=== PATIENT | female | born 1950 | race Caucasian/White ===

== ENCOUNTER 2018-09-06 12:54 | Emergency (ER) | payer MEDICARE, BC ==
[2018-09-06 13:02] VITALS: RESP 18
[2018-09-06] MEDS ORDERED: SODIUM CHLORIDE 0.9% 1,000 ML IV STA (13:33)
[2018-09-06] MEDS ORDERED: METOCLOPRAMIDE 5 MG/ML 2 ML VIAL IVP STA (13:33)
[2018-09-06] MEDS ORDERED: diphenhydrAMINE 50 MG/ML 1 ML VIAL IVP STA (13:33)
--- NOTE | 2018-09-06 14:05 | ED ---
General Adult HPI - General Chief complaint: Headache Stated complaint: VIERA, vision changes Time Seen by Provider: 09/06/18 13:24 Source: patient, RN notes reviewed Mode of arrival: ambulatory Limitations: no limitations - History of Present Illness Initial comments: Patient's a 68-year-old female presenting to the emergency room today with a chief complaint of diplopia and headache. Patient does admit that headache started 2 days ago. She states it's located on the right side. She admits that it's located around the right eye and down into the jaw at times. He felt that it was due to some neck pain that she was having. She states that it is worse on the right side worse with certain movements of rotation. Patient unable to describe the type pain in the headache is. Currently rates an 8/10. States that she did take aspirin this morning for the headache but has not taken any else. Admits that yesterday began noticing double vision when she is using both eyes. When she covers left or right vision is normal at 1 eye at a time. Patient states she's never had symptoms similar to this in the past. She denies any other complaints. Patient denies any recent fever, chills, shortness of breath, chest pain, back pain, abdominal pain, nausea or vomiting, numbness or tingling, dysuria or hematuria, constipation or diarrhea, or any other complaints. - Related Data Home Medications Medication Instructions Recorded Confirmed Aspirin 650 mg PO DAILY PRN 09/06/18 09/06/18 buPROPion HCL [Wellbutrin SR] 150 mg PO BID 09/06/18 09/06/18 Allergies Allergy/AdvReac Type Severity Reaction Status Date / Time Penicillins Allergy Rash/Hives Verified 09/06/18 13:27 Sulfa (Sulfonamide Allergy tongue Verified 09/06/18 13:27 Antibiotics) swelling Review of Systems ROS Statement: Those systems with pertinent positive or pertinent negative responses have been documented in the HPI. ROS Other: All systems not noted in ROS Statement are negative. Past Medical History Past Medical History: No Reported History Additional Past Medical History / Comment(s): hx. colon polyps History of Any Multi-Drug Resistant Organisms: None Reported Past Surgical History: Tonsillectomy Additional Past Surgical History / Comment(s): catarat surg. Past Anesthesia/Blood Transfusion Reactions: No Reported Reaction Past Psychological History: No Psychological Hx Reported Smoking Status: Former smoker Past Alcohol Use History: Occasional Past Drug Use History: None Reported - Past Family History Mother Family Medical History: No Reported History General Exam - General Exam Comments Initial Comments: General: The patient is awake and alert, in no distress, and does not appear acutely ill. Eye: Pupils are equal, round and reactive to light, extra-ocular movements are intact. No nystagmus. There is normal conjunctiva bilaterally. No signs of icterus. Pressure in the right eye was 9 and pressure in the left 10. Ears, nose, mouth and throat: There are moist mucous membranes and no oral lesions. Mild tenderness to the temp oral area on the right on palpation. Neck: The neck is supple Cardiovascular: There is a regular rate and rhythm. No murmur, rub or gallop is appreciated. Respiratory: Lungs are clear to auscultation, respirations are non-labored, breath sounds are equal. No wheezes, stridor, rales, or rhonchi. Musculoskeletal: Normal ROM, no tenderness. Neurological: A&O x 3. CN II-XII intact, There are no obvious motor or sensory deficits. Coordination appears grossly intact. Speech is normal. Strength 5/5 bilaterally both upper and lower extremities. Normal rapid alternating movements. Mild over shooting with finger to nose. Skin: Skin is warm and dry and no rashes or lesions are noted. Psychiatric: Cooperative, appropriate mood & affect, normal judgment. Limitations: no limitations Course Vital Signs 09/06/18 12:59 Temperature 97.5 F L Pulse Rate 86 Respiratory 18 Rate Blood Pressure 158/89 O2 Sat by Pulse 98 Oximetry EKG Findings - EKG Comments: EKG Findings:: EKG performed at 1401: Shows normal sinus rhythm at [address] interval 162. QRS 88. QT/QTC 378/425. No acute ST changes. Medical Decision Making - Medical Decision Making 68-year-old female who presents emergency room today with chief complaint of diplopia and headache. Patient reexamined at this time shows no signs of distress. Patient's labs been reviewed showed a normal sed rate. CRP was 21. Patient's CT of the head reviewed shows no acute intracranial mass, hemorrhage or midline shift. Diffuse age-related cerebral atrophy and chronic small vessel ischemia. Case discussed in detail with attending physician Dr. Enrique did discuss with Dr. Mcneil inside sales territory manager on-call. He does recommend the patient is coming to his office and he will see them at 5 PM. Patient updated of the results and plan states understanding. States that she will go directly to his office. - Lab Data Result diagrams: 09/06/18 13:51 09/06/18 13:51 Lab Results 09/06/18 09/06/18 09/06/18 Range/Units 13:51 13:51 13:51 WBC 5.4 (3.8-10.6) k/uL RBC 4.53 (3.80-5.40) m/uL Hgb 14.4 (11.4-16.0) gm/dL Hct 44.5 (34.0-46.0) % MCV 98.3 (80.0-100.0) fL MCH 31.9 (25.0-35.0) pg MCHC 32.5 (31.0-37.0) g/dL RDW 12.4 (11.5-15.5) % Plt Count 355 (150-450) k/uL Neutrophils % 70 % Lymphocytes % 20 % Monocytes % 5 % Eosinophils % 2 % Basophils % 1 % Neutrophils # 3.8 (1.3-7.7) k/uL Lymphocytes # 1.1 (1.0-4.8) k/uL Monocytes # 0.3 (0-1.0) k/uL Eosinophils # 0.1 (0-0.7) k/uL Basophils # 0.1 (0-0.2) k/uL ESR 15 (0-20) mm/hr PT (9.0-12.0) sec INR (<1.2) APTT (22.0-30.0) sec Sodium 137 (137-145) mmol/L Potassium 4.4 (3.5-5.1) mmol/L Chloride 106 (98-107) mmol/L Carbon Dioxide 25 (22-30) mmol/L Anion Gap 6 mmol/L BUN 11 (7-17) mg/dL Creatinine 0.57 (0.52-1.04) mg/dL Est GFR (CKD-EPI)AfAm >90 (>60 ml/min/1.73 sqM) Est GFR (CKD-EPI)NonAf >90 (>60 ml/min/1.73 sqM) Glucose 101 H (74-99) mg/dL Calcium 8.6 (8.4-10.2) mg/dL Total Bilirubin 0.5 (0.2-1.3) mg/dL AST 18 (14-36) U/L ALT 25 (9-52) U/L Alkaline Phosphatase 84 (38-126) U/L Total Creatine Kinase 65 (30-135) U/L CK-MB (CK-2) 0.5 (0.0-2.4) ng/mL CK-MB (CK-2) Rel Index 0.8 Troponin I <0.012 (0.000-0.034) ng/mL C-Reactive Protein 21.1 H (<10.0) mg/L Total Protein 6.4 (6.3-8.2) g/dL Albumin 3.8 (3.5-5.0) g/dL 09/06/18 Range/Units 13:51 WBC (3.8-10.6) k/uL RBC (3.80-5.40) m/uL Hgb (11.4-16.0) gm/dL Hct (34.0-46.0) % MCV (80.0-100.0) fL MCH (25.0-35.0) pg MCHC (31.0-37.0) g/dL RDW (11.5-15.5) % Plt Count (150-450) k/uL Neutrophils % % Lymphocytes % % Monocytes % % Eosinophils % % Basophils % % Neutrophils # (1.3-7.7) k/uL Lymphocytes # (1.0-4.8) k/uL Monocytes # (0-1.0) k/uL Eosinophils # (0-0.7) k/uL Basophils # (0-0.2) k/uL ESR (0-20) mm/hr PT 9.9 (9.0-12.0) sec INR 0.9 (<1.2) APTT 25.2 (22.0-30.0) sec Sodium (137-145) mmol/L Potassium (3.5-5.1) mmol/L Chloride (98-107) mmol/L Carbon Dioxide (22-30) mmol/L Anion Gap mmol/L BUN (7-17) mg/dL Creatinine (0.52-1.04) mg/dL Est GFR (CKD-EPI)AfAm (>60 ml/min/1.73 sqM) Est GFR (CKD-EPI)NonAf (>60 ml/min/1.73 sqM) Glucose (74-99) mg/dL Calcium (8.4-10.2) mg/dL Total Bilirubin (0.2-1.3) mg/dL AST (14-36) U/L ALT (9-52) U/L Alkaline Phosphatase (38-126) U/L Total Creatine Kinase (30-135) U/L CK-MB (CK-2) (0.0-2.4) ng/mL CK-MB (CK-2) Rel Index Troponin I (0.000-0.034) ng/mL C-Reactive Protein (<10.0) mg/L Total Protein (6.3-8.2) g/dL Albumin (3.5-5.0) g/dL Disposition Clinical Impression: Diplopia, Headache Disposition: HOME SELF-CARE Condition: Good Instructions: Acute Headache (ED) Additional Instructions: Please proceed to your inside sales territory manager Dr. Mcneil office to meet him at 5p.m. Is patient prescribed a controlled substance at d/c from ED?: No Referrals: Kevin Hernandez MD [Primary Care Provider] - 1-2 days Nisha Mcneil MD [STAFF PHYSICIAN] - 1-2 days Time of Disposition: 15:59
[2018-09-06 14:10] LABS: Basophils # (A) 0.1 k/uL (0-0.2); Basophils % (A) 1 %; Eosinophils # (A) 0.1 k/uL (0-0.7); Eosinophils % (A) 2 %; HCT 44.5 % (34.0-46.0); HGB 14.4 gm/dL (11.4-16.0); Lymphocytes # (A) 1.1 k/uL (1.0-4.8); Lymphocytes % (A) 20 %; MCH 31.9 pg (25.0-35.0); MCHC 32.5 g/dL (31.0-37.0); MCV 98.3 fL (80.0-100.0); Mean Platelet Volume 6.4; Monocytes # (A) 0.3 k/uL (0-1.0); Monocytes % (A) 5 %; Neutrophils # (A) 3.8 k/uL (1.3-7.7); Neutrophils % (A) 70 %; Platelet Count 355 k/uL (150-450); RBC 4.53 m/uL (3.80-5.40); RDW 12.4 % (11.5-15.5); WBC 5.4 k/uL (3.8-10.6)
[2018-09-06 14:13] LABS: Chloride 106 mmol/L (98-107)
[2018-09-06 14:17] LABS: ALT 25 U/L (9-52); AST 18 U/L (14-36); Albumin 3.8 g/dL (3.5-5.0); Alkaline Phosphatase 84 U/L (38-126); Anion Gap 6 mmol/L; Blood Urea Nitrogen 11 mg/dL (7-17); C Reactive Protein 21.1 mg/L (<10.0); Calcium 8.6 mg/dL (8.4-10.2); Carbon Dioxide 25 mmol/L (22-30); Glucose 101 mg/dL (74-99); Potassium 4.4 mmol/L (3.5-5.1); Sodium 137 mmol/L (137-145); Total Bilirubin 0.5 mg/dL (0.2-1.3); Total Protein 6.4 g/dL (6.3-8.2)
[2018-09-06 14:21] LABS: Creatine Kinase 65 U/L (30-135)
[2018-09-06 14:22] LABS: INR 0.9 (<1.2); Partial Thromboplastin Time 25.2 sec (22.0-30.0); Prothrombin Time 9.9 sec (9.0-12.0)
[2018-09-06 14:34] LABS: Creatine Kinase MB 0.5 ng/mL (0.0-2.4); Troponin I <0.012 ng/mL (0.000-0.034)
--- NOTE | 2018-09-06 14:59 | CT ---
EXAMINATION TYPE: CT brain wo con DATE OF EXAM: 09/06/2018 HISTORY: dizziness and double vision CT DLP: 1098.4 mGycm. Automated Exposure Control for Dose Reduction was Utilized. TECHNIQUE: CT scan of the head is performed without contrast. COMPARISON: None. FINDINGS: There is no acute intracranial hemorrhage or midline shift identified. There is diffuse v entricular and sulcal prominence consistent with diffuse age-related cerebral atrophy. There is low- attenuation in the periventricular white matter consistent with chronic small vessel ischemic change. The globes are intact and the visualized sinuses are clear. IMPRESSION: No acute intracranial hemorrhage or midline shift. There is diffuse age-related cerebra l atrophy and chronic small vessel ischemic change noted.
[2018-09-06 15:14] LABS: Erythrocyte Sedimentation Rate 15 mm/hr (0-20)
[2018-09-06] MEDS ORDERED: KETOROLAC 30 MG/ML 1 ML VIAL IVP STA (15:37)
[2018-09-06 16:14] VITALS: BP 152/90; PULSE 72; TEMP 98.2
== END 2018-09-06 16:09 | disposition home or self-care (01) ==
LOC: EC 12:54
DX: H53.2 Diplopia (principal); R51 Headache; G31.1 Senile degeneration of brain, not elsewhere classified; M54.2 Cervicalgia; Z79.899 Other long term (current) drug therapy; Z88.0 Allergy status to penicillin; Z88.2 Allergy status to sulfonamides; Z87.891 Personal history of nicotine dependence
CPT/HCPCS: 36415; 93005; 80053; 85652; 82550; 82553; 84484; 85025; 85610; 85730; 86140; 70450; 99284; 96374; 96375 ×2; J1200; J2765; J1885

== ENCOUNTER 2018-09-06 17:36 | Inpatient (IN) | payer MEDICARE, BC ==
[2018-09-06] MEDS ORDERED: methylPREDNISolone SOD SUCCI 125 MG/2 ML VIAL IV STA (18:11)
[2018-09-06] MEDS ORDERED: NALOXONE 0.4 MG/ML 1 ML VIAL IV PRN (18:19)
--- NOTE | 2018-09-06 18:19 | ED ---
General Adult HPI - General Chief complaint: Recheck/Abnormal Lab/Rx Stated complaint: DOUBLE VISION Time Seen by Provider: 09/06/18 17:42 Source: patient, family, RN notes reviewed, old records reviewed Mode of arrival: ambulatory Limitations: no limitations - History of Present Illness Initial comments: Chief complaint and history of present illness this is a 68-year-old female seen earlier in emergency room and sent over to the rn operating room office for evaluation. He has sent her back with the probable diagnosis of temporal arteritis. He suggested the patient be admitted the hospital started on site Medrol 1 g with consultation from vascular surgery for biopsy as well as an MRI in the morning. I discussed the case with Dr. Samson. Patient be admitted to her service with the above suggestions to be followed. Patient has no other complaints other than the original complaint of discomfort to the right restorationist area with diplopia developed over the past 24 hours. The first chart was reviewed at length. Her CRP was elevated at 21. - Related Data Home Medications Medication Instructions Recorded Confirmed Aspirin 650 mg PO DAILY PRN 09/06/18 09/06/18 buPROPion HCL [Wellbutrin SR] 150 mg PO BID 09/06/18 09/06/18 Allergies Allergy/AdvReac Type Severity Reaction Status Date / Time Penicillins Allergy Rash/Hives Verified 09/06/18 17:41 Sulfa (Sulfonamide Allergy tongue Verified 09/06/18 17:41 Antibiotics) swelling Review of Systems ROS Statement: Those systems with pertinent positive or pertinent negative responses have been documented in the HPI. Review of systems unchanged from earlier visit with discomfort to the right restorationist area with diplopia affecting the right eye mild discomfort to the right side of the face. No other complaints. Past medical problems: Polyps, surgeries tonsillectomy and cataract surgery. Family history noncontributory former smoker quit years ago. Denies any connective tissue disorders or diagnoses of other medical problems in the past. ALLERGIES to penicillin and sulfa. ROS Other: All systems not noted in ROS Statement are negative. Past Medical History Past Medical History: No Reported History Additional Past Medical History / Comment(s): hx. colon polyps History of Any Multi-Drug Resistant Organisms: None Reported Past Surgical History: Tonsillectomy Additional Past Surgical History / Comment(s): catarat surg. Past Anesthesia/Blood Transfusion Reactions: No Reported Reaction Past Psychological History: No Psychological Hx Reported Smoking Status: Former smoker Past Alcohol Use History: Occasional Past Drug Use History: None Reported - Past Family History Mother Family Medical History: No Reported History General Exam - General Exam Comments Initial Comments: Physical examination again finds the patient with right sixth nerve palsy. Patient states that the pain started 2 days ago to the right side of her restorationist and face as well as right side of her face. She noticed the double vision yesterday and continues today. Patient's vital signs are stable temp 97.8, pulse 85, respiratory rate 18, blood pressure 173/104, pulse ox 96% on room air. Patient presents with diplopia secondary to right eye sixth nerve palsy. No pulsatile arteries appreciated this time. Patient reports the discomfort becomes worse she See area. No other neuro deficits. Lungs are clear heart normal. Limitations: no limitations Course Vital Signs 09/06/18 17:39 Temperature 97.8 F Pulse Rate 85 Respiratory 18 Rate Blood Pressure 173/104 O2 Sat by Pulse 96 Oximetry Medical Decision Making - Medical Decision Making Medical decision making; this 68-year-old female who was sent to the emergency room from the rn operating room office with a diagnosis of nerve palsy temporal arteritis. I discussed the case with Dr. Samson, patient be admitted to her service with consultation from vascular and ophthalmology. Disposition Clinical Impression: Temporal arteritis Disposition: ADMITTED IP TO THIS HOSP Condition: Serious Is patient prescribed a controlled substance at d/c from ED?: No Referrals: Kevin Hernandez MD [Primary Care Provider] - 1-2 days Time of Disposition: 18:19
[2018-09-06] MEDS ORDERED: ASPIRIN 325 MG TAB PO PRN (18:24)
[2018-09-06] MEDS: SODIUM CHLORIDE 0.9% 1,000 ML IV SCH (18:28)
[2018-09-06] MEDS ORDERED: LISINOPRIL 2.5 MG TAB PO STA (18:48)
[2018-09-06] MEDS: traMADol 50 MG TAB PO PRN (19:39)
[2018-09-06 19:50] VITALS: BMI 22.7
[2018-09-06] MEDS: buPROPion SR 150 MG TABLET.ER PO SCH (21:34)
[2018-09-07] MEDS: traMADol 50 MG TAB PO PRN ×3 (03:11→21:24)
[2018-09-07] MEDS: SODIUM CHLORIDE 0.9% 1,000 ML IV SCH (06:17)
[2018-09-07] MEDS: LISINOPRIL 5 MG TAB PO SCH (07:41)
[2018-09-07] MEDS: buPROPion SR 150 MG TABLET.ER PO SCH ×2 (07:41→21:24)
--- NOTE | 2018-09-07 12:41 | CONS ---
DATE OF CONSULTATION: 09/07/2018 This is a 68-year-old pleasant female. She came to the emergency room with history of discomfort and pain of the right side of the taoist and right shoulder and in the back of the neck for the last 2 days. The patient has history of diplopia. The patient was seen by the process laboratory specialist and referred to the ER to rule out temporal arteritis as well as for MRI this morning. No history of loss of vision. No history of any motor deficit. Patient has been started on steroids. MEDICAL HISTORY: No history of diabetes, hypertension or coronary artery disease. PHYSICAL EXAMINATION: On examination, the patient was seen in her room. Neck is supple. Trachea central. CHEST: Clear to auscultation. ABDOMEN: Soft. Brachial radial pulses are present. The patient has a normal motor function. The patient has double vision, temporal headache. No tenderness noted in the temporal area. ESR is 15. I have discussed with Dr. Samson. Patient most likely has sixth nerve palsy. The patient is scheduled to have a carotid ultrasound and MRI. In the meantime we will continue with steroids and we will review the MRI and ultrasound. Then if the patient needs biopsy, we will proceed. In the meantime we will continue with steroids. Will follow with you. MMODL / IJN: [id number] / [place]
--- NOTE | 2018-09-07 13:16 | US ---
EXAMINATION TYPE: US carotid duplex BILAT DATE OF EXAM: 09/07/2018 COMPARISON: NONE CLINICAL HISTORY: Diplopia, blurred vision. EXAM MEASUREMENTS: RIGHT: Peak Systolic Velocity (PSV) cm/sec ----- Right CCA: 73.5 ----- Right ICA: 70.2 ----- Right ECA: 108.1 ICA/CCA ratio: 1.0 RIGHT: End Diastole cm/sec ----- Right CCA: 16.4 ----- Right ICA: 21.9 ----- Right ECA: 9.5 LEFT: Peak Systolic Velocity (PSV) cm/sec ----- Left CCA: 83.2 ----- Left ICA: 70.0 ----- Left ECA: 84.5 ICA/CCA ratio: 0.8 LEFT: End Diastole cm/sec ----- Left CCA: 14.4 ----- Left ICA: 9.1 ----- Left ECA: 12.0 VERTEBRALS (direction of flow): Right Vertebral: Antegrade Left Vertebral: Antegrade Rhythm: Normal No significant stenosis seen, no elevated velocities. IMPRESSION: Mild degree of grayscale atheromatous plaquing with no sonographically evident hemodynam ically significant stenosis within either visualized carotid arterial system. Criteria for Assigning % of Stenosis / Diameter reduction (Estimation based on the indirect measurements of the internal carotid artery velocities (ICA PSV). 1. Normal (no stenosis)=ICA PSV < 125 cm/s: ratio < 2.0: ICA EDV<40 cm/s. 2. Less than 50% stenosis=ICA PSV < 125 cm/s: ratio < 2.0: ICA EDV<40 cm/s. 3. 50 to 69% stenosis=ICA PSV of 125 to 230 cm/s: ration 2.0 ? 4.0: ICA EDV 40-100 cm/s. 4. Greater than 70% stenosis to near occlusion= ICA PSV > 230 cm/s: ratio > 4.0: ICA EDV > 100 cm/s. 5. Near occlusion= ICA PSV velocities may be low or undetectable: variable ratio and ICA EDV. 6. Total occlusion=unable to detect flow.
[2018-09-07] MEDS ORDERED: ARTIFICIAL TEARS-HYPROMELLOSE DROPS 15 ML BTL RIGHT EYE PRN (13:49)
--- NOTE | 2018-09-07 13:53 | P.HPIM ---
History of Present Illness H&P Date: 09/07/18 Chief Complaint: Diplopia and headache This is a 68-year-old female patient of Dr. Hernandez with past medical history recurrent depression, remote history of smoking. Patient initially presented to the emergency center in the early afternoon on September 06 with complaints of diplopia and headache that started 2 days ago on the right side. Headache was located around the right eye and down into the jaw at times. She also was having some neck pain. Pain was worse with certain movements. She started having double vision on Friday evening when she noticed while she was watching TV. This occurs when she has both eyes open but if she covers her right eye her vision is clear. No fever or chills, shortness of breath, chest pain. Patient was sent to the night warehouse manager for evaluation and then returned to the emergency room as the ophthalmologists thought the probable diagnosis was temporal arteritis and patient will need to be admitted to the hospital. Patient was started on IV Solu-Medrol 1 dose of 1000 mg IV piggyback , consult with Dr. Ta and ophthalmology and patient was admitted to the [facility] floor. Patient has been afebrile, heart rate in the 80s, blood pressure 128/76, blood pressure was initially elevated 173/104, pulse ox 94% on room air. White count 5.4, hemoglobin 14.4, platelet count 355, lites within normal limits, creatinine 0.57, blood sugar 101. Liver function tests within normal limits, C-reactive protein 21.1, sed rate 15. Review of Systems All systems: negative Constitutional: Denies anorexia, Denies chills, Denies fatigue, Denies fever, Denies poor appetite, Denies weakness, Denies weight loss Eyes: right diplopia, right pain, denies blurred vision Ears, nose, mouth and throat: Reports headache, Denies dysphagia, Denies hoarseness, Denies nasal discharge, Denies swelling in mouth, Denies swelling in throat, Denies sore throat, Denies vertigo Cardiovascular: Denies chest pain, Denies dyspnea on exertion, Denies edema, Denies leg edema, Denies lightheadedness, Denies shortness of breath, Denies syncope Respiratory: Denies cough, Denies cough with sputum, Denies dyspnea, Denies excessive sputum, Denies hemoptysis, Denies home oxygen, Denies wheezing Gastrointestinal: Denies abdominal pain, Denies diarrhea, Denies loss of appetite, Denies melena, Denies nausea, Denies vomiting Genitourinary: Denies dysuria, Denies hematuria Musculoskeletal: Denies frequent falls, Denies gait dysfunction, Denies muscle weakness, Denies myalgias Integumentary: Denies pruritus, Denies rash, Denies wounds Neurological: Reports double vision, Reports headaches, Reports visual changes, Denies aphasia, Denies ataxia, Denies change in mentation, Denies change in speech, Denies confusion, Denies gait dysfunction, Denies head injury, Denies lack of coordination, Denies loss of vision, Denies memory loss, Denies numbness , Denies paresthesias, Denies seizures, Denies syncope, Denies tingling, Denies vertigo, Denies weakness Psychiatric: Denies anxiety, Denies depression Endocrine: Denies fatigue, Denies weight change Past Medical History Past Medical History: Osteoarthritis (OA), Pneumonia Additional Past Medical History / Comment(s): hx. colon polyps History of Any Multi-Drug Resistant Organisms: None Reported Past Surgical History: Tonsillectomy Additional Past Surgical History / Comment(s): catarat surg. Past Anesthesia/Blood Transfusion Reactions: No Reported Reaction Smoking Status: Former smoker Additional Past Alcohol Use History / Comment(s): Patient was a smoker one pack per day for more than 30 years and quit approximately 3 weeks ago. No marijuana or illicit drug use. She lives at home with her . She does not have any nebulizer, CPAP or ambulatory devices at home. She recently retired from [employer] May 2018. - Past Family History Mother Family Medical History: No Reported History Additional Family Medical History / Comment(s): Mother from Alzheimer's dementia. Father Additional Family Medical History / Comment(s): Father from coronary artery disease. Sister(s) Additional Family Medical History / Comment(s): Patient has 2 sisters with no major medical problems. Patient does not have any brothers. Patient has one son with no major medical problems. Medications and Allergies Home Medications Medication Instructions Recorded Confirmed Type Aspirin 325 mg PO DAILY PRN 09/06/18 09/06/18 History buPROPion HCL [Wellbutrin SR] 150 mg PO BID 09/06/18 09/06/18 History Allergies Allergy/AdvReac Type Severity Reaction Status Date / Time Penicillins Allergy Rash/Hives Verified 09/06/18 18:14 Sulfa (Sulfonamide Allergy tongue Verified 09/06/18 18:14 Antibiotics) swelling Physical Exam Vitals: Vital Signs Temp Pulse Pulse Pulse Resp BP BP 09/07/18 04:46 97.2 F L 88 16 128/76 09/06/18 23:06 82 18 09/06/18 21:15 96.9 F L 81 16 144/81 09/06/18 19:30 97.5 F L 83 16 157/74 09/06/18 18:48 18 142/94 09/06/18 17:39 97.8 F 85 18 173/104 Pulse Ox 09/07/18 04:46 94 L 09/06/18 23:06 09/06/18 21:15 96 09/06/18 19:30 96 09/06/18 18:48 09/06/18 17:39 96 Intake and Output 09/06/18 09/07/18 09/07/18 22:59 06:59 14:59 Intake Total 550 480 Balance 550 480 Intake: Intake, IV Titration 550 Amount Sodium Chloride 0.9% 1, 450 000 ml @ 75 mls/hr IV . [id number] [facility] Rx#:[id number] methylPREDNISolone SOD 100 SUCC 1,000 mg In Sodium Chloride 0.9% 100 ml @ 100 mls/hr IVPB ONCE ONE Rx#:[id number] Oral 480 Other: Voiding Method Toilet # Voids 1 1 Weight 65.77 kg 65.77 kg Gen: This is a 68-year-old female patient. Patient is resting in bed appears to be comfortable and in no acute distress. HEENT: Head is atraumatic, normocephalic. Pupils equal, round. Sclerae is anicteric. NECK: Supple. No JVD. No lymphadenopathy. No thyromegaly. LUNGS: Clear to auscultation. No wheezes or rhonchi. No intercostal retractions. HEART: Regular rate and rhythm. No murmur. ABDOMEN: Soft. Bowel sounds are present. No masses. No tenderness. EXTREMITIES: No pedal edema. No calf tenderness. NEUROLOGICAL: Patient is awake, alert and oriented x3. Cranial nerves 2 -5 7- 12 are grossly intact. No abduction movement of the right Thrombosis Risk Factor Assmnt - DVT/VTE Prophylaxis DVT/VTE Prophylaxis: Mechanical Prophylaxis ordered - Choose All That Apply Any of the Below Risk Factors Present?: Yes Each Factor Represents 1 point: Medical pt on bed rest Other Risk Factors: Yes Each Risk Factor Represents 2 Points: Age 61-74 years Other congenital or acquired thrombophilia - If yes, enter type in comment: No Thrombosis Risk Factor Assessment Total Risk Factor Score: 3 Thrombosis Risk Factor Assessment Level: Moderate Risk Assessment and Plan Plan: 1. Right eye diplopia and pain with cranial nerve palsy, rule out temporal arteritis. Patient has received 1 dose of IV Solu-Medrol and Solu-Medrol 250 mg every 6 hours ordered, Valtrex 1 g [address] times daily[address] Consult with Dr. Keyon soares. No plan for temporal artery biopsy as patient's sed rate is normal. Continue tramadol 50 g every 6 hours as needed for pain. PT and OT evaluations, I patch ordered and saline drops 2. Recurrent depression. Continue Wellbutrin 150 mg twice daily. 3. Hypertension, new diagnosis. Continue lisinopril 5 mg daily. 4. Remote history of tobacco use. Patient quit 3 weeks ago. 5. DVT prophylaxis. SCDs and MIKA hose. 6. GI prophylaxis. Pepcid. Patient will be admitted to the hospital for a minimum of 3 night stay. Discharge plan: Return home Impression and plan of care have been directed as dictated by the signing physician. Yanira Gilliland nurse practitioner acting as scribe for signing physician.
[2018-09-07 14:03] LABS: Glucose,Whole Blood 121 mg/dL (75-99)
[2018-09-07] MEDS: INSULIN ASPART 100 UNIT/ML 1 ML 10 ML VIAL SQ SCH ×3 (14:16→21:26)
[2018-09-07] MEDS: valACYclovir HCL 1,000 MG TABLET PO SCH ×3 (14:35→21:24)
--- NOTE | 2018-09-07 16:46 | MR ---
EXAMINATION TYPE: MR brain wo/w con DATE OF EXAM: 09/07/2018 COMPARISON: 9 HISTORY: CN palsy, double vision TECHNIQUE: Multiplanar, multisequence images of the brain and brainstem is performed without and with IV contras t, utilizing 7.5 mL intravenous Gadavist . FINDINGS: There is cerebral cortical atrophy. There is no mass effect nor midline shift. There is no sign of intracranial hemorrhage. On the T2 and FLAIR images there are extensive patches of increased signal in the periventricular white matter mainly in the centrum semiovale and internal capsule bilat erally. There is coalescent density. These measure up to 2 cm. Ventricles have fairly normal size. Th ere is no evidence of cortical infarct. Brainstem appears intact. There is mild thinning of the corpus callosum. Sella turcica appears normal . There is no evidence of orbital mass. There is no evidence of a posterior fossa mass. Internal auditory canals appear normal. The contrast images show no pathologic enhancement. There is arterial flow in the anterior middle and posterior cerebral arteries. There is arterial flow in the vertebrobasilar artery system. I see no e vidence of intracranial arterial stenosis. IMPRESSION: Cerebral atrophy. White matter changes consistent with chronic small vessel ischemia or demyelinating disease. No evidence of cortical infarct.
[2018-09-07 17:04] LABS: Glucose,Whole Blood 136 mg/dL (75-99)
[2018-09-07 20:38] LABS: Glucose,Whole Blood 142 mg/dL (75-99)
[2018-09-07 20:59] LABS: Hemoglobin A1C 5.1 % (4.0-6.0)
--- NOTE | 2018-09-07 22:41 | CONS ---
CONSULTATION CHIEF COMPLAINT: Diplopia. HISTORY OF PRESENT ILLNESS: Diplopia for the last 2 days following a severe headache on the right temporal area. REVIEW OF MEDICAL SYSTEMS: Reviewed. PHYSICAL EXAMINATION: Eye examination: Vision 20/25 right eye and 20/20 left eye. Extraocular motility shows right lateral rectus paresis. Pupils are equal and reactive. Confrontation normal. Tension applanation 16 mm right eye and 17 left eye. The lens shows an implant in both eyes. Discs: No disc edema in both eyes. ASSESSMENT: Right lateral rectus palsy. PLAN: MRI was performed. I reviewed MRI. It shows cerebellar ischemia versus demyelinating disease. The patient was essentially earlier diagnosed with possible temporal arteritis. Sedimentation rate is not elevated and she is still on steroid with monitoring of blood sugar. I will reexamine the patient in the clinic on upcoming Friday at 10:00 am. The patient was informed. Thank you for the consultation. MMGEORGIANAL / KARINAN: [id number] /
[2018-09-08] MEDS: traMADol 50 MG TAB PO PRN (05:28)
[2018-09-08 07:05] LABS: Glucose,Whole Blood 153 mg/dL (75-99)
[2018-09-08] MEDS: INSULIN ASPART 100 UNIT/ML 1 ML 10 ML VIAL SQ SCH ×2 (07:36→11:45)
[2018-09-08] MEDS: LISINOPRIL 5 MG TAB PO SCH (07:37)
[2018-09-08] MEDS: buPROPion SR 150 MG TABLET.ER PO SCH (07:37)
[2018-09-08] MEDS: valACYclovir HCL 1,000 MG TABLET PO SCH (07:37)
[2018-09-08] MEDS ORDERED: FAMOTIDINE 20 MG TAB PO SCH (09:00)
[2018-09-08 11:34] LABS: Glucose,Whole Blood 130 mg/dL (75-99)
--- NOTE | 2018-09-08 12:19 | P.DS ---
Providers Date of admission: 09/06/18 18:19 Expected date of discharge: 09/08/18 Attending physician: Vianney Samson Consults: 09/06/18 18:19 Consult Physician Stat Consulting Provider: Tom Ta Consult Reason/Comments: Right temporal arteritis Do you want consulting provider notified?: Yes Consult Physician Stat Consulting Provider: Nisha Mcneil Consult Reason/Comments: Temporal arteritis, diplopia Do you want consulting provider notified?: Yes Primary care physician: Kevin David [facility] Course: This is a 68-year-old female patient of Dr. Hernandez with past medical history recurrent depression, remote history of smoking. Patient initially presented to the emergency center in the early afternoon on September 06 with complaints of diplopia and headache that started 2 days ago on the right side. Headache was located around the right eye and down into the jaw at times. She also was having some neck pain. Pain was worse with certain movements. She started having double vision on Friday evening when she noticed while she was watching TV. This occurs when she has both eyes open but if she covers her right eye her vision is clear. No fever or chills, shortness of breath, chest pain. Patient was sent to the [facility] for evaluation and then returned to the emergency room as the ophthalmologists thought the probable diagnosis was temporal arteritis and patient will need to be admitted to the hospital. Patient was started on IV Solu-Medrol 1 dose of 1000 mg IV piggyback , consult with Dr. Ta and ophthalmology and patient was admitted to the [facility] floor. Patient has been afebrile, heart rate in the 80s, blood pressure 128/76, blood pressure was initially elevated 173/104, pulse ox 94% on room air. White count 5.4, hemoglobin 14.4, platelet count 355, lites within normal limits, creatinine 0.57, blood sugar 101. Liver function tests within normal limits, C-reactive protein 21.1, sed rate 15. 1/15: MRI of the brain reveals cerebral atrophy. White matter changes consistent with chronic small vessel ischemia or demyelinating disease. No evidence of cortical infarct. Ultrasound of the carotids showed no hemodynamically significant stenosis. Patient has been afebrile, pulse ox 94% on room air, blood pressure 150/86, heart rate running in the 80s and 90s. Repeat sed rate 11. Patient has been seen by Dr. Ta. Temporal arteritis has been ruled out. Patient has also been seen by ophthalmology for right lateral rectus paresis with plan to reexamine the patient in the office on Friday at 10 AM. Patient will be discharged home today in stable condition. Discharge diagnoses: 1. 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 2. Recurrent depression. 3. Hypertension, new diagnosis. 4. Remote history of tobacco use. Discharge plan: Return home Impression and plan of care have been directed as dictated by the signing physician. Yanira Gilliland nurse practitioner acting as scribe for signing physician. Patient Condition at Discharge: Good Plan - Discharge Summary Discharge Rx Participant: Yes New Discharge Prescriptions: New Lisinopril [Zestril] 5 mg PO DAILY #30 tab valACYclovir HCL [Valtrex] 1,000 mg PO TID #18 tablet predniSONE 0 mg PO DIRECTED #45 tab Continue Aspirin 325 mg PO DAILY PRN PRN Reason: Headache buPROPion HCL [Wellbutrin SR] 150 mg PO BID Discharge Medication List Aspirin 325 mg PO DAILY PRN 09/06/18 [History] buPROPion HCL [Wellbutrin SR] 150 mg PO BID 09/06/18 [History] Lisinopril [Zestril] 5 mg PO DAILY #30 tab 09/08/18 [Rx] predniSONE 0 mg PO DIRECTED #45 tab 09/08/18 [Rx] valACYclovir HCL [Valtrex] 1,000 mg PO TID #18 tablet 09/08/18 [Rx] Follow up Appointment(s)/Referral(s): Purnima Guidry MD [STAFF PHYSICIAN] - 1 Week Nisha Mcneil MD [STAFF PHYSICIAN] - 09/11/18 10:00 am Kevin Hernandez MD [Primary Care Provider] - 1 Week Patient Instructions/Handouts: Temporal Arteritis (GEN) Activity/Diet/Wound Care/Special Instructions: Outpatient PT and OT Discharge Disposition: HOME SELF-CARE
[2018-09-08 13:03] VITALS: BP 127/77; PULSE 93; RESP 16; TEMP 97.6
== END 2018-09-08 14:16 | disposition home or self-care (01) | DRG 123 ==
LOC: EC 17:36 → 3NMEDONC 18:19 → 6PED 09-08 10:19
PROVIDERS: ADMIT Family Medicine; ATTEND Family Medicine
DX: H49.20 Sixth [abducent] nerve palsy, unspecified eye (principal); F33.9 Major depressive disorder, recurrent, unspecified; G37.9 Demyelinating disease of central nervous system, unspecified; I10 Essential (primary) hypertension; Z79.82 Long term (current) use of aspirin; Z79.899 Other long term (current) drug therapy; Z82.0 Family history of epilepsy and other diseases of the nervous system; Z82.49 Family history of ischemic heart disease and other diseases of the circulatory system; Z86.010 Personal history of colon polyps; Z87.891 Personal history of nicotine dependence; M19.90 Unspecified osteoarthritis, unspecified site; Z87.01 Personal history of pneumonia (recurrent); Z88.0 Allergy status to penicillin; Z88.2 Allergy status to sulfonamides; H53.2 Diplopia; Z98.42 Cataract extraction status, left eye; Z98.41 Cataract extraction status, right eye; Z96.1 Presence of intraocular lens
CPT/HCPCS: 70553; 83036; 85652; 93880; 96365; 99285

== ENCOUNTER → 2018-09-18 | Outpatient (CLI) | payer MEDICARE, BC ==
--- NOTE | 2018-09-18 14:27 | MR ---
EXAMINATION TYPE: MR angio head wo con DATE OF EXAM: 09/18/2018 COMPARISON: None HISTORY: sixth nerve palsy of right eye CONTRAST: None TECHNIQUE: Multiplanar multiecho imaging on a 3.0 Sherita magnet is performed through the atka of Alli lis. 3-D [id number] imaging is performed. Source images are reviewed on the computer in the axi al plane. Reconstructed images rotating on the computer are reviewed. FINDINGS: The internal carotid arteries bifurcate normally into A1 and M1 segments. The A2 segments are normal. Middle cerebral artery branches are normal. Ophthalmic arteries as visualized appear no rmal. Anterior communicating artery is patent. The right posterior communicating artery is absent. The left posterior communicating artery is absent. Vertebrobasilar arteries within the [id number] are normal. Posterior cerebral vasculature is norm al. No suspicious aneurysm or aneurysmal dilatation is evident. No obstructions are identified. No significant flow-limiting stenosis is evident. IMPRESSIONS: 1. NORMAL MRA [place].
== END | disposition home or self-care (01) ==
LOC: RADMRIMAIN 13:41
PROVIDERS: ATTEND Psychiatry & Neurology Neurology
DX: H49.21 Sixth [abducent] nerve palsy, right eye (principal); H49.01 Third [oculomotor] nerve palsy, right eye
CPT/HCPCS: 70544

== ENCOUNTER → 2018-10-10 | Outpatient (CLI) | payer MEDICARE, BC ==
--- NOTE | 2018-10-10 12:59 | XR ---
EXAMINATION TYPE: XR chest 2V DATE OF EXAM: 10/10/2018 COMPARISON: NONE HISTORY: Shortness of breath TECHNIQUE: Frontal and lateral views of the chest are obtained. FINDINGS: Scattered senescent parenchymal changes noted. Hyperinflation compatible with COPD. No evidence for infiltrate. No evidence for atelectasis. Heart size is stable. Mediastinal structures are stable and grossly unremarkable. No evidence for hilar prominence. Degenerative changes dorsal spine. IMPRESSION: 1. No evidence for acute pulmonary disease.
--- NOTE | 2018-10-10 13:00 | XR ---
EXAMINATION TYPE: XR ribs bilateral DATE OF EXAM: 10/10/2018 CLINICAL HISTORY: Pain, Fall 8 views of the bilateral ribs fail demonstrate evidence for displaced rib fracture or secondary sign of rib fracture. Visualized lungs are clear. No evidence for pneumothorax. IMPRESSION: 1. No displaced rib fractures seen. ICD 10 NO FRACTURE, INITIAL EVALUATION
== END ==
LOC: RADXRMAIN 12:22
PROVIDERS: ATTEND Internal Medicine Geriatric Medicine
DX: R06.02 Shortness of breath (principal)
CPT/HCPCS: 71046; 71110

== ENCOUNTER → 2020-02-17 | Outpatient (CLI) | payer MEDICARE, BC ==
--- NOTE | 2020-02-17 14:43 | CTL ---
EXAMINATION TYPE: CT Low Dose Lung DATE OF EXAM ORDERED: 02/17/2020 HISTORY: Long-term tobacco use. Lung cancer screening CT DLP: [address] CTDI: 1.8 mGy Automated exposure control for dose reduction was used. SCREENING VISIT: For study COMPARISON: Chest x-ray October 10, 2018 TECHNIQUE: Low dose computed tomography scan was performed through the chest at 1 mm thick sections a nd reconstructed images in the coronal plane at [address] DIAGNOSTIC QUALITY: Satisfactory FINDINGS: LUNG NODULES: None. Few scattered micronodules all measuring 3 mm or smaller in size, largest 3 x 2 mm seen best sagittal image 285 LUNGS: COPD: Severity: Moderate Fibrosis: Severity: Mild posterior bibasilar just above diaphragm. Lymph nodes: No greater than 1 cm Other findings: None BILATERAL PLEURAL SPACE: Effusion: None Calcification: None Thickening: None Pneumothorax: None HEART: Heart Size: Normal. Coronary calcification: Moderate versus stent proximal LAD, correlate clinically Pericardial effusion: None. OTHER FINDINGS: Upper abdomen: None. Bony thorax: Mild to moderate multilevel anterior spurring. Supraclavicular region: None. Other: Ascending aorta measures up to 4.0 cm in diameter axial image 31 series 3. IMPRESSION: No suspicious greater than [address] UP [address] CHEST RECOMMENDATION: Annual low-dose lung screening CT. CT LUNG RAD: Lung-Rad 1 Negative
== END | disposition home or self-care (01) ==
LOC: RADCTMAIN 14:03
PROVIDERS: ATTEND Internal Medicine Geriatric Medicine
DX: Z12.2 Encounter for screening for malignant neoplasm of respiratory organs (principal); Z87.891 Personal history of nicotine dependence

== ENCOUNTER 2020-09-04 19:13 | Inpatient (IN) | payer BC, MEDICARE ==
[2020-09-04] MEDS ORDERED: SODIUM CHLORIDE 0.9% 1,000 ML IV STA (19:20)
[2020-09-04] MEDS ORDERED: IPRATROPIUM-ALBUTEROL 3 ML NEB INHALATION STA (19:20)
[2020-09-04] MEDS ORDERED: MAGNESIUM SULFATE-D5W PMX 1 GM in DEXTROSE/WATER 1 100ML.BAG IVPB STA (19:20)
--- NOTE | 2020-09-04 19:38 | ED ---
SOB HPI - General Chief Complaint: Shortness of Breath Stated Complaint: DOMINIQUE Time Seen by Provider: 09/04/20 19:17 Source: patient, EMS Mode of arrival: EMS Limitations: no limitations - History of Present Illness Initial Comments: This 70-year-old female presents complaining of shortness of breath. She apparently has had it for the last 3 days but worse over the last 3 hours. She relates a history of COPD. She just recently quit smoking. She apparently used her inhalers approximately 15-20 times this afternoon prior to arrival. She denies any fevers or chills. She's had a slight cough with slight clear production. She has occasional chest heaviness bilaterally without radiation. She does present via EMS in extremis. The have her on a nonrebreather upon arrival and she received 125 mg of Solu-Medrol prior to arrival as well. She does not have a nebulizer machine at home. She denies any leg pain or swelling. No other complaints or modifying factors. She relates that her pulse oximeter at home was apparently 89% at lowest today. She also relates that her shortness of breath was much worse with any minimal exertion like getting up to go to the bathroom. - Related Data Home Medications Medication Instructions Recorded Confirmed buPROPion HCL [Wellbutrin SR] 150 mg PO BID 09/06/18 09/04/20 Albuterol Sulfate [Ventolin HFA] 1 - 2 puff INHALATION RT-Q6H PRN 09/04/20 09/04/20 Aspirin EC [Ecotrin Low Dose] 81 mg PO DAILY 09/04/20 09/04/20 Ergocalciferol [Vitamin D2] 50,000 unit PO TU 09/04/20 09/04/20 [place]-3 Fatty Acids/Fish Oil [Fish 1 cap PO DAILY 09/04/20 09/04/20 Oil 1,000 mg Softgel] Vitamin B Complex 1 cap PO DAILY 09/04/20 09/04/20 predniSONE 5 mg PO DAILY 09/04/20 09/04/20 Previous Rx's Medication Instructions Recorded lisinopriL [Zestril] 5 mg PO DAILY #30 tab 09/08/18 Allergies Allergy/AdvReac Type Severity Reaction Status Date / Time Penicillins Allergy Rash/Hives Verified 09/04/20 20:36 Sulfa (Sulfonamide Allergy tongue Verified 01/11/21 20:36 Antibiotics) swelling Review of Systems ROS Statement: Those systems with pertinent positive or pertinent negative responses have been documented in the HPI. ROS Other: All systems not noted in ROS Statement are negative. Past Medical History Past Medical History: COPD, Hypertension, Osteoarthritis (OA), Pneumonia Additional Past Medical History / Comment(s): hx. colon polyps History of Any Multi-Drug Resistant Organisms: None Reported Past Surgical History: Tonsillectomy Additional Past Surgical History / Comment(s): catarat surg. Past Anesthesia/Blood Transfusion Reactions: No Reported Reaction Past Psychological History: No Psychological Hx Reported Smoking Status: Never smoker Past Alcohol Use History: Occasional Past Drug Use History: None Reported - Past Family History Mother Family Medical History: No Reported History Additional Family Medical History / Comment(s): Mother from Alzheimer's dementia. Father Additional Family Medical History / Comment(s): Father from coronary artery disease. Sister(s) Additional Family Medical History / Comment(s): Patient has 2 sisters with no major medical problems. Patient does not have any brothers. Patient has one son with no major medical problems. General Exam - General Exam Comments Initial Comments: GENERAL: The patient is well nourished and well hydrated. VITAL SIGNS: Heart rate, blood pressure, respiratory rate reviewed as recorded in nurse's notes. EYES: Pupils are round and reactive. Extraocular movements are intact. No conjunctival / lid redness or swelling. ENT: No external evidence of injury, swelling, or ecchymosis. Airway is patent. Throat is clear. NECK: Nontender. No swelling or evidence of injury. No subcutaneous emphysema. Trachea is midline. No thyroid mass. HEART: Regular rate and rhythm. Good peripheral pulses. LUNGS/CHEST: Significant wheezing noted bilaterally, very tachypneic, accessory muscle use noted. No ecchymosis, subcutaneous emphysema, or tenderness. ABDOMEN: Abdomen soft without tenderness. No palpable masses or organomegaly. No peritoneal signs. No abdominal wall swelling or ecchymosis. EXTREMITIES: No extremity tenderness. Normal muscle tone and function. No thoracolumbar tenderness. NEUROLOGIC: Sensation is grossly intact. Cranial nerve exam reveals face is symmetrical, tongue is midline, speech is clear. SKIN: No abrasions or ecchymosis is noted. No induration or masses noted. PSYCHIATRIC: Alert and oriented. Appropriate behavior and judgment with moderate anxiety. Limitations: no limitations Course Vital Signs 09/04/20 09/04/20 09/04/20 19:16 19:22 19:26 Temperature 97.5 F L Pulse Rate 93 106 H Respiratory 30 H 30 H Rate Blood Pressure 180/128 O2 Sat by Pulse 95 Oximetry 09/04/20 09/04/20 19:43 19:46 Temperature Pulse Rate 106 H 105 H Respiratory 23 Rate Blood Pressure O2 Sat by Pulse 96 Oximetry Medical Decision Making - Medical Decision Making The patient was seen and examined. All diagnostics are reviewed. Case is discussed with the respiratory therapist in 2 DuoNeb breathing treatments will be utilized. It is felt as though she may benefit from use of BiPAP and she is placed on this. Magnesium is given intravenously. She already received Solu- Medrol via EMS so this is not repeated. The laboratory is essentially within normal limits except for a slight elevation of the hemoglobin and hematocrit. The COVID test is negative. The chest x-ray did not show any acute process. She is started on the BiPAP and is doing much better. The patient is also ordered 2 additional albuterol treatments. Attempts will be made to wean her off BiPAP if possible. Case is discussed with Dr. Hernandez and he is agreeable to admission to the hospital. It is felt as though her main problem is that of a COPD exacerbation. Dr. Hernandez is agreeable with one dose of Zithromax and Rocephin and would like Dr. Chandra to consult. - Lab Data Result diagrams: 09/04/20 19:46 09/04/20 19:46 Lab Results 09/04/20 09/04/20 09/04/20 Range/Units 19:46 19:46 19:46 WBC 7.1 (3.8-10.6) k/uL RBC 5.02 (3.80-5.40) m/uL Hgb 16.7 H (11.4-16.0) gm/dL Hct 49.6 H (34.0-46.0) % MCV 98.9 (80.0-100.0) fL MCH 33.3 (25.0-35.0) pg MCHC 33.7 (31.0-37.0) g/dL RDW 11.7 (11.5-15.5) % Plt Count 324 (150-450) k/uL MPV 7.3 Neutrophils % 66 % Lymphocytes % 21 % Monocytes % 5 % Eosinophils % 5 % Basophils % 2 % Neutrophils # 4.7 (1.3-7.7) k/uL Lymphocytes # 1.5 (1.0-4.8) k/uL Monocytes # 0.3 (0-1.0) k/uL Eosinophils # 0.3 (0-0.7) k/uL Basophils # 0.2 (0-0.2) k/uL PT 10.4 (9.0-12.0) sec INR 1.0 (<1.2) APTT 24.4 (22.0-30.0) sec Sodium 138 (137-145) mmol/L Potassium 4.8 (3.5-5.1) mmol/L Chloride 106 (98-107) mmol/L Carbon Dioxide 24 (22-30) mmol/L Anion Gap 8 mmol/L BUN 12 (7-17) mg/dL Creatinine 0.58 (0.52-1.04) mg/dL Est GFR (CKD-EPI)AfAm >90 (>60 ml/min/1.73 sqM) Est GFR (CKD-EPI)NonAf >90 (>60 ml/min/1.73 sqM) Glucose 120 H (74-99) mg/dL Plasma Lactic Acid Tank (0.7-2.0) mmol/L Calcium 9.2 (8.4-10.2) mg/dL Magnesium 2.1 (1.6-2.3) mg/dL Total Bilirubin 0.6 (0.2-1.3) mg/dL AST 31 (14-36) U/L ALT 25 (4-34) U/L Alkaline Phosphatase 86 (38-126) U/L Troponin I (0.000-0.034) ng/mL NT-Pro-B Natriuret Pep pg/mL Total Protein 7.3 (6.3-8.2) g/dL Albumin 4.6 (3.5-5.0) g/dL Coronavirus (PCR) (Not Detectd) 09/04/20 09/04/20 09/04/20 Range/Units 19:46 19:46 19:46 WBC (3.8-10.6) k/uL RBC (3.80-5.40) m/uL Hgb (11.4-16.0) gm/dL Hct (34.0-46.0) % MCV (80.0-100.0) fL MCH (25.0-35.0) pg MCHC (31.0-37.0) g/dL RDW (11.5-15.5) % Plt Count (150-450) k/uL MPV Neutrophils % % Lymphocytes % % Monocytes % % Eosinophils % % Basophils % % Neutrophils # (1.3-7.7) k/uL Lymphocytes # (1.0-4.8) k/uL Monocytes # (0-1.0) k/uL Eosinophils # (0-0.7) k/uL Basophils # (0-0.2) k/uL PT (9.0-12.0) sec INR (<1.2) APTT (22.0-30.0) sec Sodium (137-145) mmol/L Potassium (3.5-5.1) mmol/L Chloride (98-107) mmol/L Carbon Dioxide (22-30) mmol/L Anion Gap mmol/L BUN (7-17) mg/dL Creatinine (0.52-1.04) mg/dL Est GFR (CKD-EPI)AfAm (>60 ml/min/1.73 sqM) Est GFR (CKD-EPI)NonAf (>60 ml/min/1.73 sqM) Glucose (74-99) mg/dL Plasma Lactic Acid Tank 1.3 (0.7-2.0) mmol/L Calcium (8.4-10.2) mg/dL Magnesium (1.6-2.3) mg/dL Total Bilirubin (0.2-1.3) mg/dL AST (14-36) U/L ALT (4-34) U/L Alkaline Phosphatase (38-126) U/L Troponin I <0.012 (0.000-0.034) ng/mL NT-Pro-B Natriuret Pep 132 pg/mL Total Protein (6.3-8.2) g/dL Albumin (3.5-5.0) g/dL Coronavirus (PCR) (Not Detectd) 09/04/20 Range/Units 19:46 WBC (3.8-10.6) k/uL RBC (3.80-5.40) m/uL Hgb (11.4-16.0) gm/dL Hct (34.0-46.0) % MCV (80.0-100.0) fL MCH (25.0-35.0) pg MCHC (31.0-37.0) g/dL RDW (11.5-15.5) % Plt Count (150-450) k/uL MPV Neutrophils % % Lymphocytes % % Monocytes % % Eosinophils % % Basophils % % Neutrophils # (1.3-7.7) k/uL Lymphocytes # (1.0-4.8) k/uL Monocytes # (0-1.0) k/uL Eosinophils # (0-0.7) k/uL Basophils # (0-0.2) k/uL PT (9.0-12.0) sec INR (<1.2) APTT (22.0-30.0) sec Sodium (137-145) mmol/L Potassium (3.5-5.1) mmol/L Chloride (98-107) mmol/L Carbon Dioxide (22-30) mmol/L Anion Gap mmol/L BUN (7-17) mg/dL Creatinine (0.52-1.04) mg/dL Est GFR (CKD-EPI)AfAm (>60 ml/min/1.73 sqM) Est GFR (CKD-EPI)NonAf (>60 ml/min/1.73 sqM) Glucose (74-99) mg/dL Plasma Lactic Acid Tank (0.7-2.0) mmol/L Calcium (8.4-10.2) mg/dL Magnesium (1.6-2.3) mg/dL Total Bilirubin (0.2-1.3) mg/dL AST (14-36) U/L ALT (4-34) U/L Alkaline Phosphatase (38-126) U/L Troponin I (0.000-0.034) ng/mL NT-Pro-B Natriuret Pep pg/mL Total Protein (6.3-8.2) g/dL Albumin (3.5-5.0) g/dL Coronavirus (PCR) Not Detected (Not Detectd) Disposition Clinical Impression: Acute respiratory failure, Bronchospasm, Hypertensive crisis, Hypoxia, COPD exacerbation, Tachypnea Disposition: ADMITTED IP TO THIS HOSP Condition: Fair Is patient prescribed a controlled substance at d/c from ED?: No Time of Disposition: 21:06 Decision Date: 09/04/20 Decision Time: 21:07
[2020-09-04 19:58] LABS: Basophils # (A) 0.2 k/uL (0-0.2); Basophils % (A) 2 %; Eosinophils # (A) 0.3 k/uL (0-0.7); Eosinophils % (A) 5 %; HCT 49.6 % (34.0-46.0); HGB 16.7 gm/dL (11.4-16.0); Lymphocytes # (A) 1.5 k/uL (1.0-4.8); Lymphocytes % (A) 21 %; MCH 33.3 pg (25.0-35.0); MCHC 33.7 g/dL (31.0-37.0); MCV 98.9 fL (80.0-100.0); Mean Platelet Volume 7.3; Monocytes # (A) 0.3 k/uL (0-1.0); Monocytes % (A) 5 %; Neutrophils # (A) 4.7 k/uL (1.3-7.7); Neutrophils % (A) 66 %; Platelet Count 324 k/uL (150-450); RBC 5.02 m/uL (3.80-5.40); RDW 11.7 % (11.5-15.5); WBC 7.1 k/uL (3.8-10.6)
--- NOTE | 2020-09-04 20:04 | XR ---
EXAMINATION TYPE: XR chest 1V portable DATE OF EXAM: 09/04/2020 COMPARISON: 10/10/2018. HISTORY: Shortness of breath. TECHNIQUE: Single frontal view of the chest is obtained. FINDINGS: There is no focal air space opacity, pleural effusion, or pneumothorax seen. Stable backg round of COPD. The cardiac silhouette size is within normal limits. The osseous structures are inta ct. IMPRESSION: No acute process. COPD.
[2020-09-04 20:07] LABS: ALT 25 U/L (4-34); AST 31 U/L (14-36); African American GFR (CKD) >90 (>60 ml/min/1.73 sqM); Albumin 4.6 g/dL (3.5-5.0); Alkaline Phosphatase 86 U/L (38-126); Anion Gap 8 mmol/L; Blood Urea Nitrogen 12 mg/dL (7-17); Calcium 9.2 mg/dL (8.4-10.2); Carbon Dioxide 24 mmol/L (22-30); Chloride 106 mmol/L (98-107); Glucose 120 mg/dL (74-99); Magnesium 2.1 mg/dL (1.6-2.3); Non-African American GFR(CKD) >90 (>60 ml/min/1.73 sqM); Potassium 4.8 mmol/L (3.5-5.1); Sodium 138 mmol/L (137-145); Total Bilirubin 0.6 mg/dL (0.2-1.3); Total Protein 7.3 g/dL (6.3-8.2)
[2020-09-04 20:11] LABS: Partial Thromboplastin Time 24.4 sec (22.0-30.0); Prothrombin Time 10.4 sec (9.0-12.0)
[2020-09-04] MEDS ORDERED: ALBUTEROL NEBULIZED 2.5 MG/3 ML INHALATION STA (20:48)
[2020-09-04] MEDS ORDERED: AZITHROMYCIN 500 MG in SODIUM CHLORIDE 0.9% 250 ML IVPB STA (21:03)
[2020-09-04] MEDS ORDERED: IPRATROPIUM-ALBUTEROL 3 ML NEB INHALATION PRN (21:08)
[2020-09-04] MEDS ORDERED: ALBUTEROL NEBULIZED 2.5 MG/3 ML INHALATION PRN (21:08)
--- NOTE | 2020-09-04 21:08 | ED ---
Medical Decision Making - Medical Decision Making The EKG is reviewed and shows a normal sinus rhythm at a rate of 98. There is no acute ST-T wave changes noted. There is no evidence of ST elevation. The IA intervals 156, QRS duration is 86, and the QTc interval is 457. - Lab Data Result diagrams: 09/04/20 19:46 09/04/20 19:46 Lab Results 09/04/20 09/04/20 09/04/20 Range/Units 19:46 19:46 19:46 WBC 7.1 (3.8-10.6) k/uL RBC 5.02 (3.80-5.40) m/uL Hgb 16.7 H (11.4-16.0) gm/dL Hct 49.6 H (34.0-46.0) % MCV 98.9 (80.0-100.0) fL MCH 33.3 (25.0-35.0) pg MCHC 33.7 (31.0-37.0) g/dL RDW 11.7 (11.5-15.5) % Plt Count 324 (150-450) k/uL MPV 7.3 Neutrophils % 66 % Lymphocytes % 21 % Monocytes % 5 % Eosinophils % 5 % Basophils % 2 % Neutrophils # 4.7 (1.3-7.7) k/uL Lymphocytes # 1.5 (1.0-4.8) k/uL Monocytes # 0.3 (0-1.0) k/uL Eosinophils # 0.3 (0-0.7) k/uL Basophils # 0.2 (0-0.2) k/uL PT 10.4 (9.0-12.0) sec INR 1.0 (<1.2) APTT 24.4 (22.0-30.0) sec Sodium 138 (137-145) mmol/L Potassium 4.8 (3.5-5.1) mmol/L Chloride 106 (98-107) mmol/L Carbon Dioxide 24 (22-30) mmol/L Anion Gap 8 mmol/L BUN 12 (7-17) mg/dL Creatinine 0.58 (0.52-1.04) mg/dL Est GFR (CKD-EPI)AfAm >90 (>60 ml/min/1.73 sqM) Est GFR (CKD-EPI)NonAf >90 (>60 ml/min/1.73 sqM) Glucose 120 H (74-99) mg/dL Plasma Lactic Acid Tank (0.7-2.0) mmol/L Calcium 9.2 (8.4-10.2) mg/dL Magnesium 2.1 (1.6-2.3) mg/dL Total Bilirubin 0.6 (0.2-1.3) mg/dL AST 31 (14-36) U/L ALT 25 (4-34) U/L Alkaline Phosphatase 86 (38-126) U/L Troponin I (0.000-0.034) ng/mL NT-Pro-B Natriuret Pep pg/mL Total Protein 7.3 (6.3-8.2) g/dL Albumin 4.6 (3.5-5.0) g/dL Coronavirus (PCR) (Not Detectd) 09/04/20 09/04/20 09/04/20 Range/Units 19:46 19:46 19:46 WBC (3.8-10.6) k/uL RBC (3.80-5.40) m/uL Hgb (11.4-16.0) gm/dL Hct (34.0-46.0) % MCV (80.0-100.0) fL MCH (25.0-35.0) pg MCHC (31.0-37.0) g/dL RDW (11.5-15.5) % Plt Count (150-450) k/uL MPV Neutrophils % % Lymphocytes % % Monocytes % % Eosinophils % % Basophils % % Neutrophils # (1.3-7.7) k/uL Lymphocytes # (1.0-4.8) k/uL Monocytes # (0-1.0) k/uL Eosinophils # (0-0.7) k/uL Basophils # (0-0.2) k/uL PT (9.0-12.0) sec INR (<1.2) APTT (22.0-30.0) sec Sodium (137-145) mmol/L Potassium (3.5-5.1) mmol/L Chloride (98-107) mmol/L Carbon Dioxide (22-30) mmol/L Anion Gap mmol/L BUN (7-17) mg/dL Creatinine (0.52-1.04) mg/dL Est GFR (CKD-EPI)AfAm (>60 ml/min/1.73 sqM) Est GFR (CKD-EPI)NonAf (>60 ml/min/1.73 sqM) Glucose (74-99) mg/dL Plasma Lactic Acid Tank 1.3 (0.7-2.0) mmol/L Calcium (8.4-10.2) mg/dL Magnesium (1.6-2.3) mg/dL Total Bilirubin (0.2-1.3) mg/dL AST (14-36) U/L ALT (4-34) U/L Alkaline Phosphatase (38-126) U/L Troponin I <0.012 (0.000-0.034) ng/mL NT-Pro-B Natriuret Pep 132 pg/mL Total Protein (6.3-8.2) g/dL Albumin (3.5-5.0) g/dL Coronavirus (PCR) (Not Detectd) 09/04/20 Range/Units 19:46 WBC (3.8-10.6) k/uL RBC (3.80-5.40) m/uL Hgb (11.4-16.0) gm/dL Hct (34.0-46.0) % MCV (80.0-100.0) fL MCH (25.0-35.0) pg MCHC (31.0-37.0) g/dL RDW (11.5-15.5) % Plt Count (150-450) k/uL MPV Neutrophils % % Lymphocytes % % Monocytes % % Eosinophils % % Basophils % % Neutrophils # (1.3-7.7) k/uL Lymphocytes # (1.0-4.8) k/uL Monocytes # (0-1.0) k/uL Eosinophils # (0-0.7) k/uL Basophils # (0-0.2) k/uL PT (9.0-12.0) sec INR (<1.2) APTT (22.0-30.0) sec Sodium (137-145) mmol/L Potassium (3.5-5.1) mmol/L Chloride (98-107) mmol/L Carbon Dioxide (22-30) mmol/L Anion Gap mmol/L BUN (7-17) mg/dL Creatinine (0.52-1.04) mg/dL Est GFR (CKD-EPI)AfAm (>60 ml/min/1.73 sqM) Est GFR (CKD-EPI)NonAf (>60 ml/min/1.73 sqM) Glucose (74-99) mg/dL Plasma Lactic Acid Tank (0.7-2.0) mmol/L Calcium (8.4-10.2) mg/dL Magnesium (1.6-2.3) mg/dL Total Bilirubin (0.2-1.3) mg/dL AST (14-36) U/L ALT (4-34) U/L Alkaline Phosphatase (38-126) U/L Troponin I (0.000-0.034) ng/mL NT-Pro-B Natriuret Pep pg/mL Total Protein (6.3-8.2) g/dL Albumin (3.5-5.0) g/dL Coronavirus (PCR) Not Detected (Not Detectd) Disposition Clinical Impression: Acute respiratory failure, Bronchospasm, Hypertensive crisis, Hypoxia, COPD exacerbation, Tachypnea Disposition: ADMITTED IP TO THIS HOSP Condition: Fair Referrals: Kevin Hernandez MD [Primary Care Provider] - 1-2 days
[2020-09-04] MEDS: methylPREDNISolone SOD SUCCI 125 MG/2 ML VIAL IV SCH (23:43)
[2020-09-05 06:11] LABS: Glucose,Whole Blood 125 mg/dL (75-99)
[2020-09-05] MEDS: methylPREDNISolone SOD SUCCI 125 MG/2 ML VIAL IV SCH ×3 (06:47→17:15)
[2020-09-05] MEDS: PANTOPRAZOLE 40 MG TABLET PO SCH (06:47)
[2020-09-05] MEDS ORDERED: BUDESONIDE 0.5 MG/2 ML NEBU INHALATION SCH (08:00)
[2020-09-05] MEDS: ASPIRIN 81 MG PO SCH (08:56)
[2020-09-05] MEDS: ENOXAPARIN 40 MG/0.4 ML SYRINGE SQ SCH (08:56)
[2020-09-05] MEDS: buPROPion SR 150 MG TABLET.ER PO SCH ×2 (08:56→20:48)
[2020-09-05] MEDS: lisinopriL 5 MG TAB PO SCH (08:56)
[2020-09-05] MEDS ORDERED: NON FORMULARY DRUG (Omega-3 Fatty Acids/Fish Oil [Fish Oil 1,000 Mg Softgel] 1 EACH Capsul PO SCH (09:00)
[2020-09-05] MEDS ORDERED: NON FORMULARY DRUG (Vitamin B Complex [Vitamin B Complex] 1 EACH Capsule) PO SCH (09:00)
[2020-09-05] MEDS ORDERED: ERGOCALCIFEROL 50,000 UNIT CAP PO SCH (09:00)
--- NOTE | 2020-09-05 11:28 | P.CNPUL ---
History of Present Illness Consult date: 09/05/20 Requesting physician: Kevin Hernandez Reason for consult: dyspnea, cough, COPD, hypoxemia Chief complaint: Shortness of breath History of present illness: 70-year-old female with a history of COPD, who presents to the emergency department with 3-4 days of worsening and progressive shortness of breath. The patient recently started smoking again. She's been smoking heavily. She states that she has chest congestion, dry cough, shortness of breath, chest tightness, and wheezing. I have never seen this patient but I have seen her in the past. She denies any fever or chills. She denies any nausea, vomiting, diarrhea, or abdominal pain. She denies all genitourinary complaints. She was brought into the emergency room in extremist by EMS. In route, they placed her on a nonrebreather mask, and gave her some Solu-Medrol. They also gave her a breathing treatment. The patient has smoked for many years, but quit smoking a number of years back but then more recently because of boredom, she started smoking again. It appears that the only medication she takes for her lung disease is on albuterol inhaler. Review of Systems REVIEW OF SYSTEMS: CONSTITUTIONAL: [Negative.] NEUROLOGIC: [ Negative.] HEENT: [ Negative.] CARDIAC: [Negative.] PULMONARY: Shortness of breath, chest tightness, cough, wheezing, minimal phlegm production. GI: [Negative.] : [Negative.] RHEUMATOLOGIC: [ Negative.] IMMUNOLOGIC: [ Negative.] ENDOCRINE: [Negative. ] DERMATOLOGIC: [Negative.] Past Medical History Past Medical History: COPD, Hypertension, Osteoarthritis (OA), Pneumonia Additional Past Medical History / Comment(s): hx. colon polyps History of Any Multi-Drug Resistant Organisms: None Reported Past Surgical History: Tonsillectomy Additional Past Surgical History / Comment(s): catarat surg. Past Anesthesia/Blood Transfusion Reactions: No Reported Reaction Past Psychological History: No Psychological Hx Reported Smoking Status: Former smoker Past Alcohol Use History: Occasional Additional Past Alcohol Use History / Comment(s): Patient was a smoker one pack per day for more than 30 years and quit approximately 3 weeks ago. No marijuana or illicit drug use. She lives at home with her . She does not have any nebulizer, CPAP or ambulatory devices at home. She recently retired from [employer] May 2018. Past Drug Use History: None Reported - Past Family History Mother Family Medical History: No Reported History Additional Family Medical History / Comment(s): Mother from Alzheimer's dementia. Father Additional Family Medical History / Comment(s): Father from coronary artery disease. Sister(s) Additional Family Medical History / Comment(s): Patient has 2 sisters with no major medical problems. Patient does not have any brothers. Patient has one son with no major medical problems. Medications and Allergies Home Medications Medication Instructions Recorded Confirmed Type buPROPion HCL [Wellbutrin SR] 150 mg PO BID 09/06/18 09/04/20 History lisinopriL [Zestril] 5 mg PO DAILY #30 tab 09/08/18 09/04/20 Rx Albuterol Sulfate [Ventolin HFA] 1 - 2 puff INHALATION RT-Q6H PRN 09/04/20 09/04/20 History Aspirin EC [Ecotrin Low Dose] 81 mg PO DAILY 09/04/20 09/04/20 History Ergocalciferol [Vitamin D2] 50,000 unit PO TU 09/04/20 09/04/20 History [place]-3 Fatty Acids/Fish Oil [Fish 1 cap PO DAILY 09/04/20 09/04/20 History Oil 1,000 mg Softgel] Vitamin B Complex 1 cap PO DAILY 09/04/20 09/04/20 History predniSONE 5 mg PO DAILY 09/04/20 09/04/20 History Allergies Allergy/AdvReac Type Severity Reaction Status Date / Time Penicillins Allergy Rash/Hives Verified 09/04/20 20:36 Sulfa (Sulfonamide Allergy tongue Verified 09/04/20 20:36 Antibiotics) swelling Physical Exam Osteopathic Statement: *. No significant issues noted on an osteopathic structural exam other than those noted in the History and Physical/Consult. Vitals: Vital Signs Temp Pulse Pulse Resp BP BP Pulse Ox 09/05/20 08:19 76 20 09/05/20 08:00 97.5 F L 95 20 140/73 97 09/05/20 07:57 73 20 95 09/05/20 04:00 90 21 110/70 94 L 09/05/20 02:00 94 20 09/05/20 01:17 97 09/04/20 23:36 94 24 09/04/20 23:32 97.8 F 94 24 129/72 94 L 09/04/20 21:58 97.5 F L 100 23 180/128 96 09/04/20 21:44 97.6 F 104 H 20 113/72 93 L 09/04/20 21:20 100 09/04/20 21:06 100 09/04/20 19:46 105 H 23 96 09/04/20 19:43 106 H 09/04/20 19:26 106 H 09/04/20 19:22 30 H 09/04/20 19:16 97.5 F L 93 30 H 180/128 95 Intake and Output 09/04/20 09/05/20 09/05/20 22:59 06:59 14:59 Output Total 240 200 Balance -240 -200 Output: Urine 240 200 Other: # Voids 2 Weight 68.039 kg 74 kg No acute distress, oriented 3. Currently on nasal oxygen at 3 L. HEENT examination is grossly unremarkable. Mucous membranes are moist. No oral lesions. Neck supple. Full range of motion. No adenopathy thyromegaly or neck vein distention. Cardiovascular examination reveals regular rhythm rate. S1-S2 normal. No S3 or S4. No discernible murmur noted. Mild tachycardia. Lungs reveal coarse bilateral expiratory wheezes and rhonchi. Breath sounds equal bilaterally. There is prolongation on forced maneuver. No crackles. Adventitious lung sounds are more prominent on forced maneuver. Abdomen soft bowel sounds are heard. No masses or tenderness. Extremities are intact. No cyanosis clubbing or edema. Skin is without rash or lesion. Neurologic examination is brief but nonfocal. Results - Laboratory Findings CBC and BMP: 09/04/20 19:46 09/04/20 19:46 PT/INR, D-dimer PT 10.4 sec (9.0-12.0) 09/04/20 19:46 INR 1.0 (<1.2) 09/04/20 19:46 Abnormal lab findings: Abnormal Labs 09/04/20 09/04/20 09/05/20 19:46 19:46 06:09 Hgb 16.7 H Hct 49.6 H Glucose 120 H POC Glucose (mg/dL) 125 H - Diagnostic Findings Chest x-ray: image reviewed CT scan - chest: image reviewed Assessment and Plan Assessment: Acute hypoxemic respiratory failure secondary to COPD exacerbation. History of essential hypertension. Osteoarthritis. History of pneumonia. Recent resumption of tobacco use. Plan: Plan dated 09/05/2020. The patient will be placed on albuterol sulfate and ipratropium bromide updrafts, 4 times a day and when necessary. In addition, we provide her with Pulmicort 1 mg and Perforomist 20 g, twice a day. In addition, we give her Solu-Medrol 60 mg IV push, every 6 hours, a nicotine patch, and Augmentin 875 mg twice a day. I told her it was important for her to stop smoking once and for all. Finally, when she is discharged from the hospital, we will see her in the office for a 6 minute walk distance, and a complete pulmonary function test. Additional recommendations and suggestions are forthcoming. Time with Patient: Greater than 30
[2020-09-05] MEDS: IPRATROPIUM-ALBUTEROL 3 ML NEB INHALATION SCH ×4 (11:31→23:30)
[2020-09-05 11:34] LABS: Glucose,Whole Blood 111 mg/dL (75-99)
--- NOTE | 2020-09-05 12:17 | P.HPIM ---
History of Present Illness H&P Date: 09/05/20 Chief Complaint: laura HISTORY OF PRESENT ILLNESS This is a 70-year-old female patient of Dr. Hernandez with past medical history of COPD, tobacco use and dependence, daily alcohol use. Patient gives history that she has had increasing shortness of breath for the past 3-4 days. She contacted the office and was sent a prescription for prednisone and also for Pulmicort but the pharmacy did not have Pulmicort available. Patient complains of cough and shortness of breath as well as wheezing. She denies fevers. Patient has inhalers at home but no nebulizer and, no oxygen, no CPAP. Patient came into [facility] emergency center for evaluation. She was found to be afebrile, heart rate 93, respiratory rate 30, blood pressure 180/128, pulse ox 95% on 15 L nonrebreather. COVID-19 testing negative. WBC 7.1, hemoglobin 16.7, platelet count 324. Blood sugar 120. Troponin negative. ProBNP 132. Electrolytes and renal function normal. Liver function tests normal. Chest x-ray shows no acute process. COPD. Patient admitted to the Medr floor and consult with pulmonary medicine. REVIEW OF SYSTEMS Constitutional: No fever, no chills, no night sweats. No weight change. No weakness, fatigue or lethargy. No daytime sleepiness. EENT: No headache. No blurred vision or double vision, no loss of vision. No loss of Hearing, no ringing in the ears, no dizziness. No nasal drainage or con gestion. No epistaxis. No sore throat. Lungs: Reports shortness of breath, cough, no sputum production. Reports wheezing. Cardiovascular: No chest pain, no lower extremity edema. No palpitations. No paroxysmal nocturnal dyspnea. No orthopnea. No lightheadedness or dizziness. No syncopal episodes. Abdominal: No abdominal pain. No nausea, vomiting. No diarrhea. No constipation. No bloody or tarry stools. No loss of appetite. Genitourinary: No dysuria, increased frequency, urgency. No urinary retention. Musculoskeletal: No myalgias. No muscle weakness, no gait dysfunction, no frequ ent falls. No back pain. No neck pain. Integumentary: No wounds, no lesions. No rash or pruritus. No unusual bruising. No change in hair or nails. Neurologic: No aphasia. No facial droop. No change in mentation. No head injury. No headache. No paralysis. No paresthesia. Psychiatric: No depression. No anxiety. No mood swings. Endocrine: No abnormal blood sugars. No weight change. No excessive sweating or thirst. No cold intolerance. SOCIAL HISTORY Patient was a smoker of greater than 1 pack per day for 30 years and quit in 2018 for brief period. She has smoked on and off and recently picked up in AprilMay 2020. Patient drinks 2 beers every day. She denies having any withdrawal symptoms or seizure activity from this. She lives at home with h er . She does not have a nebulizer. No CPAP. No oxygen. She is retired from [employer] and May 2018. FAMILY HISTORY Mother at age 84 from Alzheimer's dementia. Father at age 70 from a myocardial infarction. Patient has 2 sisters one has passed from diabetes, occasions. One is living with no major medical problems. Patient does not have any brothers. She has one son with no major medical problems. PHYSICAL EXAMINATION Gen: This is a 70-year-old female. She is resting in bed and appears to be comfortable. No acute respiratory distress noted. HEENT: Head is atraumatic, normocephalic. Pupils equal, round. Sclerae is anicteric. NECK: Supple. No JVD. No lymphadenopathy. No thyromegaly. LUNGS: Bilateral expiratory wheeze and rhonchiClear to auscultation. No wheezes or rhonchi. No intercostal retractions. HEART: Regular rate and rhythm. No murmur. ABDOMEN: Soft. Bowel sounds are present. No masses. No tenderness. EXTREMITIES: No pedal edema. No calf tenderness. NEUROLOGICAL: Patient is awake, alert and oriented x3. Cranial nerves 2 through 12 are grossly intact. ASSESSMENT AND PLAN 1. Acute hypoxic respiratory failure secondary to COPD exacerbation. Consult with pulmonary medicine. Continue DuoNeb treatments 4 times daily and as needed, Pulmicort 1 mg twice daily, Perforomist twice daily, Solu-Medrol 60 mg IV every 6 hours, Augmentin 875 mg twice daily. 2. Tobacco use and dependence. Smoking cessation. Nicotine patch started. 3. Daily alcohol use. Monitor for DTs. 4. GI prophylaxis. Protonix. 5. DVT prophylaxis. Lovenox subcu. Patient will be admitted to the hospital for a minimum of 2 night stay. DISCHARGE PLAN Home. Impression and plan of care have been directed as dictated by the signing ph ysician. Yanira Gilliland nurse practitioner acting as scribe for signing physician. Past Medical History Past Medical History: COPD, Hypertension, Osteoarthritis (OA), Pneumonia Additional Past Medical History / Comment(s): hx. colon polyps History of Any Multi-Drug Resistant Organisms: None Reported Past Surgical History: Tonsillectomy Additional Past Surgical History / Comment(s): catarat surg. Past Anesthesia/Blood Transfusion Reactions: No Reported Reaction Past Psychological History: No Psychological Hx Reported Smoking Status: Former smoker Past Alcohol Use History: Occasional Additional Past Alcohol Use History / Comment(s): Patient was a smoker one pack per day for more than 30 years and quit approximately 3 weeks ago. No marijuana or illicit drug use. She lives at home with her . She does not have any nebulizer, CPAP or ambulatory devices at home. She recently retired from [employer] May 2018. Past Drug Use History: None Reported - Past Family History Mother Family Medical History: No Reported History Additional Family Medical History / Comment(s): Mother from Alzheimer's dementia. Father Additional Family Medical History / Comment(s): Father from coronary artery disease. Sister(s) Additional Family Medical History / Comment(s): Patient has 2 sisters with no major medical problems. Patient does not have any brothers. Patient has one son with no major medical problems. Medications and Allergies Home Medications Medication Instructions Recorded Confirmed Type buPROPion HCL [Wellbutrin SR] 150 mg PO BID 09/06/18 09/04/20 History lisinopriL [Zestril] 5 mg PO DAILY #30 tab 09/08/18 09/04/20 Rx Albuterol Sulfate [Ventolin HFA] 1 - 2 puff INHALATION RT-Q6H PRN 09/04/20 09/04/20 History Aspirin EC [Ecotrin Low Dose] 81 mg PO DAILY 09/04/20 09/04/20 History Ergocalciferol [Vitamin D2] 50,000 unit PO TU 09/04/20 09/04/20 History [place]-3 Fatty Acids/Fish Oil [Fish 1 cap PO DAILY 09/04/20 09/04/20 History Oil 1,000 mg Softgel] Vitamin B Complex 1 cap PO DAILY 09/04/20 09/04/20 History predniSONE 5 mg PO DAILY 09/04/20 09/04/20 History Allergies Allergy/AdvReac Type Severity Reaction Status Date / Time Penicillins Allergy Rash/Hives Verified 09/04/20 20:36 Sulfa (Sulfonamide Allergy tongue Verified 09/04/20 20:36 Antibiotics) swelling Physical Exam Vitals: Vital Signs Temp Pulse Pulse Resp BP BP Pulse Ox 09/05/20 08:19 76 20 09/05/20 08:00 97.5 F L 95 20 140/73 97 09/05/20 07:57 73 20 95 09/05/20 04:00 90 21 110/70 94 L 09/05/20 02:00 94 20 09/05/20 01:17 97 09/04/20 23:36 94 24 09/04/20 23:32 97.8 F 94 24 129/72 94 L 09/04/20 21:58 97.5 F L 100 23 180/128 96 09/04/20 21:44 97.6 F 104 H 20 113/72 93 L 09/04/20 21:20 100 09/04/20 21:06 100 09/04/20 19:46 105 H 23 96 09/04/20 19:43 106 H 09/04/20 19:26 106 H 09/04/20 19:22 30 H 09/04/20 19:16 97.5 F L 93 30 H 180/128 95 Intake and Output 09/04/20 09/05/20 09/05/20 22:59 06:59 14:59 Output Total 240 Balance -240 Output: Urine 240 Other: # Voids 2 Weight 68.039 kg 74 kg Results CBC & Chem 7: 09/04/20 19:46 09/04/20 19:46 Labs: Abnormal Lab Results - Last 24 Hours (Table) 09/04/20 09/04/20 09/05/20 Range/Units 19:46 19:46 06:09 Hgb 16.7 H (11.4-16.0) gm/dL Hct 49.6 H (34.0-46.0) % Glucose 120 H (74-99) mg/dL POC Glucose (mg/dL) 125 H (75-99) mg/dL Thrombosis Risk Factor Assmnt - Choose All That Apply Each Factor Represents 1 point: Abnormal pulmonary function (COPD), Swollen legs (current) Other Risk Factors: Yes Each Risk Factor Represents 2 Points: Age 61-74 years Other congenital or acquired thrombophilia - If yes, enter type in comment: No Thrombosis Risk Factor Assessment Total Risk Factor Score: 4 Thrombosis Risk Factor Assessment Level: Moderate Risk
[2020-09-05] MEDS: LEVOFLOXACIN 500 MG TAB PO SCH (12:22)
[2020-09-05] MEDS: INSULIN ASPART (NovoLOG) 100 UNIT/ML VIAL SQ SCH ×3 (13:50→20:51)
[2020-09-05 16:41] LABS: Glucose,Whole Blood 118 mg/dL (75-99)
[2020-09-05] MEDS: BUDESONIDE 0.5 MG/2 ML NEBU INHALATION SCH (19:24)
[2020-09-05] MEDS: FORMOTEROL FUMARATE 20 MCG/2 ML NEBU INHALATION SCH (19:37)
[2020-09-05 20:27] LABS: Glucose,Whole Blood 144 mg/dL (75-99)
[2020-09-06] MEDS: methylPREDNISolone SOD SUCCI 125 MG/2 ML VIAL IV SCH ×2 (00:31→06:05)
[2020-09-06] MEDS: IPRATROPIUM-ALBUTEROL 3 ML NEB INHALATION SCH ×6 (03:06→23:35)
[2020-09-06] MEDS: PANTOPRAZOLE 40 MG TABLET PO SCH (06:05)
[2020-09-06 06:10] LABS: Glucose,Whole Blood 98 mg/dL (75-99)
[2020-09-06] MEDS: INSULIN ASPART (NovoLOG) 100 UNIT/ML VIAL SQ SCH ×4 (06:15→22:16)
[2020-09-06] MEDS: BUDESONIDE 0.5 MG/2 ML NEBU INHALATION SCH (08:03)
[2020-09-06] MEDS: FORMOTEROL FUMARATE 20 MCG/2 ML NEBU INHALATION SCH ×2 (08:03→19:25)
[2020-09-06] MEDS ORDERED: predniSONE 20 MG TAB PO SCH (09:00)
[2020-09-06] MEDS: ENOXAPARIN 40 MG/0.4 ML SYRINGE SQ SCH (09:16)
[2020-09-06] MEDS: ASPIRIN 81 MG PO SCH (09:16)
[2020-09-06] MEDS: buPROPion SR 150 MG TABLET.ER PO SCH ×2 (09:16→22:16)
[2020-09-06] MEDS: LEVOFLOXACIN 500 MG TAB PO SCH (09:16)
[2020-09-06] MEDS: lisinopriL 5 MG TAB PO SCH (09:16)
--- NOTE | 2020-09-06 11:52 | P.PN ---
Subjective Progress Note Date: 09/06/20 HISTORY OF PRESENT ILLNESS This is a 70-year-old female patient of Dr. Hernandez with past medical history of COPD, tobacco use and dependence, daily alcohol use. Patient gives history that she has had increasing shortness of breath for the past 3-4 days. She contacted the office and was sent a prescription for prednisone and also for Pulmicort but the pharmacy did not have Pulmicort available. Patient complains of cough and shortness of breath as well as wheezing. She denies fevers. Patient has inhalers at home but no nebulizer and, no oxygen, no CPAP. Patient came into [facility] emergency center for evaluation. She was found to be afebrile, heart rate 93, respiratory rate 30, blood pressure 180/128, pulse ox 95% on 15 L nonrebreather. COVID-19 testing negative. WBC 7.1, hemoglobin 16.7, platelet count 324. Blood sugar 120. Troponin negative. ProBNP 132. Electrolytes and renal function normal. Liver function tests normal. Chest x-ray shows no acute process. COPD. Patient admitted to the [facility] floor and consult with pulmonary medicine. 09/06: Patient states that she tried to wear the BiPAP for 3 hours last night and after that she had to remove it because she is complaining of a vice-like feeling on her head and could not sleep. She continues to have cough that is nonproductive. Lungs are less tight from yesterday. We'll plan to transition her to decrease Solu-Medrol today and oral prednisone tomorrow. Patient has been able to reschedule her Covid 19 vaccine was scheduled for . She has been afebrile, heart rate 95, blood pressure 110/64, pulse ox 94% on 3 L. Blood sugar 99-144 REVIEW OF SYSTEMS Constitutional: No fever, no chills, no night sweats. No weight change. No weakness, fatigue or lethargy. No daytime sleepiness. EENT: No headache. No blurred vision or double vision, no loss of vision. No loss of Hearing, no ringing in the ears, no dizziness. No nasal drainage or congestion. No epistaxis. No sore throat. Lungs: Reports shortness of breath, reports cough, no sputum production. Reports wheezing. Cardiovascular: No chest pain, no lower extremity edema. No palpitations. No paroxysmal nocturnal dyspnea. No orthopnea. No lightheadedness or dizziness. No syncopal episodes. Abdominal: No abdominal pain. No nausea, vomiting. No diarrhea. No co nstipation. No bloody or tarry stools. No loss of appetite. Genitourinary: No dysuria, increased frequency, urgency. No urinary retention. Musculoskeletal: No myalgias. No muscle weakness, no gait dysfunction, no frequent falls. No back pain. No neck pain. Integumentary: No wounds, no lesions. No rash or pruritus. No unusual bruising. No change in hair or nails. Neurologic: No aphasia. No facial droop. No change in mentation. No head injury. No headache. No paralysis. No paresthesia. Psychiatric: No depression. No anxiety. No mood swings. Endocrine: No abnormal blood sugars. No weight change. No excessive sweating or thirst. No cold intolerance. PHYSICAL EXAMINATION Gen: This is a 70-year-old female. She is resting in bed and appears to be comfortable. HEENT: Head is atraumatic, normocephalic. Pupils equal, round. Sclerae is anicteric. NECK: Supple. No JVD. No lymphadenopathy. No thyromegaly. LUNGS: Bilateral expiratory wheeze and rhonchi. No intercostal retractions. HEART: Regular rate and rhythm. No murmur. ABDOMEN: Soft. Bowel sounds are present. No masses. No tenderness. EXTREMITIES: No pedal edema. No calf tenderness. NEUROLOGICAL: Patient is awake, alert and oriented x3. Cranial nerves 2 through 12 are grossly intact. ASSESSMENT AND PLAN 1. Acute hypoxic respiratory failure secondary to COPD exacerbation. Consult with pulmonary medicine. Continue DuoNeb treatments 4 times daily and as needed, Pulmicort 1 mg twice daily, Perforomist twice daily, Solu-Medrol decreased to 40 mg IV every 8 hours since her prednisone in the morning, continue Augmentin 875 mg twice daily. 2. Tobacco use and dependence. Smoking cessation. Nicotine patch started. 3. Daily alcohol use. Monitor for DTs. 4. GI prophylaxis. Protonix. 5. DVT prophylaxis. Lovenox subcu. DISCHARGE PLAN Home. Impression and plan of care have been directed as dictated by the signing physician. Yanira Gilliland nurse practitioner acting as scribe for signing physician. Objective - Vital Signs Vital signs: Vital Signs Temp 98.8 F 09/06/20 03:17 Pulse 93 09/06/20 08:24 Resp 20 09/06/20 03:17 BP 110/64 09/06/20 03:17 Pulse Ox 98 09/06/20 08:03 Intake & Output 09/05/20 09/06/20 09/06/20 18:59 06:59 18:59 Intake Total 965 480 540 Output Total 200 Balance 765 480 540 Weight 72 kg Intake: Intake, IV Titration 225 Amount Sodium Chloride 0.9% 1, 225 000 ml @ 75 mls/hr IV . [id number] STA Rx#:[id number] Oral 740 480 540 Output: Urine 200 Other: # Voids 2 - Labs CBC & Chem 7: 09/04/20 19:46 09/04/20 19:46 Labs: Abnormal Lab Results - Last 24 Hours (Table) 09/05/20 09/05/20 09/05/20 Range/Units 11:31 16:39 20:25 POC Glucose (mg/dL) 111 H 118 H 144 H (75-99) mg/dL Microbiology - Last 24 Hours (Table) 09/04/20 19:46 Blood Culture - Preliminary Blood No Growth after 24 hours
[2020-09-06 12:20] LABS: Glucose,Whole Blood 87 mg/dL (75-99)
--- NOTE | 2020-09-06 15:09 | P.PN ---
Subjective Progress Note Date: 09/06/20 Principal diagnosis: Acute hypoxic respiratory failure related to COPD exacerbation 70-year-old female with a history of COPD, who presents to the emergency department with 3-4 days of worsening and progressive shortness of breath. The patient recently started smoking again. She's been smoking heavily. She states that she has chest congestion, dry cough, shortness of breath, chest tightness, and wheezing. I have never seen this patient but I have seen her in the past. She denies any fever or chills. She denies any nausea, vomiting, diarrhea, or abdominal pain. She denies all genitourinary complaints. She was brought into the emergency room in extremist by EMS. In route, they placed her on a nonrebreather mask, and gave her some Solu-Medrol. They also gave her a breathing treatment. The patient has smoked for many years, but quit smoking a number of years back but then more recently because of boredom, she started smoking again. It appears that the only medication she takes for her lung disease is on albuterol inhaler. On 09/06/2020 patient seen in follow-up on selective care unit, she is awake and alert, in no acute distress, her breathing is improving, she is on 3 L of oxygen with pulse ox of 90%, she is doing better, breathing easier, she is able to ambulate and tolerated activity better today, less bronchospastic today, vital signs have been stable, she remains on IV steroids, bronchodilators and empiric antibiotics in the form of Levaquin, no acute events overnight. Objective - Vital Signs Vital signs: Vital Signs Temp 97.6 F 09/06/20 12:00 Pulse 98 09/06/20 12:00 Resp 18 09/06/20 12:00 BP 107/59 09/06/20 08:00 Pulse Ox 96 09/06/20 12:00 Intake & Output 09/05/20 09/06/20 09/06/20 18:59 06:59 18:59 Intake Total 965 480 780 Output Total 200 Balance 765 480 780 Weight 72 kg Intake: Intake, IV Titration 225 Amount Sodium Chloride 0.9% 1, 225 000 ml @ 75 mls/hr IV . [id number] STA Rx#:[id number] Oral 740 480 780 Output: Urine 200 Other: # Voids 2 - Exam GENERAL EXAM: Alert, very pleasant, 70-year-old white female, 3 L of oxygen and pulse ox of 98%, comfortable in no apparent distress. HEAD: Normocephalic/atraumatic. EYES: Normal reaction of pupils, equal size. Conjunctiva pink, sclera white. NOSE: Clear with pink turbinates. THROAT: No erythema or exudates. NECK: No masses, no JVD, no thyroid enlargement, no adenopathy. CHEST: No chest wall deformity. Symmetrical expansion. LUNGS: Equal air entry with scattered wheezes, but patient is less bronchospastic on today's exam CVS: Regular rate and rhythm, normal S1 and S2, no gallops, no murmurs, no rubs ABDOMEN: Soft, nontender. No hepatosplenomegaly, normal bowel sounds, no guarding or rigidity. EXTREMITIES: No clubbing, no edema, no cyanosis, 2+ pulses and upper and lower extremities. MUSCULOSKELETAL: Muscle strength and tone normal. SPINE: No scoliosis or deformity SKIN: No rashes CENTRAL NERVOUS SYSTEM: Alert and oriented -3. No focal deficits, tone is normal in all 4 extremities. PSYCHIATRIC: Alert and oriented -3. Appropriate affect. Intact judgment and insight. - Labs CBC & Chem 7: 09/04/20 19:46 09/04/20 19:46 Labs: Abnormal Lab Results - Last 24 Hours (Table) 09/05/20 09/05/20 Range/Units 16:39 20:25 POC Glucose (mg/dL) 118 H 144 H (75-99) mg/dL Microbiology - Last 24 Hours (Table) 09/04/20 19:46 Blood Culture - Preliminary Blood No Growth after 24 hours Assessment and Plan Plan: Assessment: #1. Acute hypoxemic respiratory failure secondary to COPD exacerbation. #2. History of essential hypertension. #3. Osteoarthritis. #4. History of pneumonia. #5. Recent resumption of tobacco use. Plan: Continue current medical treatment, continue IV steroids, bronchodilators and antibiotics, vital signs have been stable, patient is feeling better, breathing easier, will continue with current medical treatment, continues to improve and tolerated activity better we'll consider discharge home in the next day or 2 I performed a history & physical examination of the patient and discussed their management with my nurse practitioner, Tomeka García. I reviewed the nurse practitioner's note and agree with the documented findings and plan of care. Lung sounds are positive for diffuse wheezes throughout the lung kurtz. The findings and the impression was discussed with the patient. I attest to the documentation by the nurse practitioner. Time with Patient: Less than 30
[2020-09-06] MEDS ORDERED: methylPREDNISolone SOD SUCCI 40 MG/ML 1 ML VIAL IV SCH (16:00)
[2020-09-06 16:36] LABS: Glucose,Whole Blood 97 mg/dL (75-99)
[2020-09-06] MEDS: BUDESONIDE 1 MG/2 ML NEBU INHALATION SCH (19:25)
[2020-09-06 19:55] LABS: Glucose,Whole Blood 131 mg/dL (75-99)
[2020-09-07] MEDS: IPRATROPIUM-ALBUTEROL 3 ML NEB INHALATION SCH ×6 (03:40→23:22)
[2020-09-07 06:05] LABS: Glucose,Whole Blood 91 mg/dL (75-99)
[2020-09-07] MEDS: INSULIN ASPART (NovoLOG) 100 UNIT/ML VIAL SQ SCH ×4 (06:29→21:10)
[2020-09-07] MEDS: PANTOPRAZOLE 40 MG TABLET PO SCH (06:38)
[2020-09-07] MEDS: BUDESONIDE 1 MG/2 ML NEBU INHALATION SCH ×2 (09:20→19:40)
[2020-09-07] MEDS: FORMOTEROL FUMARATE 20 MCG/2 ML NEBU INHALATION SCH ×2 (09:20→19:40)
[2020-09-07] MEDS: lisinopriL 5 MG TAB PO SCH (09:40)
[2020-09-07] MEDS: ENOXAPARIN 40 MG/0.4 ML SYRINGE SQ SCH (09:40)
[2020-09-07] MEDS: ASPIRIN 81 MG PO SCH (09:40)
[2020-09-07] MEDS: predniSONE 20 MG TAB PO SCH (09:41)
[2020-09-07] MEDS: LEVOFLOXACIN 500 MG TAB PO SCH (09:41)
[2020-09-07] MEDS: buPROPion SR 150 MG TABLET.ER PO SCH ×2 (09:41→21:10)
[2020-09-07 11:42] LABS: Glucose,Whole Blood 88 mg/dL (75-99)
--- NOTE | 2020-09-07 13:44 | P.PN ---
Subjective Progress Note Date: 09/07/20 HISTORY OF PRESENT ILLNESS This is a 70-year-old female patient of Dr. Hernandez with past medical history of COPD, tobacco use and dependence, daily alcohol use. Patient gives history that she has had increasing shortness of breath for the past 3-4 days. She contacted the office and was sent a prescription for prednisone and also for Pulmicort but the pharmacy did not have Pulmicort available. Patient complains of cough and shortness of breath as well as wheezing. She denies fevers. Patient has inhalers at home but no nebulizer and, no oxygen, no CPAP. Patient came into [facility] emergency center for evaluation. She was found to be afebrile, heart rate 93, respiratory rate 30, blood pressure 180/128, pulse ox 95% on 15 L nonrebreather. COVID-19 testing negative. WBC 7.1, hemoglobin 16.7, platelet count 324. Blood sugar 120. Troponin negative. ProBNP 132. Electrolytes and renal function normal. Liver function tests normal. Chest x-ray shows no acute process. COPD. Patient admitted to the [facility] floor and consult with pulmonary medicine. 09/06: Patient states that she tried to wear the BiPAP for 3 hours last night and after that she had to remove it because she is complaining of a vice-like feeling on her head and could not sleep. She continues to have cough that is nonproductive. Lungs are less tight from yesterday. We'll plan to transition her to decrease Solu-Medrol today and oral prednisone tomorrow. Patient has been able to reschedule her Covid 19 vaccine was scheduled for . She has been afebrile, heart rate 95, blood pressure 110/64, pulse ox 94% on 3 L. Blood sugar 99-144 09/07: Patient has been transitioned to oral prednisone today. She states she slept well last night. Breathing status is improving. She agrees to stop smoking. She has been afebrile, pulse ox 95-97% on 3 L nasal cannula, heart rate 88. Blood culture no growth. Patient is followed by pulmonary medicine. REVIEW OF SYSTEMS Constitutional: No fever, no chills, no night sweats. No weight change. No weakness, fatigue or lethargy. No daytime sleepiness. EENT: No headache. No blurred vision or double vision, no loss of vision. No loss of Hearing, no ringing in the ears, no dizziness. No nasal drainage or congestion. No epistaxis. No sore throat. Lungs: Reports shortness of breath-improving, reports cough, no sputum production. Reports wheezing. Cardiovascular: No chest pain, no lower extremity edema. No palpitations. No paroxysmal nocturnal dyspnea. No orthopnea. No lightheadedness or dizziness. No syncopal episodes. Abdominal: No abdominal pain. No nausea, vomiting. No diarrhea. No constipation. No bloody or tarry stools. No loss of appetite. Genitourinary: No dysuria, increased frequency, urgency. No urinary retention. Musculoskeletal: No myalgias. No muscle weakness, no gait dysfunction, no frequent falls. No back pain. No neck pain. Integumentary: No wounds, no lesions. No rash or pruritus. No unusual bruising. No change in hair or nails. Neurologic: No aphasia. No facial droop. No change in mentation. No head injury. No headache. No paralysis. No paresthesia. Psychiatric: No depression. No anxiety. No mood swings. Endocrine: No abnormal blood sugars. No weight change. No excessive sweating or thirst. No cold intolerance. PHYSICAL EXAMINATION Gen: This is a 70-year-old female. She is resting in bed and appears to be comfortable. HEENT: Head is atraumatic, normocephalic. Pupils equal, round. Sclerae is anicteric. NECK: Supple. No JVD. No lymphadenopathy. No thyromegaly. LUNGS: Diminished bilaterally. No intercostal retractions. HEART: Regular rate and rhythm. No murmur. ABDOMEN: Soft. Bowel sounds are present. No masses. No tenderness. EXTREMITIES: No pedal edema. No calf tenderness. NEUROLOGICAL: Patient is awake, alert and oriented x3. Cranial nerves 2 through 12 are grossly intact. ASSESSMENT AND PLAN 1. Acute hypoxic respiratory failure secondary to COPD exacerbation. Consult with pulmonary medicine. Continue DuoNeb treatments 4 times daily and as needed, Pulmicort 1 mg twice daily, Perforomist twice daily, Solu-Medrol transitioned to prednisone, continue Augmentin 875 mg twice daily. 2. Tobacco use and dependence. Smoking cessation. Nicotine patch started. 3. Daily alcohol use. Monitor for DTs. 4. GI prophylaxis. Protonix. 5. DVT prophylaxis. Lovenox subcu. DISCHARGE PLAN Home on Friday. Impression and plan of care have been directed as dictated by the signing physician. Yanira Gilliland nurse practitioner acting as scribe for signing physician. Objective - Vital Signs Vital signs: Vital Signs Temp 97.7 F 09/06/20 20:40 Pulse 88 09/07/20 04:00 Resp 18 09/07/20 04:00 BP 111/66 09/07/20 04:00 Pulse Ox 95 09/07/20 04:00 Intake & Output 09/06/20 09/07/20 09/07/20 18:59 06:59 18:59 Intake Total 1020 480 Balance 1020 480 Weight 68.6 kg Intake: Oral 1020 480 Other: # Voids 2 - Labs CBC & Chem 7: 09/04/20 19:46 09/04/20 19:46 Labs: Abnormal Lab Results - Last 24 Hours (Table) 09/06/20 Range/Units 19:50 POC Glucose (mg/dL) 131 H (75-99) mg/dL Microbiology - Last 24 Hours (Table) 09/04/20 19:46 Blood Culture - Preliminary Blood No Growth after 48 hours
--- NOTE | 2020-09-07 15:35 | P.PN ---
Subjective Progress Note Date: 09/07/20 Principal diagnosis: Acute hypoxic respiratory failure secondary to COPD exacerbation This is a 80-year-old white male patient with multiple chronic medical conditions, and a recent hospitalization for COVID19 pneumonia, and sepsis related to pseudomonal pneumonia, in addition to sepsis related to his chronic nonhealing ulcers and wounds of the lower extremities, and sacrum. Patient was treated with IV antibiotics while he was in the hospital, he was discharged to [facility] where he completed his antibiotics with oral ciprofloxacin. His culture data from his previous admission showed a sputum culture positive for pseudomonas aeruginosa on 08/21/2020 and a right foot wound culture positive for MRSA and pseudomonas aeruginosa. Patient was brought back to the emergency depa rtment on 08/26/2020 for evaluation of weakness, patient had a fainting episode while he was being transferred from the bathroom, patient was also febrile on presentation, his chest x-ray showed fibrotic changes, no acute lung disease, no change compared to his most recent chest x-ray from 08/22/2020. Clinically patient denies any chest pain, denies any worsening in terms of his chronic shortness of breath, he does have congestive cough, nonproductive and not much sputum. Yesterday we reconsult infectious disease service and patient was placed back on cefepime by Dr. Perez. His COVID 19 PCR was again positive, urine and blood cultures so far have shown no growth. On today's exam patient is a comfortable, in no acute respiratory distress, his labs have been reviewed, showing white blood cell count of 4.9, hemoglobin is 8.6, his electrolytes are unremarkable for the most part except for CO2 which is at 39, BUN is 36, creatinine 1.05 On 09/06/2020 patient seen in follow-up on selective care unit, he is resting comfortably in bed, breathing comfortably, no significant cough, no compressive chest pain, no hemoptysis, vital signs have been stable, follow-up chest x-ray today shows COPD with increasing localized area of infiltrate in the right upper lobe, chronic interstitial lung disease, pulmonary fibrosis or interstitial pneumonitis. Clinically patient has been stable, no altered mentation, no fever today, his last episode of fever was yesterday with a temp of 102.9F. Urine and blood cultures have been negative. Is currently on Zosyn per ID service recommendations. At that recent wound cultures positive for MRSA and Pseudomonas, and sputum cultures positive for pseudomonas. Clinically patient is improving. Patient is seen today 09/07/2020 follow-up on the selective care unit. She is currently sitting up in bed. Awake and alert in no acute distress. Breathing easier today compared to yesterday. Not quite back to her baseline. Requiring 2 L/m per nasal cannula to maintain O2 saturations in the 90s. She is continuing continued on DuoNeb inhalations, Pulmicort and Perforomist inhalations, converted to oral prednisone today. Antibiotics in the form of Levaquin. Lovenox for DVT prophylaxis. Objective - Vital Signs Vital signs: Vital Signs Temp 97.4 F L 09/07/20 11:39 Pulse 100 09/07/20 11:39 Resp 18 09/07/20 11:39 BP 117/75 09/07/20 11:39 Pulse Ox 97 09/07/20 11:39 Intake & Output 09/06/20 09/07/20 09/07/20 18:59 06:59 18:59 Intake Total 1020 480 960 Balance 1020 480 960 Weight 68.6 kg Intake: Oral 1020 480 960 Other: # Voids 2 1 - Exam GENERAL EXAM: Alert, pleasant 70-year-old female patient, on 2 L nasal cannula comfortable in no apparent distress. HEAD: Normocephalic. EYES: Normal reaction of pupils, equal size. NOSE: Clear with pink turbinates. THROAT: No erythema or exudates. NECK: No masses, no JVD. CHEST: No chest wall deformity. LUNGS: Equal air entry with faint end expiratory wheeze, diminished. CVS: S1 and S2 normal with no audible murmur, regular rhythm. ABDOMEN: No hepatosplenomegaly, normal bowel sounds, no guarding or rigidity. SPINE: No scoliosis or deformity SKIN: No rashes CENTRAL NERVOUS SYSTEM: No focal deficits, tone is normal in all 4 extremities. EXTREMITIES: There is no peripheral edema. No clubbing, no cyanosis. Peripheral pulses are intact. - Labs CBC & Chem 7: 09/04/20 19:46 09/04/20 19:46 Labs: Abnormal Lab Results - Last 24 Hours (Table) 09/06/20 Range/Units 19:50 POC Glucose (mg/dL) 131 H (75-99) mg/dL Microbiology - Last 24 Hours (Table) 09/04/20 19:46 Blood Culture - Preliminary Blood No Growth after 48 hours Assessment and Plan Assessment: 1. Acute hypoxemic respiratory failure secondary to COPD exacerbation. 2. History of essential hypertension. 3. Osteoarthritis. 4. History of pneumonia. 5. Recent resumption of tobacco use. Plan: The patient was seen and evaluated by Dr. Chandra Not quite ready for discharge Continue the current treatment plan Probable discharge in the a.m. We will continue to follow I, the cosigning physician, performed a history & physical examination of the patient. Lungs sounds with faint bilateral end expiratory wheeze, diminished Maintaining good O2 saturations in the 90s on 2 L/m per nasal cannula. I dis cussed the assessment and plan of care with my nurse practitioner, Paloma Garcia. I attest to the above note as dictated by her.
[2020-09-07 16:45] LABS: Glucose,Whole Blood 116 mg/dL (75-99)
[2020-09-07 20:18] LABS: Glucose,Whole Blood 110 mg/dL (75-99)
[2020-09-07 23:27] VITALS: TEMP 97.8
[2020-09-08] MEDS: IPRATROPIUM-ALBUTEROL 3 ML NEB INHALATION SCH ×3 (03:36→20:15)
[2020-09-08 06:30] LABS: Glucose,Whole Blood 81 mg/dL (75-99)
[2020-09-08] MEDS: INSULIN ASPART (NovoLOG) 100 UNIT/ML VIAL SQ SCH (06:38)
[2020-09-08] MEDS: PANTOPRAZOLE 40 MG TABLET PO SCH (06:38)
[2020-09-08] MEDS: BUDESONIDE 1 MG/2 ML NEBU INHALATION SCH (07:55)
[2020-09-08] MEDS: FORMOTEROL FUMARATE 20 MCG/2 ML NEBU INHALATION SCH (07:55)
--- NOTE | 2020-09-08 09:04 | P.DS ---
Providers Date of admission: 09/04/20 21:14 Expected date of discharge: 09/08/20 Attending physician: Kevin Hernandez Consults: 09/04/20 21:08 Consult Physician Routine Consulting Provider: Yonatan Chandra Reason/Comments: copd exac Do you want consulting provider notified?: Yes Primary care physician: Kevin Hernandez [facility] Course: HISTORY OF PRESENT ILLNESS This is a 70-year-old female patient of Dr. Hernandez with past medical history of COPD, tobacco use and dependence, daily alcohol use. Patient gives history that she has had increasing shortness of breath for the past 3-4 days. She contacted the office and was sent a prescription for prednisone and also for Pulmicort but the pharmacy did not have Pulmicort available. Patient complains of cough and shortness of breath as well as wheezing. She denies fevers. Patient has inhalers at home but no nebulizer and, no oxygen, no CPAP. Patient came into [facility] emergency center for evaluation. She was found to be afebrile, heart rate 93, respiratory rate 30, blood pressure 180/128, pulse ox 95% on 15 L nonrebreather. COVID-19 testing negative. WBC 7.1, hemoglobin 16.7, platelet count 324. Blood sugar 120. Troponin negative. ProBNP 132. Electrolytes and renal function normal. Liver function tests normal. Chest x-ray shows no acute process. COPD. Patient admitted to the [facility] floor and consult with pulmonary medicine. 09/06: Patient states that she tried to wear the BiPAP for 3 hours last night and after that she had to remove it because she is complaining of a vice-like feeling on her head and could not sleep. She continues to have cough that is nonproductive. Lungs are less tight from yesterday. We'll plan to transition her to decrease Solu-Medrol today and oral prednisone tomorrow. Patient has been able to reschedule her Covid 19 vaccine was scheduled for . She has been afebrile, heart rate 95, blood pressure 110/64, pulse ox 94% on 3 L. Blood sugar 99-144 09/07: Patient has been transitioned to oral prednisone today. She states she slept well last night. Breathing status is improving. She agrees to stop smoki ng. She has been afebrile, pulse ox 95-97% on 3 L nasal cannula, heart rate 88. Blood culture no growth. Patient is followed by pulmonary medicine. 09/08: Patient states that her breathing status is improved today. She ambulated with staff on room air she dropped to 91%. Patient does not qualify for home oxygen. She has been afebrile, heart rate 80, blood pressure 119/65. Blood sugars running between 81 and 116. Patient is currently on oral prednisone and oral antibiotics. Nebulizer will be ordered for home as patient requires nebulizer with DuoNeb and Pulmicort to manage her COPD exacerbation. She has failed treatment with albuterol inhaler. Patient will be discharged home today in stable condition. ASSESSMENT AND PLAN 1. Acute hypoxic respiratory failure secondary to COPD exacerbation. 2. Tobacco use and dependence. Smoking cessation. 3. Daily alcohol use. DISCHARGE PLAN Home. Impression and plan of care have been directed as dictated by the signing physician. Yanira Gilliland nurse practitioner acting as scribe for signing physician. Patient Condition at Discharge: Good Plan - Discharge Summary Discharge Rx Participant: No New Discharge Prescriptions: New Ipratropium-Albuterol Nebulize [Duoneb 0.5 mg-3 mg/3 ml Soln] 3 ml INHALATION RT-QID #120 dose Levofloxacin [Levaquin] 500 mg PO Q24H #3 tab predniSONE 0 mg PO DIRECTED #30 tab Pantoprazole [Protonix] 40 mg PO AC-BRKFST #30 tablet. Budesonide [Pulmicort] 1 mg INHALATION RT-BID #60 dose Continue buPROPion HCL [Wellbutrin SR] 150 mg PO BID lisinopriL [Zestril] 5 mg PO DAILY #30 tab Aspirin EC [Ecotrin Low Dose] 81 mg PO DAILY Vitamin B Complex 1 cap PO DAILY [place]-3 Fatty Acids/Fish Oil [Fish Oil 1,000 mg Softgel] 1 cap PO DAILY Ergocalciferol [Vitamin D2 (DRISDOL)] 50,000 unit PO TU Albuterol Sulfate [Ventolin HFA] 1 - 2 puff INHALATION RT-Q6H PRN PRN Reason: Shortness Of Breath Discontinued predniSONE 5 mg PO DAILY Discharge Medication List buPROPion HCL [Wellbutrin SR] 150 mg PO BID 09/06/18 [History] lisinopriL [Zestril] 5 mg PO DAILY #30 tab 09/08/18 [Rx] Albuterol Sulfate [Ventolin HFA] 1 - 2 puff INHALATION RT-Q6H PRN 09/04/20 [History] Aspirin EC [Ecotrin Low Dose] 81 mg PO DAILY 09/04/20 [History] Ergocalciferol [Vitamin D2 (DRISDOL)] 50,000 unit PO TU 09/04/20 [History] [place]-3 Fatty Acids/Fish Oil [Fish Oil 1,000 mg Softgel] 1 cap PO DAILY 09/04/20 [History] Vitamin B Complex 1 cap PO DAILY 09/04/20 [History] Budesonide [Pulmicort] 1 mg INHALATION RT-BID #60 dose 09/08/20 [Rx] Ipratropium-Albuterol Nebulize [Duoneb 0.5 mg-3 mg/3 ml Soln] 3 ml INHALATION RT-QID #120 dose 09/08/20 [Rx] Levofloxacin [Levaquin] 500 mg PO Q24H #3 tab 09/08/20 [Rx] Pantoprazole [Protonix] 40 mg PO AC-BRKFST #30 tablet.dr 09/08/20 [Rx] predniSONE 0 mg PO DIRECTED #30 tab 09/08/20 [Rx] Follow up Appointment(s)/Referral(s): Yonatan Chandra DO [Doctor of Osteopathic Medicine] - 1 Week Kevin Hernandez MD [Primary Care Provider] - 1 Week Discharge Disposition: HOME SELF-CARE
[2020-09-08] MEDS: LEVOFLOXACIN 500 MG TAB PO SCH (09:53)
[2020-09-08] MEDS: lisinopriL 5 MG TAB PO SCH (09:53)
[2020-09-08] MEDS: ASPIRIN 81 MG PO SCH (09:53)
[2020-09-08] MEDS: predniSONE 20 MG TAB PO SCH (09:53)
[2020-09-08] MEDS: buPROPion SR 150 MG TABLET.ER PO SCH (09:54)
[2020-09-08] MEDS: ENOXAPARIN 40 MG/0.4 ML SYRINGE SQ SCH (09:54)
[2020-09-08 10:36] VITALS: BP 126/77; PULSE 87; RESP 20
--- NOTE | 2020-09-08 15:39 | P.PN ---
Subjective Progress Note Date: 09/08/20 Principal diagnosis: Acute hypoxic respiratory failure secondary to COPD exacerbation This is a 80-year-old white male patient with multiple chronic medical conditions, and a recent hospitalization for COVID19 pneumonia, and sepsis related to pseudomonal pneumonia, in addition to sepsis related to his chronic nonhealing ulcers and wounds of the lower extremities, and sacrum. Patient was treated with IV antibiotics while he was in the hospital, [facility] he completed his antibiotics with oral ciprofloxacin. His culture data from his previous admission showed a sputum culture positive for pseudomonas aeruginosa on 08/21/2020 and a right foot wound culture positive for MRSA and pseudomonas aeruginosa. Patient was brought back to the emergency depa rtment on 08/26/2020 for evaluation of weakness, patient had a fainting episode while he was being transferred from the bathroom, patient was also febrile on presentation, his chest x-ray showed fibrotic changes, no acute lung disease, no change compared to his most recent chest x-ray from 08/22/2020. Clinically patient denies any chest pain, denies any worsening in terms of his chronic shortness of breath, he does have congestive cough, nonproductive and not much sputum. Yesterday we reconsult infectious disease service and patient was placed back on cefepime by Dr. Perez. His COVID 19 PCR was again positive, urine and blood cultures so far have shown no growth. On today's exam patient is a comfortable, in no acute respiratory distress, his labs have been reviewed, showing white blood cell count of 4.9, hemoglobin is 8.6, his electrolytes are unremarkable for the most part except for CO2 which is at 39, BUN is 36, creatinine 1.05 On 09/06/2020 patient seen in follow-up on selective care unit, he is resting comfortably in bed, breathing comfortably, no significant cough, no compressive chest pain, no hemoptysis, vital signs have been stable, follow-up chest x-ray today shows COPD with increasing localized area of infiltrate in the right upper lobe, chronic interstitial lung disease, pulmonary fibrosis or interstitial pneumonitis. Clinically patient has been stable, no altered mentation, no fever today, his last episode of fever was yesterday with a temp of 102.9F. Urine and blood cultures have been negative. Is currently on Zosyn per ID service recommendations. At that recent wound cultures positive for MRSA and Pseudomonas, and sputum cultures positive for pseudomonas. Clinically patient is improving. Patient is seen today 09/07/2020 follow-up on the selective care unit. She is currently sitting up in bed. Awake and alert in no acute distress. Breathing easier today compared to yesterday. Not quite back to her baseline. Requiring 2 L/m per nasal cannula to maintain O2 saturations in the 90s. She is continuing continued on DuoNeb inhalations, Pulmicort and Perforomist inhalations, converted to oral prednisone today. Antibiotics in the form of Levaquin. Lovenox for DVT prophylaxis. The patient is seen today 09/08/2020 in follow-up on the selective care unit. She is currently sitting up in a chair at the bedside. Awake and alert in no ac [place] distress. Feeling back to her baseline. She is maintaining O2 saturation in the 90s on room air now. Afebrile. Hemodynamically stable. Blood culture revealed no growth. Blood glucose 81. She is continued on DuoNeb inhalations, Pulmicort and Perforomist inhalations, prednisone taper. Antibiotics in the form of Levaquin. Objective - Vital Signs Vital signs: Vital Signs Temp 97.8 F 09/08/20 09:50 Pulse 87 09/08/20 09:50 Resp 20 09/08/20 09:50 BP 126/77 09/08/20 09:50 Pulse Ox 93 L 09/08/20 09:50 Intake & Output 09/07/20 09/08/20 09/08/20 18:59 06:59 18:59 Intake Total 1680 480 480 Balance 1680 480 480 Weight 69.2 kg Intake: Oral 1680 480 480 Other: # Voids 1 - Exam GENERAL EXAM: Alert, pleasant 70-year-old female patient, up in a chair at the bedside, on room air, comfortable in no apparent distress. HEAD: Normocephalic. EYES: Normal reaction of pupils, equal size. NOSE: Clear with pink turbinates. THROAT: No erythema or exudates. NECK: No masses, no JVD. CHEST: No chest wall deformity. LUNGS: Equal air entry with faint end expiratory wheeze, diminished. CVS: S1 and S2 normal with no audible murmur, regular rhythm. ABDOMEN: No hepatosplenomegaly, normal bowel sounds, no guarding or rigidity. SPINE: No scoliosis or deformity SKIN: No rashes CENTRAL NERVOUS SYSTEM: No focal deficits, tone is normal in all 4 extremities. EXTREMITIES: There is no peripheral edema. No clubbing, no cyanosis. Peripheral pulses are intact. - Labs CBC & Chem 7: 09/04/20 19:46 09/04/20 19:46 Labs: Abnormal Lab Results - Last 24 Hours (Table) 09/07/20 09/07/20 Range/Units 16:43 20:16 POC Glucose (mg/dL) 116 H 110 H (75-99) mg/dL Microbiology - Last 24 Hours (Table) 09/04/20 19:46 Blood Culture - Preliminary Blood No Growth after 72 hours Assessment and Plan Assessment: 1. Acute hypoxemic respiratory failure secondary to COPD exacerbation. 2. History of essential hypertension. 3. Osteoarthritis. 4. History of pneumonia. 5. Recent resumption of tobacco use. Plan: The patient was seen and evaluated by Dr. Chandra Cleared for discharge from the pulmonary standpoint Continue bronchodilators, prednisone taper Complete a course of antibiotics Follow-up in our office in 1-2 weeks' time I, the cosigning physician, performed a history & physical examination of the patient. Lungs sounds with faint bilateral end expiratory wheeze, diminished Maintaining good O2 saturations in the 90s on room air. I discussed the assessment and plan of care with my nurse practitioner, Paloma Garcia. I attest to the above note as dictated by her.
== END 2020-09-08 12:16 | disposition home or self-care (01) | DRG 190 ==
LOC: EC 19:13 → 3SCARD 21:14
PROVIDERS: ADMIT Internal Medicine Geriatric Medicine; ATTEND Internal Medicine Geriatric Medicine
PROC: 5A09457 Assistance with Respiratory Ventilation, 24-96 Consecutive Hours, Continuous Positive Airway Pressure (ICD-10-PCS; principal; 2020-09-04)
DX: J44.1 Chronic obstructive pulmonary disease with (acute) exacerbation (principal); J96.01 Acute respiratory failure with hypoxia; I16.9 Hypertensive crisis, unspecified; Z20.822 Contact with and (suspected) exposure to COVID-19; F17.210 Nicotine dependence, cigarettes, uncomplicated; I10 Essential (primary) hypertension; M19.90 Unspecified osteoarthritis, unspecified site; Z71.6 Tobacco abuse counseling; Z79.52 Long term (current) use of systemic steroids; Z79.82 Long term (current) use of aspirin; Z79.899 Other long term (current) drug therapy; Z87.01 Personal history of pneumonia (recurrent); Z86.010 Personal history of colon polyps; Z98.49 Cataract extraction status, unspecified eye; Z98.890 Other specified postprocedural states; Z88.0 Allergy status to penicillin; Z88.2 Allergy status to sulfonamides; Z82.0 Family history of epilepsy and other diseases of the nervous system; Z82.49 Family history of ischemic heart disease and other diseases of the circulatory system; Z83.3 Family history of diabetes mellitus
CPT/HCPCS: 36415; 71045; 80053; 83605; 83735; 83880; 84484; 85025; 85610; 85730; 87040; 87635; 93005; 94640; 94660; 94760; 96361; 96365; 96375; 99285

== ENCOUNTER → 2021-06-15 | Outpatient (CLI) | payer MEDICARE ==
--- NOTE | 2021-06-16 16:47 | ECHOF ---
Referral Reason:R60.9 edema MEASUREMENTS -------- HEIGHT: 165.1 cm WEIGHT: 74.8 kg BP: RVIDd: 2.6 cm (< 3.3) IVSd: 1.3 cm (0.6 - 1.1) LVIDd: 3.7 cm (3.9 - 5.3) LVPWd: 1.0 cm (0.6 - 1.1) IVSs: 1.4 cm LVIDs: 3.1 cm LVPWs: 1.1 cm LA Diam: 3.5 cm (2.7 - 3.8) Ao Diam: 3.7 cm (2.0 - 3.7) AV Cusp: 1.5 cm (1.5 - 2.6) MV E Sami: 0.39 m/s MV DecT: 242 ms MV A Sami: 0.75 m/s MV E/A Ratio: 0.52 RAP: 5.00 mmHg RVSP: 32.66 mmHg FINDINGS -------- Sinus rhythm. This was a technically good study. The left ventricular size is normal. There is mild concentric left ventricular hypertrophy. Overa ll left ventricular systolic function is normal with, an EF between 55 - 60 %. The right ventricle is normal in size. The left atrial size is normal. The right atrial size is normal. The aortic valve is trileaflet, and appears structurally normal. No aortic stenosis or regurgitation. Mild mitral regurgitation is present. Mild tricuspid regurgitation present. Right ventricular systolic pressure is normal at < 35 mmHg. There is no pulmonic regurgitation present. Echo free space represents a pericardial fat pad. CONCLUSIONS -------- 1. The left ventricular size is normal. 2. There is mild concentric left ventricular hypertrophy. 3. The right ventricle is normal in size. 4. The left atrial size is normal. 5. The right atrial size is normal. 6. The aortic valve is trileaflet, and appears structurally normal. No aortic stenosis or regurgitati on. 7. Mild mitral regurgitation is present. 8. Mild tricuspid regurgitation present. 9. Echo free space represents a pericardial fat pad. QA INTERN: Padmaja Figueredo, [facility]
== END | disposition home or self-care (01) ==
LOC: RADECHMAIN 12:56
PROVIDERS: ATTEND Internal Medicine Geriatric Medicine
DX: I08.1 Rheumatic disorders of both mitral and tricuspid valves (principal)
CPT/HCPCS: 93306

== ENCOUNTER → 2021-08-22 | Outpatient (CLI) | payer MEDICARE ==
[~2021-08-22] MED LIST: BAMLANIVIMAB (EUA) 700 MG, ETESEVIMAB (EUA) 1,400 MG in SODIUM CHLORIDE 0.9% 100 ML IVPB ONE; SODIUM CHLORIDE 0.9% 50 ML IVPB ONE; SODIUM CHLORIDE 0.9% 500 ML 500 ML in EMPTY BAG 1 BAG IV PRN
[2021-08-22 13:58] VITALS: RESP 16; TEMP 96.3
[2021-08-22 14:59] VITALS: BP 112/79; PULSE 82
== END ==
LOC: PROCWHC3 12:49
PROVIDERS: ATTEND Internal Medicine Geriatric Medicine
DX: U07.1 COVID-19 (principal); Z87.891 Personal history of nicotine dependence; Z88.0 Allergy status to penicillin; Z88.2 Allergy status to sulfonamides
CPT/HCPCS: 96360; J3490; M0245

== ENCOUNTER → 2021-09-28 | Outpatient (CLI) | payer MEDICARE ==
--- NOTE | 2021-09-28 15:41 | XR ---
EXAMINATION TYPE: XR chest 2V DATE OF EXAM: 09/28/2021 COMPARISON: 09/04/2020 HISTORY: Shortness of breath TECHNIQUE: Frontal and lateral views of the chest are obtained. FINDINGS: Scattered senescent parenchymal changes noted. Hyperinflation compatible with COPD. Increased density right middle lobe may reflect underlying atelectasis or infiltrate. Heart size is stable. Mediastinal structures are stable and grossly unremarkable. No evidence for hilar prominence. Degenerative changes dorsal spine. IMPRESSION: 1. Increased density right middle lobe may reflect underlying atelectasis or infiltrate.
[2021-09-28 15:53] LABS: Appearance,Urine Cloudy (Clear); Bacteria,Urine Rare /hpf; Bilirubin,Urine Negative (Negative); Blood,Urine Negative (Negative); Budding Yeast,Urine Occasional /hpf; Color,Urine Light Yellow; Glucose,Urine (UA) Negative (Negative); Ketones,Urine Negative (Negative); Leukocyte Esterase,Urine Large (Negative); Mucus,Urine Rare /hpf; Nitrite,Urine Negative (Negative); PH, Urine 5.5 (5.0-8.0); Protein,Urine Negative (Negative); RBC,Urine 1 /hpf (0-5); Specific Gravity,Urine 1.009 (1.001-1.035); Squamous Epithelial Cell,Urine 2 /hpf (0-4); Urobilinogen,Urine <2.0 mg/dL (<2.0); WBC,Urine 2 /hpf (0-5)
[2021-09-28 16:09] LABS: INR 0.9 (<1.2); Partial Thromboplastin Time 25.6 sec (22.0-30.0); Prothrombin Time 10.2 sec (9.0-12.0)
[2021-09-28 19:45] LABS: Basophils # (A) 0.04 X 10*3/uL (0.00-0.10); Basophils % (A) 1.1 %; Eosinophils # (A) 0.11 X 10*3/uL (0.04-0.35); HCT 39.8 % (37.2-46.3); HGB 12.8 g/dL (12.0-15.0); Lymphocytes # (A) 0.98 X 10*3/uL (0.90-5.00); Lymphocytes % (A) 26.6 %; MCH 32.7 pg (27.0-32.0); MCHC 32.2 g/dL (32.0-37.0); MCV 101.5 fL (80.0-97.0); Mean Platelet Volume 9.7 fL (9.5-12.2); Monocytes % (A) 8.1 %; Neutrophils # (A) 2.25 X 10*3/uL (1.80-7.70); Neutrophils % (A) 60.9 %; Platelet Count 375 X 10*3/uL (140-440); RBC 3.92 X 10*6/uL (4.10-5.20); RDW 12.8 % (11.5-14.5); WBC 3.69 X 10*3/uL (4.50-10.00)
[2021-09-28 20:48] LABS: African American GFR (CKD) 84.8 (60.0-200.0); Anion Gap 15.2 mmol/L (10.00-18.00); Blood Urea Nitrogen 12.8 mg/dL (9.0-27.0); Calcium 9.2 mg/dL (8.7-10.3); Carbon Dioxide 22.8 mmol/L (20.0-27.5); Non-African American GFR(CKD) 73.1 (60.0-200.0); Potassium 4.2 mmol/L (3.5-5.5)
== END | disposition home or self-care (01) ==
LOC: LABPAT 14:16
PROVIDERS: ATTEND Orthopaedic Surgery Orthopaedic Surgery of the Spine
DX: Z01.818 Encounter for other preprocedural examination (principal); S32.029A Unspecified fracture of second lumbar vertebra, initial encounter for closed fracture; X58.XXXA Exposure to other specified factors, initial encounter; R06.02 Shortness of breath; R91.8 Other nonspecific abnormal finding of lung field
CPT/HCPCS: 36415; 71046; 80048; 81001; 85025; 85610; 85730; 93005

== ENCOUNTER → 2021-10-05 | Outpatient (CLI) | payer MEDICARE ==
[2021-10-05 14:56] LABS: Appearance,Urine Clear (Clear); Bilirubin,Urine Negative (Negative); Blood,Urine Negative (Negative); Color,Urine Yellow; Glucose,Urine (UA) Negative (Negative); Ketones,Urine Negative (Negative); Leukocyte Esterase,Urine Trace (Negative); Nitrite,Urine Negative (Negative); PH, Urine 6.5 (5.0-8.0); Protein,Urine Negative (Negative); RBC,Urine <1 /hpf (0-5); Specific Gravity,Urine 1.007 (1.001-1.035); Urobilinogen,Urine <2.0 mg/dL (<2.0); WBC,Urine 3 /hpf (0-5)
== END | disposition home or self-care (01) ==
LOC: LABPAT 11:26
PROVIDERS: ATTEND Physician Assistant
DX: Z01.812 Encounter for preprocedural laboratory examination (principal)
CPT/HCPCS: 81001

== ENCOUNTER 2021-10-08 11:29 | Day surgery (SDC) | payer MEDICARE ==
[2021-10-04 17:55] VITALS: BMI 26.6
[~2021-10-08 11:29] MED LIST changes: -BAMLANIVIMAB (EUA) 700 MG, ETESEVIMAB (EUA) 1,400 MG in SODIUM CHLORIDE 0.9% 100 ML IVPB ONE; +DEXAMETHASONE SOD PHOSPHATE 4 MG/ML 1 ML VIAL IV ONE; +HYDROmorphone 0.5 MG/0.5 ML SYRINGE IVP PRN; +LACTATED RINGERS 1,000 ML IV SCH; +MIDAZOLAM 2 MG/2 ML VIAL IV PRN; +ONDANSETRON 4 MG/2 ML VIAL IVP ONE; -SODIUM CHLORIDE 0.9% 50 ML IVPB ONE; -SODIUM CHLORIDE 0.9% 500 ML 500 ML in EMPTY BAG 1 BAG IV PRN; +ceFAZolin 1,000 MG in SODIUM CHLORIDE 0.9% IRRIGATIO 1,000 ML IRRIGATION PRN
[2021-10-08] MEDS ORDERED: LIDOCAINE 1% INJ 10MG/ML (20 ML MDV) ONE (13:07)
[2021-10-08] MEDS ORDERED: SUCCINYLCHOLINE CHLORIDE 100 MG/5 ML SYR IV ONE (13:07)
[2021-10-08] MEDS ORDERED: MIDAZOLAM 2 MG/2 ML VIAL ONE (13:07)
[2021-10-08] MEDS ORDERED: PROPOFOL 10 MG/ML 20 ML VIAL IV ONE (13:07)
[2021-10-08] MEDS ORDERED: fentaNYL (PF) 50 MCG/ML 2 ML AMP ONE (13:07)
[2021-10-08] MEDS ORDERED: IOPAMIDOL M200 10 ML VIAL MISCELLANE ONE (13:44)
[2021-10-08] MEDS ORDERED: BUPIVACAIN-EPI 0.25%-1:200,000 30 ML VIAL SQ ONE (13:44)
[2021-10-08 14:23] VITALS: TEMP 98.3
--- NOTE | 2021-10-08 14:30 | P.OP ---
Date of Procedure: 10/08/21 Preoperative Diagnosis: L2 vertebral compression fracture, subacute traumatic Low back pain Postoperative Diagnosis: Same Anesthesia: GETA Pathology: other (L2 vertebral body sent to pathology) Condition: stable Disposition: PACU Description of Procedure: BRIEF OPERATIVE NOTE Preoperative Diagnosis: L2 vertebral compression fracture, subacute traumatic Low back pain Postoperative Diagnosis: Same Procedure: Kyphoplasty of L2 Vertebral body biopsy of L2 Use of biplanar fluoroscopic guidance Surgeon: Dr. Abebe Coach Operator: quality assistant Anesthesia: General anesthesia Estimated blood loss: Less than 10 mL Specimen: Vertebral body biopsy of L2 sent to pathology in formalin Complications: None apparent Components implanted: Bone cement approximately 9 mL Disposition: To recovery room in good stable condition. OPERATIVE INDICATIONS The patient has been having issues in their back ever since sustaining an injury. She had a fall at home from a standing position and was found have a vertebral compression fracture at L2. Her some progressive height loss despite brace use and she was having persistent pain despite her regular use of a TLSO brace. The patient has been through conservative treatment. They attempted conservative care with bracing however they're not having any benefit despite b race use. They continue to have significant pain and debility due to their fracture. We discussed various treatment options including surgery, and the patient wishes to proceed with surgery We discussed the risk, patient's alternatives and benefits of surgery including but not limited to, risk of bleeding risk of infection, risk of need for further surgery, risk of decreased, loss of motion, loss of function, cement extravasation, nerve damage, paralysis, heart attack, blindness and . OPERATIVE SUMMARY After discussing all the risks, patient alternatives and benefits at length, the patient elected to proceed with surgical intervention, signed informed consent, and presented for their procedure. The patient was seen and examined in the preoperative holding area and the surgical site was marked. The patient was given antibiotics and brought to the operating room. The patient was sedated and intubated by anesthesia in standard fashion. The patient was positioned on to the operating room table in a prone position on the appropriate well-padded and well molded bilateral chest rolls. We were careful to pad any bony prominences and pressure points. We were careful to maintain the patient's cervical spine and good neutral alignment and position throughout. We used 2 C-arm machines to establish biplanar fluoroscopic guidance in AP and lateral positions. We were able to localize the fractures appropriately. The patient was prepped and draped in a normal standard fashion. An appropriate timeout and keystone protocol performed. We were able to proceed with the surgery. The local wound area was infiltrated with local anesthetic. An incision was made over the lateral aspect of the pedicle over the appropriate levels with a small 2 mm stab incision. Intraoperative fluoroscopy was taken which showed a marker at the appropriate level at the right of L2. With the appropriate level positively confirmed, I was able to position a sharp trocar over the lateral aspect of the pedicle. As able to advance the trocar into the pedicle and into the posterior aspect of vertebral body being careful to avoid penetration cephalad caudad or medially. The trocar was placed appropriately into the posterior aspect of vertebral body at the appropriate levels. This was confirmed with C-arm guidance. With the trocar intact I was then able to take a bone biopsy with a biopsy punch or a bony drill. The biopsy specimen was passed off to be sent to pathology in formalin. I was then able to place the kyphoplasty balloon within the vertebral body. The position was checked on C-arm. I was able to inflate the balloon under low pressure and visualization with C-arm. The balloon was well enclosed within the vertebral body. The cement was prepared. With the cement at appropriate working condition the balloons were deflated and removed. I was able to place bony cement with trocar with the cement delivery device under low pressure. It had good fill within the vertebral body. I was able to place Vito 9 mL of bone cement within the vertebral body. There is no evidence of any extravasation of the cement posteriorly toward the canal. The cement was well contained at the appropriate levels of L2. The cement was allowed to cure appropriately. The trochars removed and final images were taken on C-arm. This showed the cement at the appropriate levels. We were able to proceed with closure. The wound was cleaned and dried and dressed with the appropriate dressing. The drapes were broken down. The patient was gently rolled back onto their hospital bed being careful to maintain their cervical spine and good neutral alignment and position. They were woken up by anesthesia, extubated, and brought to the recovery room in good stable condition. The patient will be admitted to the hospital for observation and for appropriate postoperative care, medical management and monitoring. We will continue to follow them closely about the postoperative course.
[2021-10-08] MEDS ORDERED: LACTATED RINGERS 1,000 ML IV ONE (14:55)
[2021-10-08] MEDS ORDERED: IV FLUID CONTINUATION 1,000 ML IV ONE (14:56)
[2021-10-08 14:59] VITALS: RESP 18
--- NOTE | 2021-10-08 15:09 | FL ---
EXAMINATION TYPE: FL guidance operating room, XR lumbar spine 2 or 3V DATE OF EXAM: 10/08/2021 FLUOROSCOPY Fluoroscopy time of 55 seconds was used during kyphoplasty for L2 compression fracture. 4 image/s do cument/s the procedure.
[2021-10-08] MEDS ORDERED: HYDROcodone/APAP 5-325MG 1 EACH TAB PO ONE (15:15)
[2021-10-08] MEDS ORDERED: HYDROcodone/APAP 5-325MG 1 EACH TAB ONE (15:19)
[2021-10-08 15:43] VITALS: BP 120/78; PULSE 89
== END 2021-10-08 16:14 | disposition home or self-care (01) ==
LOC: OR 11:29
PROVIDERS: ATTEND Orthopaedic Surgery Orthopaedic Surgery of the Spine
DX: S32.020G Wedge compression fracture of second lumbar vertebra, subsequent encounter for fracture with delayed healing (principal); Z20.822 Contact with and (suspected) exposure to COVID-19
CPT/HCPCS: 22514; 86900; 86901; 86850; 87635; 72100; C1713; J2250; J1100; J0690; J2405; J2001; J3010; J0330; J2704; Q9966; 88307; 88311

== ENCOUNTER → 2022-01-04 | Outpatient (CLI) | payer MEDICARE ==
--- NOTE | 2022-01-04 11:42 | BD ---
EXAMINATION TYPE: Axial Bone Density DATE OF EXAM: 01/04/2022 COMPARISON: NONE CLINICAL HISTORY: 71 years year old Female. ICD-10 CODE: M81.0 OSTEOPOROSIS Height: 64 Weight: 170.3 FRAX RISK QUESTIONS: Alcohol (3 or more units per day): NO Family History (Parent hip fracture): YES MOTHER Glucocorticoids (More than 3mos): NO History of Fracture in Adulthood: YES Secondary Osteoporosis: 1. Type 1 Diabetes: NO 2. Hyperthyroidism: NO 3. Menopause before 45: NO 4. Malnutrition: NO 5. Chronic liver disease: NO Rheumatoid Arthritis: NO Current Tobacco Use: NO RISK FACTORS HISTORY OF: Hip Fracture (Right/Left): NO Spine Fracture: YES When: 2021 History of Wrist Fracture: NO Surgery to Spine/Hip(right/left)/Wrist (right/left): YES When: 2021 Family History of Osteoporosis: NO Active: NO Diet low in dairy products/other sources of calcium: YES Postmenopausal woman: YES Take estrogen and/or progesterone medications: NO Lost more than 2 inches in height since high school: YES Frequent falls: NO Poor Health: NO Hyperparathyroidism: NO Adrenal Insufficiency: NO MEDICATIONS: Prednisone or other steroids: NO Thyroid Medications: NO Osteoporosis Medications: NO Additional Medications: LISINOPRIL Additional History: EXAM MEASUREMENTS: Bone mineral density about the R hip (g/cm2): 0.821 Bone mineral density about the L hip (g/cm2): 0.873 T Score values are as follows: -----R Neck: -1.6 -----L Neck: -1.2 -----R Total: -1.5 -----L Total: -0.9 Bone mineral density has: DECREASED 6.6% since study of: 09/14/2015 FRAX%s: The graph provided illustrates a 25.7% chance for a major osteoporotic fx and a 10.1% chance for the hips probability for fx in 10 years time. IMPRESSION: Osteopenia NOTE: T-SCORE=SD OF THE YOUNG ADULT MEAN.
== END | disposition home or self-care (01) ==
LOC: RADBDWWP 10:26
PROVIDERS: ATTEND Internal Medicine Geriatric Medicine
DX: M85.89 Other specified disorders of bone density and structure, multiple sites (principal)
CPT/HCPCS: 77080

== ENCOUNTER 2022-01-07 09:25 | Observation (INO) | payer MEDICARE ==
[2022-01-07] MEDS ORDERED: ACETAMINOPHEN TAB 500 MG TAB PO STA (09:58)
[2022-01-07] MEDS ORDERED: IBUPROFEN 600 MG TAB PO STA (09:58)
--- NOTE | 2022-01-07 10:03 | ED ---
General Adult HPI - General Chief complaint: Shortness of Breath Stated complaint: DOMINIQUE Time Seen by Provider: 01/07/22 09:35 Source: patient, family, RN notes reviewed, old records reviewed Mode of arrival: wheelchair Limitations: no limitations - History of Present Illness Initial comments: This is a 71-year-old female presents emergency department with past medical history significant for COPD. Patient states she stopped smoking 2 years ago. Patient comes in today for difficulty breathing which has been worsening over the last few days. Patient states she does have a cough but not much sputum production. Patient states she had COVID and has had a cold vaccine. Patient denies any chest pain. Patient does not think she has a fever even though we just took it and measured fever. Patient denied any palpitations. Patient denies abdominal pain patient denies nausea vomiting diarrhea. Patient also states she has a mild headache - Related Data Home Medications Medication Instructions Recorded Confirmed buPROPion HCL [Wellbutrin SR] 150 mg PO BID 09/06/18 10/08/21 Albuterol Sulfate [Ventolin HFA] 1 - 2 puff INHALATION RT-Q6H PRN 09/04/20 10/08/21 Aspirin EC [Ecotrin Low Dose] 81 mg PO DAILY 09/04/20 10/08/21 Ergocalciferol [Vitamin D2 50,000 unit PO TU 09/04/20 10/08/21 (DRISDOL)] Budesonide/Formoterol Fumarate 2 puff INHALATION BID 10/04/21 10/08/21 [Symbicort 160-4.5 Mcg Inhaler] Nitrofurantoin Monohyd/M-Cryst 100 mg PO Q12HR 10/04/21 10/08/21 [Macrobid] Previous Rx's Medication Instructions Recorded lisinopriL [Zestril] 5 mg PO DAILY #30 tab 09/08/18 Allergies Allergy/AdvReac Type Severity Reaction Status Date / Time Penicillins Allergy Rash/Hives Verified 01/07/22 09:38 Sulfa (Sulfonamide Allergy tongue Verified 01/07/22 09:38 Antibiotics) swelling Review of Systems ROS Statement: Those systems with pertinent positive or pertinent negative responses have been documented in the HPI. ROS Other: All systems not noted in ROS Statement are negative. Past Medical History Past Medical History: COPD Additional Past Medical History / Comment(s): hx. colon polyps History of Any Multi-Drug Resistant Organisms: None Reported Past Surgical History: Tonsillectomy Additional Past Surgical History / Comment(s): catarat surg. Past Anesthesia/Blood Transfusion Reactions: No Reported Reaction Past Psychological History: No Psychological Hx Reported Smoking Status: Former smoker - Past Family History Mother Family Medical History: No Reported History Additional Family Medical History / Comment(s): Mother from Alzheimer's dementia. Father Additional Family Medical History / Comment(s): Father from coronary artery disease. Sister(s) Additional Family Medical History / Comment(s): Patient has 2 sisters with no major medical problems. Patient does not have any brothers. Patient has one son with no major medical problems. General Exam - General Exam Comments Initial Comments: GENERAL: Patient is well-developed and well-nourished. Patient is nontoxic and well- hydrated and is in mild distress. ENT: Neck is soft and supple. No significant lymphadenopathy is noted. Oropharynx is clear. Moist mucous membranes. Neck has full range of motion without eliciting any pain. EYES: The sclera were anicteric and conjunctiva were pink and moist. Extraocular movements were intact and pupils were equal round and reactive to light. Eyelids were unremarkable. PULMONARY: Patient has expiratory wheezing and some crackles in the bases. CARDIOVASCULAR: Patient is tachycardic at 110 bpm ABDOMEN: Soft and nontender with normal bowel sounds. SKIN: Skin is clear with no lesions or rashes and otherwise unremarkable. NEUROLOGIC: Patient is alert and oriented x3. Cranial nerves II through XII are grossly intact. Motor and sensory are also intact. Normal speech, volume and content. Symmetrical smile. MUSCULOSKELETAL: Normal extremities with adequate strength and full range of motion. Scant edema bilaterally LYMPHATICS: No significant lymphadenopathy is noted PSYCHIATRIC: Normal psychiatric evaluation. Limitations: no limitations Course Vital Signs 01/07/22 01/07/22 01/07/22 09:32 09:48 09:50 Temperature 98.3 F 102.1 F H Pulse Rate 103 H 104 H Respiratory 20 22 Rate Blood Pressure 128/74 109/79 O2 Sat by Pulse 94 L 95 Oximetry 01/07/22 01/07/22 11:07 11:18 Temperature Pulse Rate 94 101 H Respiratory Rate Blood Pressure O2 Sat by Pulse Oximetry Medical Decision Making - Medical Decision Making EKG shows sinus rhythm at 95 bpm IN interval is 141 QRS is 92 QT interval 349 QTC is 42 per patient's EKG shows no ST segment elevation or depression. Patient received multiple breathing treatments in the emergency department continued to have poor air movement and wheezing. Chest x-ray showed no acute abnormality. Patient received steroids in the emergency department as well and a dose of Rocephin. I spoke with Dr. Reynoso agreed to admit the patient admitted the patient wrote admitting orders. - Lab Data Result diagrams: 01/07/22 10:13 01/07/22 10:13 Lab Results 01/07/22 01/07/22 01/07/22 Range/Units 10:13 10:13 10:13 WBC 4.2 (3.8-10.6) k/uL RBC 3.86 (3.80-5.40) m/uL Hgb 13.0 (11.4-16.0) gm/dL Hct 38.1 (34.0-46.0) % MCV 98.8 (80.0-100.0) fL MCH 33.6 (25.0-35.0) pg MCHC 34.0 (31.0-37.0) g/dL RDW 12.7 (11.5-15.5) % Plt Count 258 (150-450) k/uL MPV 7.3 Neutrophils % 83 % Lymphocytes % 7 % Monocytes % 5 % Eosinophils % 1 % Basophils % 0 % Neutrophils # 3.5 (1.3-7.7) k/uL Lymphocytes # 0.3 L (1.0-4.8) k/uL Monocytes # 0.2 (0-1.0) k/uL Eosinophils # 0.0 (0-0.7) k/uL Basophils # 0.0 (0-0.2) k/uL PT 9.8 (9.0-12.0) sec INR 0.9 (<1.2) APTT 25.6 (22.0-30.0) sec Sodium (137-145) mmol/L Potassium (3.5-5.1) mmol/L Chloride (98-107) mmol/L Carbon Dioxide (22-30) mmol/L Anion Gap mmol/L BUN (7-17) mg/dL Creatinine (0.52-1.04) mg/dL Est GFR (CKD-EPI)AfAm (>60 ml/min/1.73 sqM) Est GFR (CKD-EPI)NonAf (>60 ml/min/1.73 sqM) Glucose (74-99) mg/dL Plasma Lactic Acid Tank (0.7-2.0) mmol/L Calcium (8.4-10.2) mg/dL Total Bilirubin (0.2-1.3) mg/dL AST (14-36) U/L ALT (4-34) U/L Alkaline Phosphatase (38-126) U/L Total Protein (6.3-8.2) g/dL Albumin (3.5-5.0) g/dL Urine Color Yellow Urine Appearance Cloudy H (Clear) Urine pH 7.0 (5.0-8.0) Ur Specific [place] 1.017 (1.001-1.035) Urine Protein Negative (Negative) Urine Glucose (UA) Negative (Negative) Urine Ketones Negative (Negative) Urine Blood Negative (Negative) Urine Nitrite Negative (Negative) Urine Bilirubin Negative (Negative) Urine Urobilinogen 4.0 (<2.0) mg/dL Ur Leukocyte Esterase Negative (Negative) Urine WBC 1 (0-5) /hpf Ur Squamous Epith Cells <1 (0-4) /hpf Urine Mucus Rare H (None) /hpf Coronavirus (PCR) (Not Detectd) Influenza Type A RNA (Not Detectd) Influenza Type B (PCR) (Not Detectd) 01/07/22 01/07/22 01/07/22 Range/Units 10:13 10:13 10:13 WBC (3.8-10.6) k/uL RBC (3.80-5.40) m/uL Hgb (11.4-16.0) gm/dL Hct (34.0-46.0) % MCV (80.0-100.0) fL MCH (25.0-35.0) pg MCHC (31.0-37.0) g/dL RDW (11.5-15.5) % Plt Count (150-450) k/uL MPV Neutrophils % % Lymphocytes % % Monocytes % % Eosinophils % % Basophils % % Neutrophils # (1.3-7.7) k/uL Lymphocytes # (1.0-4.8) k/uL Monocytes # (0-1.0) k/uL Eosinophils # (0-0.7) k/uL Basophils # (0-0.2) k/uL PT (9.0-12.0) sec INR (<1.2) APTT (22.0-30.0) sec Sodium 132 L (137-145) mmol/L Potassium 4.5 (3.5-5.1) mmol/L Chloride 103 (98-107) mmol/L Carbon Dioxide 25 (22-30) mmol/L Anion Gap 4 mmol/L BUN 12 (7-17) mg/dL Creatinine 0.64 (0.52-1.04) mg/dL Est GFR (CKD-EPI)AfAm >90 (>60 ml/min/1.73 sqM) Est GFR (CKD-EPI)NonAf 89 (>60 ml/min/1.73 sqM) Glucose 106 H (74-99) mg/dL Plasma Lactic Acid Tank 0.9 (0.7-2.0) mmol/L Calcium 7.9 L (8.4-10.2) mg/dL Total Bilirubin 0.6 (0.2-1.3) mg/dL AST 31 (14-36) U/L ALT 24 (4-34) U/L Alkaline Phosphatase 75 (38-126) U/L Total Protein 6.2 L (6.3-8.2) g/dL Albumin 3.8 (3.5-5.0) g/dL Urine Color Urine Appearance (Clear) Urine pH (5.0-8.0) Ur Specific [place] (1.001-1.035) Urine Protein (Negative) Urine Glucose (UA) (Negative) Urine Ketones (Negative) Urine Blood (Negative) Urine Nitrite (Negative) Urine Bilirubin (Negative) Urine Urobilinogen (<2.0) mg/dL Ur Leukocyte Esterase (Negative) Urine WBC (0-5) /hpf Ur Squamous Epith Cells (0-4) /hpf Urine Mucus (None) /hpf Coronavirus (PCR) (Not Detectd) Influenza Type A RNA Not Detected (Not Detectd) Influenza Type B (PCR) Not Detected (Not Detectd) 01/07/22 Range/Units 10:13 WBC (3.8-10.6) k/uL RBC (3.80-5.40) m/uL Hgb (11.4-16.0) gm/dL Hct (34.0-46.0) % MCV (80.0-100.0) fL MCH (25.0-35.0) pg MCHC (31.0-37.0) g/dL RDW (11.5-15.5) % Plt Count (150-450) k/uL MPV Neutrophils % % Lymphocytes % % Monocytes % % Eosinophils % % Basophils % % Neutrophils # (1.3-7.7) k/uL Lymphocytes # (1.0-4.8) k/uL Monocytes # (0-1.0) k/uL Eosinophils # (0-0.7) k/uL Basophils # (0-0.2) k/uL PT (9.0-12.0) sec INR (<1.2) APTT (22.0-30.0) sec Sodium (137-145) mmol/L Potassium (3.5-5.1) mmol/L Chloride (98-107) mmol/L Carbon Dioxide (22-30) mmol/L Anion Gap mmol/L BUN (7-17) mg/dL Creatinine (0.52-1.04) mg/dL Est GFR (CKD-EPI)AfAm (>60 ml/min/1.73 sqM) Est GFR (CKD-EPI)NonAf (>60 ml/min/1.73 sqM) Glucose (74-99) mg/dL Plasma Lactic Acid Tank (0.7-2.0) mmol/L Calcium (8.4-10.2) mg/dL Total Bilirubin (0.2-1.3) mg/dL AST (14-36) U/L ALT (4-34) U/L Alkaline Phosphatase (38-126) U/L Total Protein (6.3-8.2) g/dL Albumin (3.5-5.0) g/dL Urine Color Urine Appearance (Clear) Urine pH (5.0-8.0) Ur Specific [place] (1.001-1.035) Urine Protein (Negative) Urine Glucose (UA) (Negative) Urine Ketones (Negative) Urine Blood (Negative) Urine Nitrite (Negative) Urine Bilirubin (Negative) Urine Urobilinogen (<2.0) mg/dL Ur Leukocyte Esterase (Negative) Urine WBC (0-5) /hpf Ur Squamous Epith Cells (0-4) /hpf Urine Mucus (None) /hpf Coronavirus (PCR) Not Detected (Not Detectd) Influenza Type A RNA (Not Detectd) Influenza Type B (PCR) (Not Detectd) Disposition Clinical Impression: COPD exacerbation, Bronchitis Disposition: ADMITTED IP TO THIS HOSP Referrals: Kevin Hernandez MD [Primary Care Provider] - 1-2 days Time of Disposition: 13:46
[2022-01-07 10:32] LABS: Basophils % (A) 0 %; Eosinophils % (A) 1 %; HCT 38.1 % (34.0-46.0); Lymphocytes # (A) 0.3 k/uL (1.0-4.8); Lymphocytes % (A) 7 %; MCH 33.6 pg (25.0-35.0); MCV 98.8 fL (80.0-100.0); Mean Platelet Volume 7.3; Monocytes # (A) 0.2 k/uL (0-1.0); Monocytes % (A) 5 %; Neutrophils # (A) 3.5 k/uL (1.3-7.7); Neutrophils % (A) 83 %; Platelet Count 258 k/uL (150-450); RBC 3.86 m/uL (3.80-5.40); RDW 12.7 % (11.5-15.5); WBC 4.2 k/uL (3.8-10.6)
[2022-01-07] MEDS ORDERED: IPRATROPIUM-ALBUTEROL 3 ML NEB INHALATION STA (10:37)
[2022-01-07 10:42] LABS: INR 0.9 (<1.2); Partial Thromboplastin Time 25.6 sec (22.0-30.0); Prothrombin Time 9.8 sec (9.0-12.0)
[2022-01-07 10:45] LABS: African American GFR (CKD) >90 (>60 ml/min/1.73 sqM); Albumin 3.8 g/dL (3.5-5.0); Anion Gap 4 mmol/L; Blood Urea Nitrogen 12 mg/dL (7-17); Calcium 7.9 mg/dL (8.4-10.2); Chloride 103 mmol/L (98-107)
--- NOTE | 2022-01-07 10:59 | XR ---
EXAMINATION TYPE: XR chest 2V DATE OF EXAM: 01/07/2022 COMPARISON: Chest x-ray September 28, 2021 HISTORY: Fever and cough. TECHNIQUE: Frontal and lateral views of the chest are obtained. FINDINGS: There is background chronic emphysematous change without suspicious focal air space opacit y, pleural effusion, or pneumothorax seen. The cardiac silhouette size is stable and within normal l imits with atherosclerotic and ectatic thoracic aorta. The osseous structures are demineralized. Ve rtebroplasty in the upper lumbar spine is noted IMPRESSION: Chronic changes without acute pulmonary process. No significant change from prior.
[2022-01-07 11:41] LABS: ALT 24 U/L (4-34); Carbon Dioxide 25 mmol/L (22-30); Glucose 106 mg/dL (74-99); Non-African American GFR(CKD) 89 (>60 ml/min/1.73 sqM); Potassium 4.5 mmol/L (3.5-5.1); Sodium 132 mmol/L (137-145); Total Bilirubin 0.6 mg/dL (0.2-1.3); Total Protein 6.2 g/dL (6.3-8.2)
[2022-01-07 11:42] LABS: AST 31 U/L (14-36); Alkaline Phosphatase 75 U/L (38-126)
[2022-01-07] MEDS: SODIUM CHLORIDE 0.9% 500 ML 500 ML IV SCH ×2 (11:46→23:27)
[2022-01-07 12:03] LABS: Appearance,Urine Cloudy (Clear); Bilirubin,Urine Negative (Negative); Blood,Urine Negative (Negative); Color,Urine Yellow; Glucose,Urine (UA) Negative (Negative); Ketones,Urine Negative (Negative); Leukocyte Esterase,Urine Negative (Negative); Mucus,Urine Rare /hpf; Nitrite,Urine Negative (Negative); Protein,Urine Negative (Negative); Specific Gravity,Urine 1.017 (1.001-1.035); Squamous Epithelial Cell,Urine <1 /hpf (0-4); WBC,Urine 1 /hpf (0-5)
[2022-01-07] MEDS ORDERED: cefTRIAXone IN SWFI 1,000 MG/10 ML SYRINGE IVP STA ×2 (12:24→12:40)
[2022-01-07] MEDS ORDERED: AZITHROMYCIN 500 MG TAB PO STA (12:41)
[2022-01-07] MEDS ORDERED: methylPREDNISolone SOD SUCCI 125 MG/2 ML VIAL IV STA (12:41)
[2022-01-07] MEDS: IPRATROPIUM-ALBUTEROL 3 ML NEB INHALATION PRN (15:53)
[2022-01-07] MEDS ORDERED: BUMETANIDE 1 MG TAB PO PRN (17:57)
[2022-01-07] MEDS ORDERED: POTASSIUM CHLORIDE ER 10 MEQ TAB.ER.PRT PO PRN (17:57)
[2022-01-07] MEDS: methylPREDNISolone SOD SUCCI 125 MG/2 ML VIAL IV SCH ×2 (18:40→23:37)
[2022-01-07] MEDS: SYMBICORT 160-4.5 MCG INHALER INHALATION SCH (19:54)
[2022-01-07] MEDS: buPROPion SR 150 MG TABLET.ER PO SCH (20:46)
--- NOTE | 2022-01-07 23:56 | P.HPIM ---
History of Present Illness H&P Date: 01/07/22 HISTORY OF PRESENT ILLNESS 71-year-old female one of my office patient was hospitalized last in 09/04/2020 for COPD exacerbation and respiratory failure has done very well been doing good all along until the last few days when patient developed to have significant shortness of breath hypoxia and dyspnea with minimum exertion become much worse, despite using patient inhaler regular basis she continued to have inspiratory expiratory wheezes. Patient had stopped smoking over 2 years ago and has done slightly but better with since continued to have slight decline in her lung volume with PFT testing. after coming around of nebulizer management and after patient been loaded with steroid started feeling a bit better and calmer still required 1-2 L O2 keep pulse ox above 90 percentile. Patient also found to have normal white blood cell normal chemistry urine test with normal drug screen. Continue patient on bronchitis. This point I will be seen pulmonary. REVIEW OF SYSTEMS Constitutional: No fever, no chills, no night sweats. No weight change. No weakness, fatigue or lethargy. No daytime sleepiness. EENT: No headache. No blurred vision or double vision, no loss of vision. No loss of Hearing, no ringing in the ears, no dizziness. No nasal drainage or congestion. No epistaxis. No sore throat. Lungs: Reports shortness of breath, cough, no sputum production. Reports wheezing. Cardiovascular: No chest pain, no lower extremity edema. No palpitations. No paroxysmal nocturnal dyspnea. No orthopnea. No lightheadedness or dizziness. No syncopal episodes. Abdominal: No abdominal pain. No nausea, vomiting. No diarrhea. No constipation. No bloody or tarry stools. No loss of appetite. Genitourinary: No dysuria, increased frequency, urgency. No urinary retention. Musculoskeletal: No myalgias. No muscle weakness, no gait dysfunction, no frequent falls. No back pain. No neck pain. Integumentary: No wounds, no lesions. No rash or pruritus. No unusual bruising. No change in hair or nails. Neurologic: No aphasia. No facial droop. No change in mentation. No head injury. No headache. No paralysis. No paresthesia. Psychiatric: No depression. No anxiety. No mood swings. Endocrine: No abnormal blood sugars. No weight change. No excessive sweating or thirst. No cold intolerance. SOCIAL HISTORY Patient was a smoker of greater than 1 pack per day for 30 years and quit in 2018 for brief period. She has smoked on and off and recently picked up in AprMay 2020. Patient drinks 2 beers every day. She denies having any withdrawal symptoms or seizure activity from this. She lives at home with her . She does not have a nebulizer. No CPAP. No oxygen. She is retired from [employer] and May 2018. FAMILY HISTORY Mother at age 84 from Alzheimer's dementia. Father at age 70 from a myocardial infarction. Patient has 2 sisters one has passed from diabetes, occasions. One is living with no major medical problems. Patient does not have any brothers. She has one son with no major medical problems. PHYSICAL EXAMINATION Gen: This is a 70-year-old female. She is resting in bed and appears to be comfortable. No acute respiratory distress noted. HEENT: Head is atraumatic, normocephalic. Pupils equal, round. Sclerae is anicteric. NECK: Supple. No JVD. No lymphadenopathy. No thyromegaly. LUNGS: Bilateral expiratory wheeze and rhonchiClear to auscultation. No wheezes or rhonchi. No intercostal retractions. HEART: Regular rate and rhythm. No murmur. ABDOMEN: Soft. Bowel sounds are present. No masses. No tenderness. EXTREMITIES: No pedal edema. No calf tenderness. NEUROLOGICAL: Patient is awake, alert and oriented x3. Cranial nerves 2 through 12 are grossly intact. ASSESSMENT AND PLAN 1 severe dyspnea and shortness of breath: Secondary to COPD exacerbation and severe bronchitis with treat underlying disease. 2 COPD exacerbation: Not a clear white happen the patient will be starting on Solu-Medrol 125 mg injection been 60 mg every 6 hours, patient be seen pulmonary continue nebulizer treatment and continue empiric treatment for community- acquired pneumonia. 3. chronic hypoxic respiratory failure secondary to COPD exacerbation. Consult with pulmonary medicine. Continue DuoNeb treatments 4 times daily and as needed, Pulmicort 1 mg twice daily, Perforomist twice daily, Solu-Medrol 60 mg IV every 6 hours. 4 hypertension: Continue patient on lisinopril 5 mg a day. 5 chronic depression: Continue patient on Wellbutrin SR 150 mg twice a day. 6 chronic edema and mild pulmonary hypertension: Remain on Bumex will continue medication up to 2 mg twice a day if needed. 7 GI prophylaxis: Patient will be on Pepcid. 8 DVT prophylaxis: Patient be starting on. 9 tobacco dependency: Patient had quit smoking few month ago and has been doing well. CODE STATUS: Full code. Admit patient to the inpatient service for more than 2 night stay. Past Medical History Past Medical History: COPD Additional Past Medical History / Comment(s): hx. colon polyps History of Any Multi-Drug Resistant Organisms: None Reported Past Surgical History: Tonsillectomy Additional Past Surgical History / Comment(s): catarat surg. Past Anesthesia/Blood Transfusion Reactions: No Reported Reaction Past Psychological History: No Psychological Hx Reported Smoking Status: Former smoker - Past Family History Mother Family Medical History: No Reported History Additional Family Medical History / Comment(s): Mother from Alzheimer's dementia. Father Additional Family Medical History / Comment(s): Father from coronary artery disease. Sister(s) Additional Family Medical History / Comment(s): Patient has 2 sisters with no major medical problems. Patient does not have any brothers. Patient has one son with no major medical problems. Medications and Allergies Home Medications Medication Instructions Recorded Confirmed Type buPROPion HCL [Wellbutrin SR] 150 mg PO BID 09/06/18 01/07/22 History lisinopriL [Zestril] 5 mg PO DAILY #30 tab 09/08/18 01/07/22 Rx Albuterol Sulfate [Ventolin HFA] 2 puff INHALATION RT-QID PRN 09/04/20 01/07/22 History Aspirin EC [Ecotrin Low Dose] 81 mg PO DAILY 09/04/20 01/07/22 History Budesonide/Formoterol Fumarate 2 puff INHALATION RT-BID 10/04/21 01/07/22 History [Symbicort 160-4.5 Mcg Inhaler] Bumetanide [Bumex] 1 - 2 mg PO DAILY PRN 01/07/22 01/07/22 History Ergocalciferol [Vitamin D2 (1250 1,250 mcg PO TH 01/07/22 01/07/22 History Mcg = 66561 Iu)] Potassium Chloride [Potassium 10 meq PO DAILY PRN 01/07/22 01/07/22 History Chloride ER] Allergies Allergy/AdvReac Type Severity Reaction Status Date / Time Penicillins Allergy Rash/Hives Verified 01/07/22 13:58 all over Sulfa (Sulfonamide Allergy tongue Verified 01/07/22 13:58 Antibiotics) swelling Physical Exam Vitals: Vital Signs Temp Pulse Resp BP Pulse Ox 01/07/22 16:04 92 01/07/22 15:54 90 95 01/07/22 15:13 79 18 128/69 96 01/07/22 11:18 101 H 01/07/22 11:07 94 01/07/22 09:50 102.1 F H 104 H 22 109/79 95 01/07/22 09:48 22 01/07/22 09:32 98.3 F 103 H 20 128/74 94 L Intake and Output 01/07/22 01/07/22 01/07/22 06:59 14:59 22:59 Other: Weight 77.111 kg Results CBC & Chem 7: 01/07/22 10:13 01/07/22 10:13 Labs: Abnormal Lab Results - Last 24 Hours (Table) 01/07/22 01/07/22 01/07/22 Range/Units 10:13 10:13 10:13 Lymphocytes # 0.3 L (1.0-4.8) k/uL Sodium 132 L (137-145) mmol/L Glucose 106 H (74-99) mg/dL Calcium 7.9 L (8.4-10.2) mg/dL Total Protein 6.2 L (6.3-8.2) g/dL Urine Appearance Cloudy H (Clear) Urine Mucus Rare H (None) /hpf
[2022-01-08] MEDS: methylPREDNISolone SOD SUCCI 125 MG/2 ML VIAL IV SCH ×3 (05:18→17:50)
[2022-01-08] MEDS: buPROPion SR 150 MG TABLET.ER PO SCH ×2 (07:32→21:16)
[2022-01-08] MEDS: AZITHROMYCIN 500 MG TAB PO SCH (07:32)
[2022-01-08] MEDS: ASPIRIN 81 MG PO SCH (07:32)
[2022-01-08] MEDS: lisinopriL 5 MG TAB PO SCH (07:32)
[2022-01-08] MEDS: ALBUTEROL NEBULIZED 2.5 MG/3 ML INHALATION PRN (08:18)
[2022-01-08] MEDS: SYMBICORT 160-4.5 MCG INHALER INHALATION SCH ×2 (08:19→20:06)
--- NOTE | 2022-01-08 10:35 | P.PN ---
Subjective Progress Note Date: 01/08/22 HISTORY OF PRESENT ILLNESS 71-year-old female one of my office patient was hospitalized last in 09/04/2020 for COPD exacerbation and respiratory failure has done very well been doing good all along until the last few days when patient developed to have significant shortness of breath hypoxia and dyspnea with minimum exertion become much worse, despite using patient inhaler regular basis she continued to have inspiratory expiratory wheezes. Patient had stopped smoking over 2 years ago and has done slightly but better with since continued to have slight decline in her lung v olume with PFT testing. after coming around of nebulizer management and after patient been loaded with steroid started feeling a bit better and calmer still required 1-2 L O2 keep pulse ox above 90 percentile. Patient also found to have normal white blood cell normal chemistry urine test with normal drug screen. Continue patient on bronchitis. This point I will be seen pulmonary. 01/08: Patient's breathing is better today at rest but she continues to have significant dyspnea with very little exertion. Pulse ox is 91% on room air. Heart rate 106, afebrile, blood pressure 126/80. Patient is continued on albuterol nebulizer treatments, azithromycin, DuoNeb treatments every 4 hours as needed, Symbicort twice daily, Solu-Medrol at 60 mg IV every 6 hours. Consult is in place with pulmonary medicine. NovoLog scale and ceftriaxone added. REVIEW OF SYSTEMS Constitutional: No fever, no chills, no night sweats. No weight change. No we akness, fatigue or lethargy. No daytime sleepiness. EENT: No headache. No blurred vision or double vision, no loss of vision. No loss of Hearing, no ringing in the ears, no dizziness. No nasal drainage or congestion. No epistaxis. No sore throat. Lungs: Reports shortness of breath, cough, no sputum production. Reports wheezing. Cardiovascular: No chest pain, no lower extremity edema. No palpitations. No paroxysmal nocturnal dyspnea. No orthopnea. No lightheadedness or dizziness. No syncopal episodes. Abdominal: No abdominal pain. No nausea, vomiting. No diarrhea. No constipation. No bloody or tarry stools. No loss of appetite. Genitourinary: No dysuria, increased frequency, urgency. No urinary retention. Musculoskeletal: No myalgias. No muscle weakness, no gait dysfunction, no frequent falls. No back pain. No neck pain. Integumentary: No wounds, no lesions. No rash or pruritus. No unusual bruising. No change in hair or nails. Neurologic: No aphasia. No facial droop. No change in mentation. No head injury. No headache. No paralysis. No paresthesia. Psychiatric: No depression. No anxiety. No mood swings. Endocrine: No abnormal blood sugars. No weight change. No excessive sweating or thirst. No cold intolerance. PHYSICAL EXAMINATION Gen: This is a 70-year-old female. She is resting in bed and appears to be comfortable. No acute respiratory distress noted. HEENT: Head is atraumatic, normocephalic. Pupils equal, round. Sclerae is anicteric. NECK: Supple. No JVD. No lymphadenopathy. No thyromegaly. LUNGS: Bilateral expiratory wheeze and rhonchiClear to auscultation. No wheezes or rhonchi. No intercostal retractions. HEART: Regular rate and rhythm. No murmur. ABDOMEN: Soft. Bowel sounds are present. No masses. No tenderness. EXTREMITIES: No pedal edema. No calf tenderness. NEUROLOGICAL: Patient is awake, alert and oriented x3. Cranial nerves 2 through 12 are grossly intact. ASSESSMENT AND PLAN 1 severe dyspnea and shortness of breath: Secondary to COPD exacerbation and severe bronchitis with treat underlying disease. 2 COPD exacerbation. Continue patient on DuoNeb treatments every 4 hours as needed, albuterol nebulizer treatments as needed, Symbicort twice daily, ceftriaxone 1 g daily and azithromycin 500 mg oral. Consult with pulmonary medicine. Continue IV Solu-Medrol at 60 mg every 6 hours. 3. chronic hypoxic respiratory failure secondary to COPD exacerbation. Consult with pulmonary medicine. Continue as in #2 4 hypertension: Continue patient on lisinopril 5 mg a day. 5 chronic depression: Continue patient on Wellbutrin SR 150 mg twice a day. 6 chronic edema and mild pulmonary hypertension: Remain on Bumex will continue medication up to 2 mg twice a day if needed. 7 GI prophylaxis: Patient will be on Pepcid. 8 DVT prophylaxis: Patient be starting on. 9 tobacco dependency: Patient had quit smoking few month ago and has been doing well. CODE STATUS: Full code. Impression and plan of care have been directed as dictated by the signing physician. Yanira Gilliland nurse practitioner acting as scribe for signing ph ysician. Objective - Vital Signs Vital signs: Vital Signs Temp 98.2 F 01/08/22 07:00 Pulse 94 01/08/22 07:00 Resp 20 01/08/22 07:42 BP 126/80 01/08/22 07:00 Pulse Ox 93 L 01/08/22 07:00 Intake & Output 01/07/22 01/08/22 01/08/22 18:59 06:59 18:59 Weight 77.111 kg 77.111 kg Other: # Voids 1 - Labs CBC & Chem 7: 01/07/22 10:13 01/07/22 10:13 Labs: Abnormal Lab Results - Last 24 Hours (Table) 01/07/22 01/07/22 01/07/22 Range/Units 10:13 10:13 10:13 Lymphocytes # 0.3 L (1.0-4.8) k/uL Sodium 132 L (137-145) mmol/L Glucose 106 H (74-99) mg/dL Calcium 7.9 L (8.4-10.2) mg/dL Total Protein 6.2 L (6.3-8.2) g/dL Urine Appearance Cloudy H (Clear) Urine Mucus Rare H (None) /hpf
--- NOTE | 2022-01-08 11:06 | P.CNPUL ---
History of Present Illness Consult date: 01/08/22 Requesting physician: Kevin Hernandez Reason for consult: dyspnea, cough, COPD Chief complaint: Shortness of breath, cough, congestion History of present illness: This is a very pleasant 71-year-old female patient with a known history of hypertension, previous COVID-19 pneumonia, chronic tobacco dependence however quit over 2 years ago. She does have chronic obstructive pulmonary disease with an FEV1 value of 74% of predicted. She follows with Dr. Chandra in our office for the same. She is maintained on Symbicort and albuterol. She was last seen 12/06/2021 for a COPD exacerbation and was treated with azithromycin and a prednisone taper. She did improve however the last few days she felt as though she was coming down with a cold. She had a sore throat. Cough congestion chest tightness and wheezing. She also had sinus congestion. She presented here to the emergency room yesterday for the same. Chest x-ray revealed chronic changes without acute pulmonary process. White count 4.2. Hemoglobin 13.0. Sodium 132. Potassium 4.5. BUN 12. Creatinine 0.64. Glucose 106. Michelle virus by PCR not detected. Influenza screen negative. She's been initiated on Symbicort, DuoNeb inhalations, IV Solu-Medrol. Empiric antibiotics in the form of azithromycin. She is seen today in consultation on the regular medical floor. Currently sitting up in bed. Awake and alert in no acute distress. She has a loose nonproductive cough. Dyspnea on exertion. No fever chills. Maintaining O2 saturations in the 90s on room air. Review of Systems REVIEW OF SYSTEMS: CONSTITUTIONAL: Denies any recent significant weight loss or weight gain. EYES: Denies change in vision. EARS, NOSE, MOUTH, THROAT: Positive for sore throat, sinus congestion. CARDIOVASCULAR: Denies chest pain, palpitations or syncopal episodes. RESPIRATORY: Positive for shortness of breath, cough, congestion no hemoptysis. GASTROINTESTINAL: Denies change in appetite, denies abdominal pain GENITOURINARY: Denies hematuria, denies infections. MUSKULOSKELETAL: Denies pain, denies swelling. INTEGUMENTARY: Denies rash, denies eczema. NEUROLOGICAL: Denies recent memory loss, no recent seizure activity. PSYCHIATRIC: Denies anxiety, denies depression. HEMATOLOGIC/LYMPHATIC: Denies anemia, denies enlarged lymph nodes. Past Medical History Past Medical History: COPD Additional Past Medical History / Comment(s): hx. colon polyps History of Any Multi-Drug Resistant Organisms: None Reported Past Surgical History: Tonsillectomy Additional Past Surgical History / Comment(s): catarat surg. Past Anesthesia/Blood Transfusion Reactions: No Reported Reaction Past Psychological History: No Psychological Hx Reported Smoking Status: Former smoker - Past Family History Mother Family Medical History: No Reported History Additional Family Medical History / Comment(s): Mother from Alzheimer's dementia. Father Additional Family Medical History / Comment(s): Father from coronary artery disease. Sister(s) Additional Family Medical History / Comment(s): Patient has 2 sisters with no major medical problems. Patient does not have any brothers. Patient has one son with no major medical problems. Medications and Allergies Home Medications Medication Instructions Recorded Confirmed Type buPROPion HCL [Wellbutrin SR] 150 mg PO BID 09/06/18 01/07/22 History lisinopriL [Zestril] 5 mg PO DAILY #30 tab 09/08/18 01/07/22 Rx Albuterol Sulfate [Ventolin HFA] 2 puff INHALATION RT-QID PRN 09/04/20 01/07/22 History Aspirin EC [Ecotrin Low Dose] 81 mg PO DAILY 09/04/20 01/07/22 History Budesonide/Formoterol Fumarate 2 puff INHALATION RT-BID 10/04/21 01/07/22 History [Symbicort 160-4.5 Mcg Inhaler] Bumetanide [Bumex] 1 - 2 mg PO DAILY PRN 01/07/22 01/07/22 History Ergocalciferol [Vitamin D2 (1250 1,250 mcg PO TH 01/07/22 01/07/22 History Mcg = 04449 Iu)] Potassium Chloride [Potassium 10 meq PO DAILY PRN 01/07/22 01/07/22 History Chloride ER] Allergies Allergy/AdvReac Type Severity Reaction Status Date / Time Penicillins Allergy Rash/Hives Verified 01/07/22 13:58 all over Sulfa (Sulfonamide Allergy tongue Verified 01/07/22 13:58 Antibiotics) swelling Physical Exam Vitals: Vital Signs Temp Pulse Pulse Resp BP BP Pulse Ox 01/08/22 08:28 106 H 01/08/22 08:20 100 91 L 01/08/22 07:42 20 01/08/22 07:00 98.2 F 94 18 126/80 93 L 01/08/22 02:07 98.0 F 88 19 124/84 93 L 01/07/22 23:20 97.9 F 99 20 155/95 94 L 01/07/22 22:59 98.2 F 79 22 117/69 98 01/07/22 18:30 98.3 F 89 24 121/83 94 L 01/07/22 16:04 92 01/07/22 15:54 90 95 01/07/22 15:13 79 18 128/69 96 01/07/22 11:18 101 H 01/07/22 11:07 94 Intake and Output 01/07/22 01/08/22 01/08/22 22:59 06:59 14:59 Intake Total 118 Balance 118 Intake: Oral 118 Other: # Voids 1 Weight 77.111 kg GENERAL EXAM: Alert, pleasant 71-year-old female patient, on room air, comfortable in no apparent distress. HEAD: Normocephalic. EYES: Normal reaction of pupils, equal size. NOSE: Clear with pink turbinates. THROAT: No erythema or exudates. NECK: No masses, no JVD. CHEST: No chest wall deformity. LUNGS: Equal air entry with bilateral end expiratory wheeze, diminished. CVS: S1 and S2 normal with no audible murmur, regular rhythm. ABDOMEN: No hepatosplenomegaly, normal bowel sounds, no guarding or rigidity. SPINE: No scoliosis or deformity SKIN: No rashes CENTRAL NERVOUS SYSTEM: No focal deficits, tone is normal in all 4 extremities. EXTREMITIES: There is no peripheral edema. No clubbing, no cyanosis. P eripheral pulses are intact. Results - Laboratory Findings CBC and BMP: 01/07/22 10:13 01/07/22 10:13 PT/INR, D-dimer PT 9.8 sec (9.0-12.0) 01/07/22 10:13 INR 0.9 (<1.2) 01/07/22 10:13 Abnormal lab findings: Abnormal Labs 01/07/22 01/07/22 01/07/22 10:13 10:13 10:13 Lymphocytes # 0.3 L Sodium 132 L Glucose 106 H Calcium 7.9 L Total Protein 6.2 L Urine Appearance Cloudy H Urine Mucus Rare H - Diagnostic Findings Chest x-ray: image reviewed Assessment and Plan Assessment: 1 Acute exacerbation of chronic obstructive pulmonary disease complicated by tracheobronchitis. Michelle virus not detected. Influenza screen negative. Chest x-ray shows no evidence of pneumonia 2 History of chronic obstructive pulmonary disease, not oxygen dependent, maintained on Symbicort and albuterol in the outpatient setting 3 History of chronic tobacco dependence however quit 2 years ago 4 Hypertension Plan: The patient was seen and evaluated Chest x-ray, labs and medications reviewed Continue empiric antibiotics Continue Symbicort, albuterol, IV Solu-Medrol Increase her activity as tolerated We will continue to follow and make further recommendations based on her clinical status I have personally seen and examined the patient, performed the documentation and the assessment and plan as written. Number of minutes spent on the visit: 20.
[2022-01-08 12:32] LABS: Glucose,Whole Blood 139 mg/dL (75-99)
[2022-01-08] MEDS: INSULIN ASPART (NovoLOG) 100 UNIT/ML VIAL SQ SCH ×3 (13:07→21:15)
[2022-01-08] MEDS: IPRATROPIUM-ALBUTEROL 3 ML NEB INHALATION PRN ×2 (16:26→20:06)
[2022-01-08 17:30] LABS: Glucose,Whole Blood 203 mg/dL (75-99)
[2022-01-08 20:19] LABS: Glucose,Whole Blood 116 mg/dL (75-99)
[2022-01-09] MEDS: methylPREDNISolone SOD SUCCI 125 MG/2 ML VIAL IV SCH ×2 (00:16→05:37)
[2022-01-09 07:17] LABS: Glucose,Whole Blood 135 mg/dL (75-99)
[2022-01-09] MEDS: AZITHROMYCIN 500 MG TAB PO SCH (08:02)
[2022-01-09] MEDS: ASPIRIN 81 MG PO SCH (08:02)
[2022-01-09] MEDS: buPROPion SR 150 MG TABLET.ER PO SCH ×2 (08:02→20:47)
[2022-01-09] MEDS: INSULIN ASPART (NovoLOG) 100 UNIT/ML VIAL SQ SCH ×4 (08:02→20:47)
[2022-01-09] MEDS: IPRATROPIUM-ALBUTEROL 3 ML NEB INHALATION PRN ×2 (08:31→21:23)
[2022-01-09] MEDS: SYMBICORT 160-4.5 MCG INHALER INHALATION SCH ×2 (08:31→21:24)
[2022-01-09] MEDS: lisinopriL 5 MG TAB PO SCH (09:41)
--- NOTE | 2022-01-09 10:41 | P.PN ---
Subjective Progress Note Date: 01/09/22 HISTORY OF PRESENT ILLNESS 71-year-old female one of my office patient was hospitalized last in 09/04/2020 for COPD exacerbation and respiratory failure has done very well been doing good all along until the last few days when patient developed to have significant shortness of breath hypoxia and dyspnea with minimum exertion become much worse, despite using patient inhaler regular basis she continued to have inspiratory expiratory wheezes. Patient had stopped smoking over 2 years ago and has done slightly but better with since continued to have slight decline in her lung v olume with PFT testing. after coming around of nebulizer management and after patient been loaded with steroid started feeling a bit better and calmer still required 1-2 L O2 keep pulse ox above 90 percentile. Patient also found to have normal white blood cell normal chemistry urine test with normal drug screen. Continue patient on bronchitis. This point I will be seen pulmonary. 01/08: Patient's breathing is better today at rest but she continues to have significant dyspnea with very little exertion. Pulse ox is 91% on room air. Heart rate 106, afebrile, blood pressure 126/80. Patient is continued on albuterol nebulizer treatments, azithromycin, DuoNeb treatments every 4 hours as needed, Symbicort twice daily, Solu-Medrol at 60 mg IV every 6 hours. Consult is in place with pulmonary medicine. NovoLog scale and ceftriaxone added. 01/09: Patient remains afebrile, heart rate 80s to 102, blood pressure 124/83, pulse ox 94% on room air. Capillary blood glucose running between 116 and 203. Blood culture no growth at 24 hours 1. Patient was seen by pulmonary medicine with recommendations to continue current plan. Lung sounds are improved today. Patient is continued on azithromycin, ceftriaxone, Symbicort DuoNeb and albuterol nebulizer treatments & Medrol 60 mg IV every 6 hours which will be transitioned to 40 mg every 8 hours and oral prednisone for tomorrow with anticipation of probable discharge tomorrow. REVIEW OF SYSTEMS Constitutional: No fever, no chills, no night sweats. No weight change. No weakness, fatigue or lethargy. No daytime sleepiness. EENT: No headache. No blurred vision or double vision, no loss of vision. No loss of Hearing, no ringing in the ears, no dizziness. No nasal drainage or co ngestion. No epistaxis. No sore throat. Lungs: Reports shortness of breath improved, cough, no sputum production. Reports wheezing. Cardiovascular: No chest pain, no lower extremity edema. No palpitations. No paroxysmal nocturnal dyspnea. No orthopnea. No lightheadedness or dizziness. No syncopal episodes. Abdominal: No abdominal pain. No nausea, vomiting. No diarrhea. No constipation. No bloody or tarry stools. No loss of appetite. Genitourinary: No dysuria, increased frequency, urgency. No urinary retention. Musculoskeletal: No myalgias. No muscle weakness, no gait dysfunction, no frequent falls. No back pain. No neck pain. Integumentary: No wounds, no lesions. No rash or pruritus. No unusual bruising. No change in hair or nails. Neurologic: No aphasia. No facial droop. No change in mentation. No head injury. No headache. No paralysis. No paresthesia. Psychiatric: No depression. No anxiety. No mood swings. Endocrine: No abnormal blood sugars. No weight change. No excessive sweating or thirst. No cold intolerance. PHYSICAL EXAMINATION Gen: This is a 70-year-old female. She is resting in bed and appears to be comfortable. No acute respiratory distress noted. HEENT: Head is atraumatic, normocephalic. Pupils equal, round. Sclerae is anicteric. NECK: Supple. No JVD. No lymphadenopathy. No thyromegaly. LUNGS: Mild expiratory wheeze and rhonchi. No intercostal retractions. HEART: Regular rate and rhythm. No murmur. ABDOMEN: Soft. Bowel sounds are present. No masses. No tenderness. EXTREMITIES: No pedal edema. No calf tenderness. NEUROLOGICAL: Patient is awake, alert and oriented x3. Cranial nerves 2 through 12 are grossly intact. ASSESSMENT AND PLAN 1 severe dyspnea and shortness of breath: Secondary to COPD exacerbation and severe bronchitis with treat underlying disease. 2 COPD exacerbation. Continue patient on DuoNeb treatments every 4 hours as needed, albuterol nebulizer treatments as needed, Symbicort twice daily, ceftriaxone 1 g daily and azithromycin 500 mg oral. Consult with pulmonary medicine. Continue IV Solu-Medrol decreased to 40 mg every 8 hours and start prednisone in the morning. 3. chronic hypoxic respiratory failure secondary to COPD exacerbation. Consult with pulmonary medicine. Continue as in #2 4 hypertension: Continue patient on lisinopril 5 mg a day. 5 chronic depression: Continue patient on Wellbutrin SR 150 mg twice a day. 6 chronic edema and mild pulmonary hypertension: Remain on Bumex will continue medication up to 2 mg twice a day if needed. 7 GI prophylaxis: Patient will be on Pepcid. 8 DVT prophylaxis: Patient be starting on. 9 tobacco dependency: Patient had quit smoking few month ago and has been doing well. CODE STATUS: Full code. DISCHARGE PLAN Home On Impression and plan of care have been directed as dictated by the signing physician. Yanira Gilliland nurse practitioner acting as scribe for signing physician. Objective - Vital Signs Vital signs: Vital Signs Temp 97.7 F 01/09/22 07:23 Pulse 85 01/09/22 07:23 Resp 18 01/09/22 07:23 BP 124/83 01/09/22 07:23 Pulse Ox 94 L 01/09/22 07:23 Intake & Output 01/08/22 01/09/22 01/09/22 18:59 06:59 18:59 Intake Total 404 Balance 404 Intake: Intake, IV Titration 50 Amount cefTRIAXone 1 gm In 50 Sodium Chloride 0.9% 50 ml @ 100 mls/hr IVPB Q24HR [facility] Rx#:[id number] Oral 354 Other: # Voids 1 - Labs CBC & Chem 7: 01/07/22 10:13 01/07/22 10:13 Labs: Abnormal Lab Results - Last 24 Hours (Table) 01/08/22 01/08/22 01/08/22 Range/Units 12:30 17:30 20:18 POC Glucose (mg/dL) 139 H 203 H 116 H (75-99) mg/dL 01/09/22 Range/Units 07:14 POC Glucose (mg/dL) 135 H (75-99) mg/dL Microbiology - Last 24 Hours (Table) 01/07/22 10:13 Blood Culture - Preliminary Blood No Growth after 24 hours 01/07/22 10:13 Blood Culture - Preliminary Blood No Growth after 24 hours
--- NOTE | 2022-01-09 10:50 | P.PN ---
Subjective Progress Note Date: 01/09/22 Principal diagnosis: Acute exacerbation of COPD and acute tracheobronchitis This is a very pleasant 71-year-old female patient with a known history of hypertension, previous COVID-19 pneumonia, chronic tobacco dependence however quit over 2 years ago. She does have chronic obstructive pulmonary disease with an FEV1 value of 74% of predicted. She follows with Dr. Chandra in our office for the same. She is maintained on Symbicort and albuterol. She was last seen 12/06/2021 for a COPD exacerbation and was treated with azithromycin and a prednisone taper. She did improve however the last few days she felt as though she was coming down with a cold. She had a sore throat. Cough congestion chest tightness and wheezing. She also had sinus congestion. She presented here to the emergency room yesterday for the same. Chest x-ray revealed chronic changes without acute pulmonary process. White count 4.2. Hemoglobin 13.0. Sodium 132. Potassium 4.5. BUN 12. Creatinine 0.64. Glucose 106. Michelle virus by PCR not detected. Influenza screen negative. She's been initiated on Symbicort, DuoNeb inhalations, IV Solu-Medrol. Empiric antibiotics in the form of azithromycin. She is seen today in consultation on the regular medical floor. Currently sitting up in bed. Awake and alert in no acute distress. She has a loose nonproductive cough. Dyspnea on exertion. No fever chills. Maintaining O2 saturations in the 90s on room air. Patient was reevaluated today on 01/09/22, he is on room air, saturating 94%, patient is doing a bit better compared to yesterday, but clearly she is not back to her baseline. Remains on bronchodilators in the form of DuoNeb, Symbicort, she is also on antibiotics and on Solu-Medrol. And I have a feeling that the patient could be discharged home tomorrow. Hence we could transition Solu- Medrol to prednisone at 40 mg daily and plan to tapered over the next 2 weeks Objective - Vital Signs Vital signs: Vital Signs Temp 97.7 F 01/09/22 07:23 Pulse 87 01/09/22 08:45 Resp 18 01/09/22 08:00 BP 124/83 01/09/22 07:23 Pulse Ox 93 L 01/09/22 08:34 Intake & Output 01/08/22 01/09/22 01/09/22 18:59 06:59 18:59 Intake Total 404 Balance 404 Intake: Intake, IV Titration 50 Amount cefTRIAXone 1 gm In 50 Sodium Chloride 0.9% 50 ml @ 100 mls/hr IVPB Q24HR [facility] Rx#:[id number] Oral 354 Other: # Voids 1 - Exam Physical Exam: Revealed a 71-year-old female in no distress, on room air. Head: Atraumatic, normocephalic. HEENT:[Neck is supple.] [No neck masses.] [No thyromegaly.] [No JVD.] Chest: [Symmetrical chest expansion, minimal wheezing on forced expiratory maneuver only.] Cardiac Exam: [Normal S1 and S2, no S3 gallop, no murmur.] Abdomen: [Soft, nontender, no megaly, no rebound, no guarding, normal bowel sounds.] Extremities: [No clubbing, no edema, no cyanosis.] Neurological Exam: [No focal neurologic deficit. Alert and oriented 3. Psychiatric: Normal mood affect and normal mental status examination. Skin: No rashes.] - Labs CBC & Chem 7: 01/07/22 10:13 01/07/22 10:13 Labs: Abnormal Lab Results - Last 24 Hours (Table) 01/08/22 01/08/22 01/08/22 Range/Units 12:30 17:30 20:18 POC Glucose (mg/dL) 139 H 203 H 116 H (75-99) mg/dL 01/09/22 Range/Units 07:14 POC Glucose (mg/dL) 135 H (75-99) mg/dL Microbiology - Last 24 Hours (Table) 01/07/22 10:13 Blood Culture - Preliminary Blood No Growth after 24 hours 01/07/22 10:13 Blood Culture - Preliminary Blood No Growth after 24 hours Assessment and Plan Assessment: Impression: Acute exacerbation of COPD and tracheobronchitis Chronic hypoxic respiratory failure secondary to COPD Benign essential hypertension History of depression Ex-smoker. Recommendation: Agree with transitioning Solu-Medrol to prednisone Continue present treatment plan, Consider discharging the patient home tomorrow on antibiotics and on prednisone burst and taper over the next 2 weeks. We will reassess the patient in the next 24 hours Time with Patient: Less than 30
[2022-01-09 12:04] LABS: Glucose,Whole Blood 126 mg/dL (75-99)
[2022-01-09] MEDS: ALBUTEROL NEBULIZED 2.5 MG/3 ML INHALATION PRN (15:19)
[2022-01-09] MEDS ORDERED: methylPREDNISolone SOD SUCCI 40 MG/ML 1 ML VIAL IV SCH (16:00)
[2022-01-09 17:22] LABS: Glucose,Whole Blood 104 mg/dL (75-99)
[2022-01-09 20:48] LABS: Glucose,Whole Blood 121 mg/dL (75-99)
[2022-01-10 03:50] VITALS: TEMP 97.8
[2022-01-10 06:55] LABS: Glucose,Whole Blood 88 mg/dL (75-99)
[2022-01-10 07:28] VITALS: BP 129/80
[2022-01-10] MEDS: INSULIN ASPART (NovoLOG) 100 UNIT/ML VIAL SQ SCH (07:32)
[2022-01-10] MEDS: buPROPion SR 150 MG TABLET.ER PO SCH (07:33)
[2022-01-10] MEDS: lisinopriL 5 MG TAB PO SCH (07:33)
[2022-01-10] MEDS: SYMBICORT 160-4.5 MCG INHALER INHALATION SCH (07:43)
[2022-01-10] MEDS: IPRATROPIUM-ALBUTEROL 3 ML NEB INHALATION PRN (07:43)
[2022-01-10 08:01] VITALS: PULSE 82
--- NOTE | 2022-01-10 08:28 | P.DS ---
Providers Date of admission: 01/08/22 07:56 Expected date of discharge: 01/10/22 Attending physician: Kevin Hernandez Consults: 01/07/22 13:47 Consult Physician Routine Consulting Provider: Bay Jaramillo Consult Reason/Comments: Shortness of breath Do you want consulting provider notified?: Yes [facility] Course: HISTORY OF PRESENT ILLNESS 71-year-old female one of my office patient was hospitalized last in 09/04/2020 for COPD exacerbation and respiratory failure has done very well been doing good all along until the last few days when patient developed to have significant shortness of breath hypoxia and dyspnea with minimum exertion become much worse, despite using patient inhaler regular basis she continued to have inspiratory expiratory wheezes. Patient had stopped smoking over 2 years ago and has done slightly but better with since continued to have slight decline in her lung volume with PFT testing. after coming around of nebulizer management and after patient been loaded with steroid started feeling a bit better and calmer still required 1-2 L O2 keep pulse ox above 90 percentile. Patient also found to have normal white blood cell normal chemistry urine test with normal drug screen. Continue patient on bronchitis. This point I will be seen pulmonary. 01/08: Patient's breathing is better today at rest but she continues to have significant dyspnea with very little exertion. Pulse ox is 91% on room air. Heart rate 106, afebrile, blood pressure 126/80. Patient is continued on albuterol nebulizer treatments, azithromycin, DuoNeb treatments every 4 hours as needed, Symbicort twice daily, Solu-Medrol at 60 mg IV every 6 hours. Consult is in place with pulmonary medicine. NovoLog scale and ceftriaxone added. 01/09: Patient remains afebrile, heart rate 80s to 102, blood pressure 124/83, pulse ox 94% on room air. Capillary blood glucose running between 116 and 203. Blood culture no growth at 24 hours 1. Patient was seen by pulmonary medicine with recommendations to continue current plan. Lung sounds are improved today. Patient is continued on azithromycin, ceftriaxone, Symbicort DuoNeb and albuterol nebulizer treatments & Medrol 60 mg IV every 6 hours which will be transitioned to 40 mg every 8 hours and oral prednisone for tomorrow with anticipation of probable discharge tomorrow. 01/10: Breathing status continues to improve and patient is stable. Assessment for home oxygen revealed pulse ox is 93% on room air with ambulation. Patient has been seen by pulmonary medicine and cleared for discharge. Patient discussed concern regarding depression and Wellbutrin does not seem to be helping her enough. She is agreeable to try Cymbalta and a new prescription will be sent to her pharmacy. Patient to follow-up next week to be rechecked. Patient will be discharged today in stable condition. DISCHARGE DIAGNOSES 1 severe dyspnea and shortness of breath: Secondary to COPD exacerbation and severe bronchitis 2 COPD exacerbation. 3. chronic hypoxic respiratory failure secondary to COPD exacerbation. 4 hypertension 5 chronic depression 6 chronic edema and mild pulmonary hypertension 7 tobacco dependency: Patient had quit smoking few month ago DISCHARGE PLAN Home Greater than 35 minutes was utilized and coordinating patient's discharge. Impression and plan of care have been directed as dictated by the signing physician. Yanira Gilliland nurse practitioner acting as scribe for signing physician. Patient Condition at Discharge: Good Plan - Discharge Summary New Discharge Prescriptions: New Ipratropium-Albuterol Nebulize [Duoneb 0.5 mg-3 mg/3 ml Soln] 3 ml INHALATION RT-QID PRN #120 dose PRN Reason: Shortness Of Breath Or Wheezing predniSONE 0 mg PO DIRECTED #30 tab Doxycycline [Vibramycin] 100 mg PO BID 7 Days #14 capsule Continue lisinopriL [Zestril] 5 mg PO DAILY #30 tab Aspirin EC [Ecotrin Low Dose] 81 mg PO DAILY Albuterol Sulfate [Ventolin HFA] 2 puff INHALATION RT-QID PRN PRN Reason: Shortness Of Breath Bumetanide [BUMEX] 1 - 2 mg PO DAILY PRN PRN Reason: swelling Budesonide/Formoterol Fumarate [Symbicort 160-4.5 Mcg Inhaler] 2 puff INHALATION RT-BID Potassium Chloride [Potassium Chloride ER] 10 meq PO DAILY PRN PRN Reason: w/bumex Ergocalciferol [Vitamin D2 (1250 Mcg = 39211 Iu)] 1,250 mcg PO TH Discontinued buPROPion HCL [Wellbutrin SR] 150 mg PO BID Discharge Medication List lisinopriL [Zestril] 5 mg PO DAILY #30 tab 09/08/18 [Rx] Albuterol Sulfate [Ventolin HFA] 2 puff INHALATION RT-QID PRN 09/04/20 [History] Aspirin EC [Ecotrin Low Dose] 81 mg PO DAILY 09/04/20 [History] Budesonide/Formoterol Fumarate [Symbicort 160-4.5 Mcg Inhaler] 2 puff INHALATION RT-BID 10/04/21 [History] Bumetanide [BUMEX] 1 - 2 mg PO DAILY PRN 01/07/22 [History] Ergocalciferol [Vitamin D2 (1250 Mcg = 33233 Iu)] 1,250 mcg PO TH 01/07/22 [History] Potassium Chloride [Potassium Chloride ER] 10 meq PO DAILY PRN 01/07/22 [History] Doxycycline [Vibramycin] 100 mg PO BID 7 Days #14 capsule 01/10/22 [Rx] Ipratropium-Albuterol Nebulize [Duoneb 0.5 mg-3 mg/3 ml Soln] 3 ml INHALATION RT-QID PRN #120 dose 01/10/22 [Rx] predniSONE 0 mg PO DIRECTED #30 tab 01/10/22 [Rx] Follow up Appointment(s)/Referral(s): Kevin Hernandez MD [Primary Care Provider] - 1 Week Bay Jaramillo MD [STAFF PHYSICIAN] - 1 Week Patient Instructions/Handouts: COPD (Chronic Obstructive Pulmonary Disease) (IP) Discharge Disposition: HOME SELF-CARE
[2022-01-10] MEDS ORDERED: ERGOCALCIFEROL 1,250 MCG (50,000 IU) CAPSULE PO SCH (09:00)
[2022-01-10] MEDS ORDERED: predniSONE 20 MG TAB PO SCH (09:00)
[2022-01-10 09:06] VITALS: RESP 18
--- NOTE | 2022-01-10 10:06 | P.PN ---
Subjective Progress Note Date: 01/10/22 This is a very pleasant 71-year-old female patient with a known history of hypertension, previous COVID-19 pneumonia, chronic tobacco dependence however quit over 2 years ago. She does have chronic obstructive pulmonary disease with an FEV1 value of 74% of predicted. She follows with Dr. Chandra in our office for the same. She is maintained on Symbicort and albuterol. She was last seen 12/06/2021 for a COPD exacerbation and was treated with azithromycin and a prednisone taper. She did improve however the last few days she felt as though she was coming down with a cold. She had a sore throat. Cough congestion chest tightness and wheezing. She also had sinus congestion. She presented here to the emergency room yesterday for the same. Chest x-ray revealed chronic changes without acute pulmonary process. White count 4.2. Hemoglobin 13.0. Sodium 132. Potassium 4.5. BUN 12. Creatinine 0.64. Glucose 106. Michelle virus by PCR not detected. Influenza screen negative. She's been initiated on Symbicort, DuoNeb inhalations, IV Solu-Medrol. Empiric antibiotics in the form of azithromycin. She is seen today in consultation on the regular medical floor. Currently sitting up in bed. Awake and alert in no acute distress. She has a loose nonproductive cough. Dyspnea on exertion. No fever chills. Maintaining O2 saturations in the 90s on room air. Patient was reevaluated today on 01/09/22, he is on room air, saturating 94%, patient is doing a bit better compared to yesterday, but clearly she is not back to her baseline. Remains on bronchodilators in the form of DuoNeb, Symbicort, she is also on antibiotics and on Solu-Medrol. And I have a feeling that the patient could be discharged home tomorrow. Hence we could transition Solu- Medrol to prednisone at 40 mg daily and plan to tapered over the next 2 weeks Patient is seen today 01/10/2022 in follow-up on the regular medical floor. She is awake and alert in no acute distress. Resting comfortably in bed. Maintaini ng good O2 saturations in the 90s on room air. She is nearly back to her baseline. She is continued on Simcor, DuoNeb, prednisone taper. Antibiotics in the form of ceftriaxone. Blood cultures reveal no growth. Objective - Vital Signs Vital signs: Vital Signs Temp 97.8 F 01/10/22 07:27 Pulse 82 01/10/22 08:01 Resp 18 01/10/22 08:00 BP 129/80 01/10/22 07:27 Pulse Ox 96 01/10/22 07:47 Intake & Output 01/09/22 01/10/22 01/10/22 18:59 06:59 18:59 Intake Total 480 118 Balance 480 118 Intake: Oral 480 118 Other: # Voids 2 1 - Exam GENERAL EXAM: Alert, pleasant 71-year-old female patient, on room air,, comfortable in no apparent distress. HEAD: Normocephalic. EYES: Normal reaction of pupils, equal size. NOSE: Clear with pink turbinates. THROAT: No erythema or exudates. NECK: No masses, no JVD. CHEST: No chest wall deformity. LUNGS: Equal air entry with faint end expiratory wheeze. CVS: S1 and S2 normal with no audible murmur, regular rhythm. ABDOMEN: No hepatosplenomegaly, normal bowel sounds, no guarding or rigidity. SPINE: No scoliosis or deformity SKIN: No rashes CENTRAL NERVOUS SYSTEM: No focal deficits, tone is normal in all 4 extremities. EXTREMITIES: There is no peripheral edema. No clubbing, no cyanosis. Peripheral pulses are intact. - Labs CBC & Chem 7: 01/07/22 10:13 01/07/22 10:13 Labs: Abnormal Lab Results - Last 24 Hours (Table) 01/09/22 01/09/22 01/09/22 Range/Units 12:02 17:13 20:46 POC Glucose (mg/dL) 126 H 104 H 121 H (75-99) mg/dL Microbiology - Last 24 Hours (Table) 01/07/22 10:13 Blood Culture - Preliminary Blood No Growth after 48 hours 01/07/22 10:13 Blood Culture - Preliminary Blood No Growth after 48 hours Assessment and Plan Assessment: 1 Acute exacerbation of chronic obstructive pulmonary disease complicated by tracheobronchitis. Michelle virus not detected. Influenza screen negative. Chest x-ray shows no evidence of pneumonia 2 History of chronic obstructive pulmonary disease, not oxygen dependent, mainta ined on Symbicort and albuterol in the outpatient setting 3 History of chronic tobacco dependence however quit 2 years ago 4 Hypertension Plan: The patient was seen and evaluated Cleared for discharge from the pulmonary standpoint Continue Symbicort, albuterol, redness on taper Follow-up with Dr. Chandra in 1-2 weeks' I have personally seen and examined the patient, performed the documentation and the assessment and plan as written. Number of minutes spent on the visit: 10.
== END 2022-01-10 10:17 | disposition home or self-care (01) ==
LOC: EC 09:25 → 6NMEDSUR 13:50 → OBSVTOIN 01-08 07:56 → INTOOBSV 01-08 07:56 → UNDODISIN 01-10 10:17
PROVIDERS: ADMIT Internal Medicine Geriatric Medicine; ATTEND Internal Medicine Geriatric Medicine
DX: J44.1 Chronic obstructive pulmonary disease with (acute) exacerbation (principal); J44.0 Chronic obstructive pulmonary disease with (acute) lower respiratory infection; J20.9 Acute bronchitis, unspecified; J96.11 Chronic respiratory failure with hypoxia; I10 Essential (primary) hypertension; R51.9 Headache, unspecified; F32.A Depression, unspecified; I27.20 Pulmonary hypertension, unspecified; R60.9 Edema, unspecified; Z20.822 Contact with and (suspected) exposure to COVID-19; Z79.899 Other long term (current) drug therapy; Z79.82 Long term (current) use of aspirin; Z79.51 Long term (current) use of inhaled steroids; Z88.0 Allergy status to penicillin; Z88.2 Allergy status to sulfonamides; Z86.010 Personal history of colon polyps; Z87.891 Personal history of nicotine dependence; Z87.01 Personal history of pneumonia (recurrent); Z86.16 Personal history of COVID-19; Z82.49 Family history of ischemic heart disease and other diseases of the circulatory system; Z82.0 Family history of epilepsy and other diseases of the nervous system; Z83.3 Family history of diabetes mellitus
CPT/HCPCS: 96376; 96374; 96375; 99285; 36415; 94640 ×8; 94760 ×2; 93005; 80053; 83605; 85025; 85610; 85730; 81001; 87040; 87502; 87635; 71046; G0378 ×4; J2920; J2930 ×3; S0106 ×4; J0696 ×4; J7512

== ENCOUNTER 2022-08-21 08:40 | Day surgery (SDC) | payer MEDICARE ==
[~2022-08-21 08:40] MED LIST changes: -DEXAMETHASONE SOD PHOSPHATE 4 MG/ML 1 ML VIAL IV ONE; -HYDROmorphone 0.5 MG/0.5 ML SYRINGE IVP PRN; -MIDAZOLAM 2 MG/2 ML VIAL IV PRN; -ONDANSETRON 4 MG/2 ML VIAL IVP ONE; -ceFAZolin 1,000 MG in SODIUM CHLORIDE 0.9% IRRIGATIO 1,000 ML IRRIGATION PRN
[2022-08-21] MEDS ORDERED: LACTATED RINGERS 1,000 ML IV ONE (09:21)
[2022-08-21 09:25] VITALS: TEMP 97.2
[2022-08-21] MEDS ORDERED: PROPOFOL 10 MG/ML 20 ML VIAL IV ONE (10:11)
[2022-08-21] MEDS ORDERED: LIDOCAINE 2% INJ 20 MG/ML (2 ML VIAL) ONE (10:11)
--- NOTE | 2022-08-21 10:25 | P.PCN ---
Date of Procedure: 08/21/22 Procedure(s) Performed: BRIEF HISTORY: Patient is a 72-year-old pleasant white female scheduled for an elective colonoscopy as a part of evaluation of prior history of colon polyps. Her last colonoscopy was 6 years ago. PROCEDURE PERFORMED: Colonoscopy with biopsy and snare polypectomy. PREOPERATIVE DIAGNOSIS: History of colon polyps. IV sedation per Anesthesia. PROCEDURE: After informed consent was obtained, the patient, was brought into the endoscopy unit. IV sedation was administered by Anesthesia under continuous monitoring. Digital rectal examination was normal. Initially the Olympus CF-160 flexible video colonoscope was then inserted in the rectum, gradually advanced into the cecum without any difficulty. Careful examination was performed as the scope was gradually being withdrawn. Ileocecal valve and the appendiceal orifice were visualized and appeared normal. Prep was excellent. Mucosa of the cecum, appeared normal. Ascending colon there was a 3 mm and 4 mm sessile polyp removed by cold biopsy. In the hepatic Flexure there was a 3 mm polyp that was removed by cold biopsy. In the transverse colon there was a 1 cm broad-based polyp removed by snare polypectomy. Rest of the ascending colon, transverse colon, descending colon, sigmoid colon, and rectum appeared normal. Scattered sigmoid diverticulosis seen. Retroflexion was performed in the rectum and no lesions were seen. The patient tolerated the procedure well. IMPRESSION: 3 mm and 4 mm sessile ascending colon polyp status post cold biopsy 3 mm hepatic flexure polyp status post biopsy 1 cm transverse colon polyp status post polypectomy Scattered sigmoidal diverticulosis. RECOMMENDATIONS: Findings of this examination were discussed with the patient as well as a family.. She was advised to follow with the biopsy results. If the biopsy results adenoma she can have a repeat colonoscopy in 3 years.
[2022-08-21 10:50] VITALS: BP 118/83; PULSE 83; RESP 16
== END 2022-08-21 11:04 | disposition home or self-care (01) ==
LOC: ORWHC2ENDO 08:40
PROVIDERS: ATTEND Internal Medicine Gastroenterology
DX: Z12.11 Encounter for screening for malignant neoplasm of colon (principal); K57.30 Diverticulosis of large intestine without perforation or abscess without bleeding; D12.2 Benign neoplasm of ascending colon; D12.3 Benign neoplasm of transverse colon; Z87.19 Personal history of other diseases of the digestive system; Z98.890 Other specified postprocedural states
CPT/HCPCS: 88305; 45380; 45385; J2704; J2001

== ENCOUNTER 2023-09-12 10:52 | Emergency (ER) | payer MEDICARE ==
[2023-09-12] MEDS ORDERED: IPRATROPIUM-ALBUTEROL 3 ML NEB INHALATION STA (11:13)
[2023-09-12] MEDS ORDERED: methylPREDNISolone SOD SUCCI 125 MG/2 ML VIAL IV STA (11:13)
[2023-09-12 11:20] VITALS: TEMP 97.9
[2023-09-12 12:12] LABS: Basophils % (A) 1 %; Eosinophils % (A) 0 %; HCT 39.6 % (34.0-46.0); HGB 13.4 gm/dL (11.4-16.0); Lymphocytes # (A) 0.5 k/uL (1.0-4.8); Lymphocytes % (A) 9 %; MCH 33.1 pg (25.0-35.0); MCHC 33.8 g/dL (31.0-37.0); MCV 98.1 fL (80.0-100.0); Mean Platelet Volume 8.1; Monocytes # (A) 0.3 k/uL (0-1.0); Monocytes % (A) 6 %; Neutrophils # (A) 4.3 k/uL (1.3-7.7); Neutrophils % (A) 81 %; Platelet Count 263 k/uL (150-450); RBC 4.04 m/uL (3.80-5.40); RDW 13.1 % (11.5-15.5); WBC 5.3 k/uL (3.8-10.6)
[2023-09-12 12:15] LABS: Partial Thromboplastin Time 27.3 sec (22.0-30.0); Prothrombin Time 10.7 sec (10.0-12.5)
[2023-09-12 12:21] LABS: ALT 19 U/L (4-34); AST 22 U/L (14-36); African American GFR (CKD) >90 (>60 ml/min/1.73 sqM); Albumin 3.7 g/dL (3.5-5.0); Alkaline Phosphatase 86 U/L (38-126); Anion Gap 5 mmol/L; Blood Urea Nitrogen 10 mg/dL (7-17); Calcium 8.3 mg/dL (8.4-10.2); Carbon Dioxide 22 mmol/L (22-30); Chloride 108 mmol/L (98-107); Glucose 102 mg/dL (74-99); Non-African American GFR(CKD) 86 (>60 ml/min/1.73 sqM); Potassium 4.1 mmol/L (3.5-5.1); Sodium 135 mmol/L (137-145); Total Bilirubin 0.6 mg/dL (0.2-1.3); Total Protein 5.9 g/dL (6.3-8.2)
--- NOTE | 2023-09-12 12:24 | XR ---
EXAMINATION TYPE: XR chest 2V DATE OF EXAM: 09/12/2023 COMPARISON: 01/07/2022 HISTORY: 73 year-old female shortness of breath, difficulty breathing TECHNIQUE: AP and lateral views FINDINGS: Heart normal size. Tortuous/ectatic thoracic aorta. Hyperinflation. Density at the medial right base has a somewhat rounded appearance. Suspect prominent epicardial fat pad given stable appearance on th e lateral view. No consolidation or pleural effusion. IMPRESSION: 1. COPD. No acute process seen. 2. Density at the medial right base likely epicardial fat pad. However, slightly more rounded appeara nce than prior. Recommend outpatient CT follow-up to exclude any new nodularity here. 3. Ectatic thoracic aorta.
[2023-09-12 12:27] LABS: NT-Pro-B-Type Natriuretic Pept 406 pg/mL
[2023-09-12] MEDS ORDERED: ALBUTEROL HFA INHALER INHALATION STA (12:50)
--- NOTE | 2023-09-12 14:39 | ED ---
General Adult HPI - General Chief complaint: Shortness of Breath Stated complaint: DOMINIQUE Time Seen by Provider: 09/12/23 10:53 Source: patient, RN notes reviewed Mode of arrival: ambulatory Limitations: no limitations - History of Present Illness Initial comments: 73-year-old female presents emergency department to complaint of shortness of breath. Patient states she has COPD. Patient states she has increasing cough, congestion, body aches. Patient denies any chest pain or palpitation denies any back pain no flank pain. - Related Data Home Medications Medication Instructions Recorded Confirmed Budesonide/Formoterol Fumarate 2 puff INHALATION RT-BID 10/04/21 09/12/23 [Symbicort 160-4.5 Mcg Inhaler] Albuterol Nebulized [Ventolin 2.5 mg INHALATION RT-BID PRN 09/12/23 09/12/23 Nebulized] Albuterol Sulfate [Albuterol 2 puff INHALATION RT-QID PRN 09/12/23 09/12/23 Sulfate Hfa] Ipratropium Nebulized [Atrovent 0.5 mg INHALATION RT-QID PRN 09/12/23 09/12/23 Nebulized 0.2 MG/ML] Potassium Chloride ER [K-Dur 10] 10 meq PO DAILY 09/12/23 09/12/23 Rosuvastatin [Crestor] 10 mg PO DAILY 09/12/23 09/12/23 buPROPion [Wellbutrin] 75 mg PO BID 09/12/23 09/12/23 Previous Rx's Medication Instructions Recorded lisinopriL [Zestril] 5 mg PO DAILY #30 tab 09/08/18 Nirmatrelvir/Ritonavir [Paxlovid See Rx Instructions .ROUTE 09/12/23 2X150 mg-100 mg (Eua)] .COMPLEX #30 tab predniSONE 50 mg PO DAILY #5 tab 09/12/23 Allergies Allergy/AdvReac Type Severity Reaction Status Date / Time Penicillins Allergy Rash/Hives Verified 09/12/23 12:54 all over Sulfa (Sulfonamide Allergy tongue Verified 09/12/23 12:54 Antibiotics) swelling Review of Systems ROS Statement: Those systems with pertinent positive or pertinent negative responses have been documented in the HPI. ROS Other: All systems not noted in ROS Statement are negative. Past Medical History Past Medical History: COPD Additional Past Medical History / Comment(s): hx. colon polyps History of Any Multi-Drug Resistant Organisms: None Reported Past Surgical History: Tonsillectomy Additional Past Surgical History / Comment(s): catarat surg. kyphplasty, Past Anesthesia/Blood Transfusion Reactions: No Reported Reaction Past Psychological History: No Psychological Hx Reported Smoking Status: Former smoker - Past Family History Mother Family Medical History: No Reported History Additional Family Medical History / Comment(s): Mother from Alzheimer's dementia. Father Additional Family Medical History / Comment(s): Father from coronary artery disease. Sister(s) Additional Family Medical History / Comment(s): Patient has 2 sisters with no major medical problems. Patient does not have any brothers. Patient has one son with no major medical problems. General Exam Limitations: no limitations General appearance: alert, in no apparent distress Head exam: Present: atraumatic, normocephalic, normal inspection Eye exam: Present: normal appearance, PERRL, EOMI. Absent: scleral icterus, conjunctival injection, periorbital swelling ENT exam: Present: normal exam, normal oropharynx, mucous membranes moist Neck exam: Present: normal inspection, full ROM. Absent: tenderness, meningismus, lymphadenopathy Respiratory exam: Present: wheezes. Absent: normal lung sounds bilaterally, respiratory distress, rales, rhonchi, stridor Cardiovascular Exam: Present: normal rhythm, tachycardia, normal heart sounds. Absent: systolic murmur, diastolic murmur, rubs, gallop, clicks GI/Abdominal exam: Present: soft, normal bowel sounds. Absent: distended, tenderness, guarding, rebound, rigid Course Vital Signs 09/12/23 09/12/23 09/12/23 11:00 11:33 13:37 Temperature 97.9 F Pulse Rate 110 H 99 Respiratory 16 16 16 Rate Blood Pressure 114/79 107/58 O2 Sat by Pulse 94 L 95 Oximetry 09/12/23 13:43 Temperature Pulse Rate 104 H Respiratory 16 Rate Blood Pressure 111/74 O2 Sat by Pulse 95 Oximetry EKG Findings - EKG Comments: EKG Findings:: EKG performed at 11:05 sinus tachycardia rate of 109 WV 135/134 QT/QTC 354/418 - EKG Results: EKG: interpreted by [facility] Medical Decision Making - Medical Decision Making Was pt. sent in by a medical professional or institution (Dr., PA, STOCK HOUSE WORKER, urgent care, hospital, or snf...) When possible be specific @ -No Did you speak to anyone other than the patient for history (EMS, parent, family, police, friend...)? What history was obtained from this source @ -No Did you review nursing and triage notes (agree or disagree)? Why? @ -I reviewed and agree with nursing and triage notes Were old charts reviewed (outside hosp., previous admission, EMS record, old EKG, old radiological studies, urgent care reports/EKG's, snf records)? Report findings @ -No old charts were reviewed Differential Diagnosis (chest pain, altered mental status, abdominal pain women, abdominal pain men, vaginal bleeding, weakness, fever, dyspnea, syncope, headache, dizziness, GI bleed, back pain, seizure, CVA, palpatations, mental health, musculoskeletal)? @ -COVID 19, RSV, influenza, pneumonia, acute bronchitis, URI, this list is not all inclusive EKG interpreted by me (3pts min.). @ -As above X-rays interpreted by me (1pt min.). @ -Chest x-ray shows COPD changes, possible nodule CT interpreted by me (1pt min.). @ -None done U/S interpreted by me (1pt. min.). @ -None done What testing was considered but not performed or refused? (CT, X-rays, U/S, labs)? Why? @ -None What meds were considered but not given or refused? Why? @ -None Did you discuss the management of the patient with other professionals (professionals i.e. CARLOTTA Johnston, STOCK HOUSE WORKER, lab, RT, psych nurse, social and human services assistant, tractor engine assembler, teacher, commissioned police officer, caseworker)? Give summary @ -No Was smoking cessation discussed for >3mins.? @ -No Was critical care preformed (if so, how long)? @ -No Were there social determinants of health that impacted care today? How? (Homelessness, low income, unemployed, alcoholism, drug addiction, transportation, low edu. Level, literacy, decrease access to med. care, detention, rehab)? @ -No Was there de-escalation of care discussed even if they declined (Discuss DNR or withdrawal of care, Hospice)? DNR status @ -No What co-morbidities impacted this encounter? (DM, HTN, Smoking, COPD, CAD, Cancer, CVA, ARF, Chemo, Hep., AIDS, mental health diagnosis, sleep apnea, morbid obesity)? @ -[COPD Was patient admitted / discharged? Hospital course, mention meds given and route, prescriptions, significant lab abnormalities, going to OR and other pertinent info. @ -[Discharge patient Be COVID-19 Positive. Patient Has No Severe Hypoxia. Patient Is No Signs of Distress She Is Able to Ambulate with No Ambulatory Hypox ia. Patient Was Offered Admission States That She Feels Comfortable with Discharged with Steroids, Breathing Treatments and Paxlovid. Return Parameters Were Discussed. Undiagnosed new problem with uncertain prognosis? @ -No Drug Therapy requiring intensive monitoring for toxicity (Heparin, Nitro, Insulin, Cardizem)? @ -No Were any procedures done? @ -No Diagnosis/symptom? @ -COVID-19, COPD exacerbation Acute, or Chronic, or Acute on Chronic? @ -[Acute Uncomplicated (without systemic symptoms) or Complicated (systemic symptoms)? @ -[Complicated Side effects of treatment? @ -No Exacerbation, Progression, or Severe Exacerbation? @ -Exacerbation Poses a threat to life or bodily function? How? (Chest pain, USA, ND, pneumonia, PE, COPD, DKA, ARF, appy, cholecystitis, CVA, Diverticulitis, Homicidal, Suicidal, threat to staff... and all critical care pts) @ -[Yes possible, COPD - Lab Data Result diagrams: 09/12/23 11:23 09/12/23 11:23 Lab Results 09/12/23 09/12/23 09/12/23 Range/Units 11:23 11:23 11:23 WBC 5.3 (3.8-10.6) k/uL RBC 4.04 (3.80-5.40) m/uL Hgb 13.4 (11.4-16.0) gm/dL Hct 39.6 (34.0-46.0) % MCV 98.1 (80.0-100.0) fL MCH 33.1 (25.0-35.0) pg MCHC 33.8 (31.0-37.0) g/dL RDW 13.1 (11.5-15.5) % Plt Count 263 (150-450) k/uL MPV 8.1 Neutrophils % 81 % Lymphocytes % 9 % Monocytes % 6 % Eosinophils % 0 % Basophils % 1 % Neutrophils # 4.3 (1.3-7.7) k/uL Lymphocytes # 0.5 L (1.0-4.8) k/uL Monocytes # 0.3 (0-1.0) k/uL Eosinophils # 0.0 (0-0.7) k/uL Basophils # 0.0 (0-0.2) k/uL PT 10.7 (10.0-12.5) sec INR 1.0 (<1.2) APTT 27.3 (22.0-30.0) sec Sodium 135 L (137-145) mmol/L Potassium 4.1 (3.5-5.1) mmol/L Chloride 108 H (98-107) mmol/L Carbon Dioxide 22 (22-30) mmol/L Anion Gap 5 mmol/L BUN 10 (7-17) mg/dL Creatinine 0.68 (0.52-1.04) mg/dL Est GFR (CKD-EPI)AfAm >90 (>60 ml/min/1.73 sqM) Est GFR (CKD-EPI)NonAf 86 (>60 ml/min/1.73 sqM) Glucose 102 H (74-99) mg/dL Plasma Lactic Acid Tank (0.7-2.0) mmol/L Calcium 8.3 L (8.4-10.2) mg/dL Magnesium 2.0 (1.6-2.3) mg/dL Total Bilirubin 0.6 (0.2-1.3) mg/dL AST 22 (14-36) U/L ALT 19 (4-34) U/L Alkaline Phosphatase 86 (38-126) U/L Troponin I (0.000-0.034) ng/mL NT-Pro-B Natriuret Pep 406 pg/mL Total Protein 5.9 L (6.3-8.2) g/dL Albumin 3.7 (3.5-5.0) g/dL Influenza Type A (PCR) (Not Detectd) Influenza Type B (PCR) (Not Detectd) RSV (PCR) (Not Detectd) SARS-CoV-2 (PCR) (Not Detectd) 09/12/23 09/12/23 09/12/23 Range/Units 11:23 11:23 11:45 WBC (3.8-10.6) k/uL RBC (3.80-5.40) m/uL Hgb (11.4-16.0) gm/dL Hct (34.0-46.0) % MCV (80.0-100.0) fL MCH (25.0-35.0) pg MCHC (31.0-37.0) g/dL RDW (11.5-15.5) % Plt Count (150-450) k/uL MPV Neutrophils % % Lymphocytes % % Monocytes % % Eosinophils % % Basophils % % Neutrophils # (1.3-7.7) k/uL Lymphocytes # (1.0-4.8) k/uL Monocytes # (0-1.0) k/uL Eosinophils # (0-0.7) k/uL Basophils # (0-0.2) k/uL PT (10.0-12.5) sec INR (<1.2) APTT (22.0-30.0) sec Sodium (137-145) mmol/L Potassium (3.5-5.1) mmol/L Chloride (98-107) mmol/L Carbon Dioxide (22-30) mmol/L Anion Gap mmol/L BUN (7-17) mg/dL Creatinine (0.52-1.04) mg/dL Est GFR (CKD-EPI)AfAm (>60 ml/min/1.73 sqM) Est GFR (CKD-EPI)NonAf (>60 ml/min/1.73 sqM) Glucose (74-99) mg/dL Plasma Lactic Acid Tank 1.1 (0.7-2.0) mmol/L Calcium (8.4-10.2) mg/dL Magnesium (1.6-2.3) mg/dL Total Bilirubin (0.2-1.3) mg/dL AST (14-36) U/L ALT (4-34) U/L Alkaline Phosphatase (38-126) U/L Troponin I <0.012 (0.000-0.034) ng/mL NT-Pro-B Natriuret Pep pg/mL Total Protein (6.3-8.2) g/dL Albumin (3.5-5.0) g/dL Influenza Type A (PCR) Not Detected (Not Detectd) Influenza Type B (PCR) Not Detected (Not Detectd) RSV (PCR) Not Detected (Not Detectd) SARS-CoV-2 (PCR) Detected A (Not Detectd) Disposition Clinical Impression: COPD exacerbation, COVID-19 Disposition: HOME SELF-CARE Condition: Stable Instructions (If sedation given, give patient instructions): COVID-19 (Coronavirus Disease 2019) (ED) Additional Instructions: Please return to the Emergency Department if symptoms worsen or any other jose alejandro rns. Prescriptions: Nirmatrelvir/Ritonavir [Paxlovid 2X150 mg-100 mg (Eua)] See Rx Instructions .ROUTE .COMPLEX #30 tab predniSONE 50 mg PO DAILY #5 tab Is patient prescribed a controlled substance at d/c from ED?: No Referrals: Kevin Hernandez MD [Primary Care Provider] - 1-2 days Time of Disposition: 14:39
[2023-09-12 15:22] VITALS: BP 121/74; PULSE 99; RESP 18
== END 2023-09-12 15:08 | disposition home or self-care (01) ==
LOC: EC 10:52
DX: U07.1 COVID-19 (principal); J44.1 Chronic obstructive pulmonary disease with (acute) exacerbation; I45.10 Unspecified right bundle-branch block; Z87.891 Personal history of nicotine dependence; Z88.0 Allergy status to penicillin; Z88.2 Allergy status to sulfonamides
CPT/HCPCS: 99285; 96374; 36415; 94640; 93005; 83880; 80053; 83605; 83735; 84484; 85025; 85610; 85730; 87636; 71046; J2930

== ENCOUNTER → 2023-11-17 | Outpatient (CLI) | payer MEDICARE ==
[2023-11-17 11:32] LABS: African American GFR (CKD) >90 (>60 ml/min/1.73 sqM); Blood Urea Nitrogen 11 mg/dL (7-17); Non-African American GFR(CKD) 83 (>60 ml/min/1.73 sqM)
--- NOTE | 2023-11-17 12:16 | CT ---
EXAMINATION TYPE: CT chest w con DATE OF EXAM: 11/17/2023 COMPARISON: 02/17/2020 HISTORY: lung nodule CT DLP: 330.60 mGycm Automated exposure control for dose reduction was used. TECHNIQUE: CT scan of the chest is performed with IV Contrast, patient injected with 100ml mL of Isovue 300. TX P Images are created on CT scanner and reviewed. 3D reconstructed images are created on an [employer] workstation and reviewed. FINDINGS: There are marked emphysematous changes. There has been interval development of a small focal area of increasing reticular density in the right lung base which is most likely chronic interstitial change. There has been interval development of a 7 mm subpleural parenchymal nodule in the superior aspect of left lower lobe posteriorly. There is no airspace consolidation. There is no pleural effusion or pneumothorax. There is no mediastinal, hilar or axillary adenopathy. There is mild aneurysmal dilatation of the ascending thoracic aorta measures approximately 4 cm in di mension.. Limited scanning through the upper abdomen reveals no gross abnormality. No focal osseous lesions are seen. IMPRESSION: 1. Marked emphysematous changes. 2. Small focal area of interstitial changes in the right lung base most likely chronic interstitial c hange. 3. New 7 mm pleural-parenchymal nodule in the left upper lobe posteriorly. Lung BI-RADS Category 3. L ikely benign. Six-month follow-up CT thorax is recommended to confirm stability. 4. 4 cm aneurysmal dilatation of the ascending thoracic aorta.
== END | disposition home or self-care (01) ==
LOC: RADCTMAIN 10:51
PROVIDERS: ATTEND Internal Medicine Geriatric Medicine
DX: I71.21 Aneurysm of the ascending aorta, without rupture (principal); J43.9 Emphysema, unspecified; J98.4 Other disorders of lung; R91.1 Solitary pulmonary nodule
CPT/HCPCS: 82565; 84520; 71260; 36415; Q9967

== ENCOUNTER 2023-11-24 11:07 | Inpatient (IN) | payer MEDICARE ==
--- NOTE | 2023-11-24 12:13 | ED ---
General Adult HPI - General Source: patient, RN notes reviewed Mode of arrival: wheelchair Limitations: no limitations <Esteban Cordova - Last Filed: 11/24/23 12:12> <Yonatan Tipton - Last Filed: 11/24/23 15:25> - General Chief complaint: Shortness of Breath Stated complaint: SOB Time Seen by Provider: 11/24/23 11:26 - History of Present Illness Initial comments: Quick [id number] female presents emergency department chief complaint of shortness of breath, weakness. She states that she has had increasing dyspnea she has known COPD sees Dr. Minor. She states that her breathing seems to be getting worse. She also states that she has increasing leg weakness, generalized weakness. Denies any focal weakness (Esteban Cordova) 73-year-old female history of COPD presenting with 1 week of productive cough and increased dyspnea. Patient denies fever. Denies central chest pain. Patient is not on home oxygen. She is currently on albuterol and Symbicort. (Yonatan Tipton) - Related Data Home Medications Medication Instructions Recorded Confirmed Budesonide/Formoterol Fumarate 2 puff INHALATION RT-BID 10/04/21 11/24/23 [Symbicort 160-4.5 Mcg Inhaler] Albuterol Sulfate [Albuterol 2 puff INHALATION RT-QID PRN 09/12/23 11/24/23 Sulfate Hfa] Potassium Chloride ER [K-Dur 10] 10 meq PO DAILY 09/12/23 11/24/23 Rosuvastatin [Crestor] 10 mg PO DAILY 09/12/23 11/24/23 buPROPion [Wellbutrin] 75 mg PO BID 09/12/23 11/24/23 Previous Rx's Medication Instructions Recorded lisinopriL [Zestril] 5 mg PO DAILY #30 tab 09/08/18 Allergies Allergy/AdvReac Type Severity Reaction Status Date / Time Penicillins Allergy Rash/Hives Verified 11/24/23 14:43 all over Sulfa (Sulfonamide Allergy tongue Verified 11/24/23 14:43 Antibiotics) swelling Review of Systems ROS Other: All systems not noted in ROS Statement are negative. <Esteban Cordova - Last Filed: 11/24/23 12:12> ROS Other: All systems not noted in ROS Statement are negative. <Yonatan Tipton N - Last Filed: 11/24/23 15:25> ROS Statement: Those systems with pertinent positive or pertinent negative responses have been documented in the HPI. Past Medical History Past Medical History: COPD Additional Past Medical History / Comment(s): hx. colon polyps History of Any Multi-Drug Resistant Organisms: None Reported Past Surgical History: Tonsillectomy Additional Past Surgical History / Comment(s): catarat surg. kyphplasty, Past Anesthesia/Blood Transfusion Reactions: No Reported Reaction Past Psychological History: No Psychological Hx Reported Smoking Status: Former smoker - Past Family History Mother Family Medical History: No Reported History Additional Family Medical History / Comment(s): Mother from Alzheimer's dementia. Father Additional Family Medical History / Comment(s): Father from coronary artery disease. Sister(s) Additional Family Medical History / Comment(s): Patient has 2 sisters with no major medical problems. Patient does not have any brothers. Patient has one son with no major medical problems. <Esteban Cordova M - Last Filed: 11/24/23 12:12> General Exam Limitations: no limitations <Esteban Cordova M - Last Filed: 11/24/23 12:12> General appearance: alert, in no apparent distress Head exam: Present: atraumatic Eye exam: Present: normal appearance, PERRL ENT exam: Present: normal exam Neck exam: Present: normal inspection. Absent: tenderness, meningismus Respiratory exam: Present: respiratory distress, decreased breath sounds. Absent: wheezes Cardiovascular Exam: Present: regular rate, normal rhythm GI/Abdominal exam: Present: soft. Absent: distended, tenderness Extremities exam: Present: normal capillary refill, pedal edema. Absent: calf tenderness Neurological exam: Present: alert, oriented X3, CN II-XII intact. Absent: motor sensory deficit Psychiatric exam: Present: normal affect, normal mood Skin exam: Present: warm, dry, intact. Absent: cyanosis, diaphoretic <Yonatan Tipton - Last Filed: 11/24/23 15:25> - General Exam Comments Initial Comments: Visual Physical Exam Vital signs reviewed General: Well-appearing, nontoxic, no acute distress. Head: Normocephalic, atraumatic Eyes: PERRLA, EOMI ENT: Airway patent Chest: Nonlabored breathing Skin: No visual rash, normal skin tone Neuro: Alert and oriented 3 Musculoskeletal: No gross abnormalities (Esteban Cordova) Course Vital Signs 11/24/23 11/24/23 11/24/23 11:08 14:30 14:43 Temperature 97.4 F L Pulse Rate 108 H 95 96 Respiratory 26 H Rate Blood Pressure 106/72 O2 Sat by Pulse 95 Oximetry 11/24/23 11/24/23 14:47 15:03 Temperature Pulse Rate 98 98 Respiratory 20 Rate Blood Pressure 112/77 O2 Sat by Pulse 98 Oximetry Medical Decision Making <Esteban Cordova - Last Filed: 11/24/23 12:12> - Lab Data Result diagrams: 11/24/23 12:14 11/24/23 12:14 <Yonatan Tipton - Last Filed: 11/24/23 15:25> - Medical Decision Making I completed the quick note portion of this chart signed Esteban Cordova PA-C (Esteban Cordova) Was pt. sent in by a medical professional or institution ([facility], [employer], urgent care, hospital, or usp...) When possible be specific @ -No Did you speak to anyone other than the patient for history (EMS, parent, family, police, friend...)? What history was obtained from this source @ -No Did you review nursing and triage notes (agree or disagree)? Why? @ -I reviewed and agree with nursing and triage notes Were old charts reviewed (outside hosp., previous admission, EMS record, old EKG , old radiological studies, urgent care reports/EKG's, usp records)? Report findings @ -No old charts were reviewed Differential Diagnosis (chest pain, altered mental status, abdominal pain women, abdominal pain men, vaginal bleeding, weakness, fever, dyspnea, syncope, headache, dizziness, GI bleed, back pain, seizure, CVA, palpatations, mental health, musculoskeletal)? @ -Differential Dyspnea: Coronary syndrome, arrhythmia, tamponade, asthma, COPD, pulmonary embolism, pneumonia, pneumothorax, pulmonary effusion, anaphylaxis, diabetic ketoacidosis, flailed chest, pulmonary contusion, diaphragmatic rupture, anemia, neuromuscular, this is not meant to be an all-inclusive list. EKG interpreted by me (3pts min.). @ -[EKG: Sinus rhythm rate of 95, OR interval 144, QRS duration 94, QTc [address] segment elevation X-rays interpreted by me (1pt min.). @Chest x-ray right middle lung infiltrate and left lower lobe infiltrate consistent with pneumonia. CT interpreted by me (1pt min.). @ -None done U/S interpreted by me (1pt. min.). @ -None done What testing was considered but not performed or refused? (CT, X-rays, U/S, labs)? Why? @ -None What meds were considered but not given or refused? Why? @ -None Did you discuss the management of the patient with other professionals (professionals i.e. Dr., PA, [employer], lab, RT, psych nurse, social work coordinator, double end production grinder, teacher, patrol officer, shelter case manager)? Give summary @ -Patient discussed with Dr. Garner who will admit Was smoking cessation discussed for >3mins.? @ -No Was critical care preformed (if so, how long)? @Yes, 35 minutes Were there social determinants of health that impacted care today? How? (Homelessness, low income, unemployed, alcoholism, drug addiction, transportation, low edu. Level, literacy, decrease access to med. care, skilled nursing, rehab)? @ -No Was there de-escalation of care discussed even if they declined (Discuss DNR or withdrawal of care, Hospice)? DNR status @ -No What co-morbidities impacted this encounter? (DM, HTN, Smoking, COPD, CAD, Cancer, CVA, ARF, Chemo, Hep., AIDS, mental health diagnosis, sleep apnea, morbid obesity)? @ -[COPD Was patient admitted / discharged? Hospital course, mention meds given and route, prescriptions, significant lab abnormalities, going to OR and other pertinent info. @ -73-year-old female with 1 week of cough and dyspnea history of COPD. She is tachypneic with decreased air entry bilaterally upon arrival. Afebrile. Chest x-ray concerning for bilateral pneumonia. Patient has an elevated white blood cell count. She has EKG showing sinus rhythm without ST segment changes. Elevated platelets. Blood cultures are obtained patient is initiated on antibiotics in addition to IV steroids and albuterol and Atrovent. Her viral panel is negative. She does have elevated troponin and this level will be trended. I suspect this is from demand. No active chest pain. Cardiology and pulmonology placed on consult. Undiagnosed new problem with uncertain prognosis? @ -[No Drug Therapy requiring intensive monitoring for toxicity (Heparin, Nitro, Insulin, Cardizem)? @ -No Were any procedures done? @ -No Diagnosis/symptom? @ -COPD exacerbation, pneumonia, troponin elevation Acute, or Chronic, or Acute on Chronic? @Acute Uncomplicated (without systemic symptoms) or Complicated (systemic symptoms)? @ -Default Side effects of treatment? @ -No Exacerbation, Progression, or Severe Exacerbation? @ -No Poses a threat to life or bodily function? How? (Chest pain, USA, MD, pneumonia, PE, COPD, DKA, ARF, appy, cholecystitis, CVA, Diverticulitis, Homicidal, Suicidal, threat to staff... and all critical care pts) @ -Yes, COPD, pneumonia, sepsis, ACS (Yonatan Tipton) - Lab Data Lab Results 11/24/23 11/24/23 11/24/23 Range/Units 12:14 12:14 12:14 WBC 12.7 H (3.8-10.6) k/uL RBC 4.18 (3.80-5.40) m/uL Hgb 13.8 (11.4-16.0) gm/dL Hct 42.6 (34.0-46.0) % MCV 101.8 H (80.0-100.0) fL MCH 33.1 (25.0-35.0) pg MCHC 32.5 (31.0-37.0) g/dL RDW 12.4 (11.5-15.5) % Plt Count 518 H (150-450) k/uL MPV 7.7 Neutrophils % 91 % Lymphocytes % 4 % Monocytes % 2 % Eosinophils % 0 % Basophils % 1 % Neutrophils # 11.6 H (1.3-7.7) k/uL Lymphocytes # 0.5 L (1.0-4.8) k/uL Monocytes # 0.3 (0-1.0) k/uL Eosinophils # 0.0 (0-0.7) k/uL Basophils # 0.1 (0-0.2) k/uL PT 10.0 (10.0-12.5) sec INR 0.9 (<1.2) APTT 28.2 (22.0-30.0) sec Sodium 138 (137-145) mmol/L Potassium 3.4 L (3.5-5.1) mmol/L Chloride 100 (98-107) mmol/L Carbon Dioxide 28 (22-30) mmol/L Anion Gap 10 mmol/L BUN 25 H (7-17) mg/dL Creatinine 0.55 (0.52-1.04) mg/dL Est GFR (CKD-EPI)AfAm >90 (>60 ml/min/1.73 sqM) Est GFR (CKD-EPI)NonAf >90 (>60 ml/min/1.73 sqM) Glucose 110 H (74-99) mg/dL Plasma Lactic Acid Tank (0.7-2.0) mmol/L Calcium 8.6 (8.4-10.2) mg/dL Magnesium 2.4 H (1.6-2.3) mg/dL Total Bilirubin 0.7 (0.2-1.3) mg/dL AST 21 (14-36) U/L ALT 18 (4-34) U/L Alkaline Phosphatase 128 H (38-126) U/L Troponin I (0.000-0.034) ng/mL NT-Pro-B Natriuret Pep pg/mL Total Protein 6.0 L (6.3-8.2) g/dL Albumin 3.3 L (3.5-5.0) g/dL Influenza Type A (PCR) (Not Detectd) Influenza Type B (PCR) (Not Detectd) RSV (PCR) (Not Detectd) SARS-CoV-2 (PCR) (Not Detectd) 11/24/23 11/24/23 11/24/23 Range/Units 12:14 12:14 12:14 WBC (3.8-10.6) k/uL RBC (3.80-5.40) m/uL Hgb (11.4-16.0) gm/dL Hct (34.0-46.0) % MCV (80.0-100.0) fL MCH (25.0-35.0) pg MCHC (31.0-37.0) g/dL RDW (11.5-15.5) % Plt Count (150-450) k/uL MPV Neutrophils % % Lymphocytes % % Monocytes % % Eosinophils % % Basophils % % Neutrophils # (1.3-7.7) k/uL Lymphocytes # (1.0-4.8) k/uL Monocytes # (0-1.0) k/uL Eosinophils # (0-0.7) k/uL Basophils # (0-0.2) k/uL PT (10.0-12.5) sec INR (<1.2) APTT (22.0-30.0) sec Sodium (137-145) mmol/L Potassium (3.5-5.1) mmol/L Chloride (98-107) mmol/L Carbon Dioxide (22-30) mmol/L Anion Gap mmol/L BUN (7-17) mg/dL Creatinine (0.52-1.04) mg/dL Est GFR (CKD-EPI)AfAm (>60 ml/min/1.73 sqM) Est GFR (CKD-EPI)NonAf (>60 ml/min/1.73 sqM) Glucose (74-99) mg/dL Plasma Lactic Acid Tank (0.7-2.0) mmol/L Calcium (8.4-10.2) mg/dL Magnesium (1.6-2.3) mg/dL Total Bilirubin (0.2-1.3) mg/dL AST (14-36) U/L ALT (4-34) U/L Alkaline Phosphatase (38-126) U/L Troponin I 0.058 H* (0.000-0.034) ng/mL NT-Pro-B Natriuret Pep 1820 pg/mL Total Protein (6.3-8.2) g/dL Albumin (3.5-5.0) g/dL Influenza Type A (PCR) Not Detected (Not Detectd) Influenza Type B (PCR) Not Detected (Not Detectd) RSV (PCR) Not Detected (Not Detectd) SARS-CoV-2 (PCR) Not Detected (Not Detectd) 11/24/23 Range/Units 12:55 WBC (3.8-10.6) k/uL RBC (3.80-5.40) m/uL Hgb (11.4-16.0) gm/dL Hct (34.0-46.0) % MCV (80.0-100.0) fL MCH (25.0-35.0) pg MCHC (31.0-37.0) g/dL RDW (11.5-15.5) % Plt Count (150-450) k/uL MPV Neutrophils % % Lymphocytes % % Monocytes % % Eosinophils % % Basophils % % Neutrophils # (1.3-7.7) k/uL Lymphocytes # (1.0-4.8) k/uL Monocytes # (0-1.0) k/uL Eosinophils # (0-0.7) k/uL Basophils # (0-0.2) k/uL PT (10.0-12.5) sec INR (<1.2) APTT (22.0-30.0) sec Sodium (137-145) mmol/L Potassium (3.5-5.1) mmol/L Chloride (98-107) mmol/L Carbon Dioxide (22-30) mmol/L Anion Gap mmol/L BUN (7-17) mg/dL Creatinine (0.52-1.04) mg/dL Est GFR (CKD-EPI)AfAm (>60 ml/min/1.73 sqM) Est GFR (CKD-EPI)NonAf (>60 ml/min/1.73 sqM) Glucose (74-99) mg/dL Plasma Lactic Acid Tank 1.7 (0.7-2.0) mmol/L Calcium (8.4-10.2) mg/dL Magnesium (1.6-2.3) mg/dL Total Bilirubin (0.2-1.3) mg/dL AST (14-36) U/L ALT (4-34) U/L Alkaline Phosphatase (38-126) U/L Troponin I (0.000-0.034) ng/mL NT-Pro-B Natriuret Pep pg/mL Total Protein (6.3-8.2) g/dL Albumin (3.5-5.0) g/dL Influenza Type A (PCR) (Not Detectd) Influenza Type B (PCR) (Not Detectd) RSV (PCR) (Not Detectd) SARS-CoV-2 (PCR) (Not Detectd) Critical Care Time Critical Care Time: Yes Total Critical Care Time: 35 <Yonatan Tipton - Last Filed: 11/24/23 15:25> Disposition <Dedoe,Esteban M - Last Filed: 11/24/23 12:12> Is patient prescribed a controlled substance at d/c from ED?: No Time of Disposition: 15:05 <Yonatan Tipton - Last Filed: 11/24/23 15:25> Clinical Impression: COPD exacerbation, Pneumonia, Troponin level elevated Disposition: ADMITTED IP TO THIS HOSP Condition: Stable Referrals: Kevin Hernandez MD [Primary Care Provider] - 1-2 days
[2023-11-24 12:46] LABS: Basophils # (A) 0.1 k/uL (0-0.2); Basophils % (A) 1 %; Eosinophils % (A) 0 %; HCT 42.6 % (34.0-46.0); HGB 13.8 gm/dL (11.4-16.0); Lymphocytes # (A) 0.5 k/uL (1.0-4.8); Lymphocytes % (A) 4 %; MCH 33.1 pg (25.0-35.0); MCHC 32.5 g/dL (31.0-37.0); MCV 101.8 fL (80.0-100.0); Mean Platelet Volume 7.7; Monocytes # (A) 0.3 k/uL (0-1.0); Monocytes % (A) 2 %; Neutrophils # (A) 11.6 k/uL (1.3-7.7); Neutrophils % (A) 91 %; Platelet Count 518 k/uL (150-450); RBC 4.18 m/uL (3.80-5.40); RDW 12.4 % (11.5-15.5); WBC 12.7 k/uL (3.8-10.6)
[2023-11-24 12:59] LABS: ALT 18 U/L (4-34); AST 21 U/L (14-36); Albumin 3.3 g/dL (3.5-5.0); Alkaline Phosphatase 128 U/L (38-126); Anion Gap 10 mmol/L; Blood Urea Nitrogen 25 mg/dL (7-17); Calcium 8.6 mg/dL (8.4-10.2); Carbon Dioxide 28 mmol/L (22-30); Chloride 100 mmol/L (98-107); Glucose 110 mg/dL (74-99); INR 0.9 (<1.2); Magnesium 2.4 mg/dL (1.6-2.3); Potassium 3.4 mmol/L (3.5-5.1); Sodium 138 mmol/L (137-145); Total Bilirubin 0.7 mg/dL (0.2-1.3)
[2023-11-24 13:00] LABS: Partial Thromboplastin Time 28.2 sec (22.0-30.0)
[2023-11-24] MEDS: methylPREDNISolone SOD SUCCI 125 MG/2 ML VIAL IV STA (13:03)
--- NOTE | 2023-11-24 13:19 | XR ---
EXAMINATION TYPE: XR chest 2V DATE OF EXAM: 11/24/2023 COMPARISON: 09/12/2023 INDICATION: Difficulty breathing TECHNIQUE: Frontal and lateral views of the chest are obtained. FINDINGS: The heart size is normal. The pulmonary vasculature is normal. Within the periphery of the right midlung is a minimal infiltrate. Some minimal infiltrate may be reymundo ng the left heart border and left lower lobe. Correlate for pneumonia. There is a nodularity along the medial right hemidiaphragm present previously. IMPRESSION: 1. Peripheral right mid lung and left lower lung field infiltrates. Correlate for atelectasis or pneu monia.
[2023-11-24 14:01] LABS: African American GFR (CKD) >90 (>60 ml/min/1.73 sqM); Non-African American GFR(CKD) >90 (>60 ml/min/1.73 sqM)
[2023-11-24] MEDS: ALBUTEROL NEBULIZED 2.5 MG/3 ML INHALATION STA (14:29)
[2023-11-24] MEDS: IPRATROPIUM 0.5 MG/2.5 ML NEBU INHALATION STA (14:30)
[2023-11-24] MEDS ORDERED: IPRATROPIUM-ALBUTEROL 3 ML NEB INHALATION PRN (15:20)
[2023-11-24] MEDS ORDERED: ACETAMINOPHEN TAB 325 MG TAB PO PRN (15:20)
[2023-11-24] MEDS ORDERED: NALOXONE 0.4 MG/ML 1 ML VIAL IVP PRN (15:20)
[2023-11-24] MEDS: AZITHROMYCIN 500 MG in SODIUM CHLORIDE 0.9% 250 ML IVPB STA (15:28)
[2023-11-24] MEDS: ASPIRIN 325 MG TAB PO STA (15:28)
[2023-11-24] MEDS: IPRATROPIUM-ALBUTEROL 3 ML NEB INHALATION SCH (15:43)
[2023-11-24] MEDS: SODIUM CHLORIDE 0.9% 1,000 ML IV SCH (15:49)
[2023-11-24] MEDS: methylPREDNISolone SOD SUCCI 125 MG/2 ML VIAL IV SCH (18:19)
[2023-11-24 20:44] LABS: Glucose,Whole Blood 157 mg/dL (70-110)
[2023-11-24] MEDS ORDERED: ALBUTEROL HFA INHALER INHALATION PRN (21:15)
[2023-11-24] MEDS ORDERED: DEXTROSE 50% SYRINGE 50 ML IVP PRN ×2 (21:16)
[2023-11-24] MEDS: buPROPion 75 MG TAB PO SCH (21:40)
--- NOTE | 2023-11-24 23:46 | P.HPIM ---
History of Present Illness H&P Date: 11/24/23 HISTORY OF PRESENT ILLNESS: 73-year-old one of my office patient well-known for long time with past medical history of COPD, mild arrhythmia, history of hypertension, hyperlipidemia, chronic osteoarthritis, chronic vascular cellulitis, mild hyperglycemia, who is known to have advanced COPD with remote history of smoking for long time adequate close to 2 years ago. She was hospitalized last time in December 2021 with COPD exacerbation and severe dyspnea with shortness of breath and has done well. She has been seen pulmonary, cardiology and our service on more regular basis and has been doing well. According to patient developed to have much worsening shortness of breath with dyspnea with minimal exertion for the last 2 weeks become significantly worse last few days that she was not able to stand up and walk has been falling many times she developed to have significant weakness in the upper part of her body. For the last few days developed to have worsening shortness of breath with cough productive of yellow phlegm with low-grade temperature 99.9 with significant expiratory expiratory wheezes patient become more bedbound and started having slight change in mental status with mild confusion. She ended up coming to the emergency department at [facility] where was seen and evaluated, original EKG showed mild tachycardia with no major change. Her troponin came back mildly elevated. White blood cell was 12,700 with left shifted platelet count 518, normal PT/INR electrolyte with mildly hypokalemia slightly elevated blood sugar at 157 with magnesium of 2.4. BNP was 1820 with COVID, influenza and RSV are all negative. Chest x-ray showed peripheral right midlung and left lower field infiltrate correlate with atelectasis versus pneumonia with sign of COPD. Patient was started on O2, updraft treatment on the clock, Solu-Medrol, Rocephin and azithromycin and admit patient to the hospital at this point. REVIEW OF SYSTEMS Constitutional: No fever, no chills, no night sweats. No weight change. No weakness, fatigue or lethargy. No daytime sleepiness. EENT: No headache. No blurred vision or double vision, no loss of vision. No loss of Hearing, no ringing in the ears, no dizziness. No nasal drainage or congestion. No epistaxis. No sore throat. Lungs: Reports shortness of breath, cough, no sputum production. Reports wheezing. Cardiovascular: No chest pain, no lower extremity edema. No palpitations. No paroxysmal nocturnal dyspnea. No orthopnea. No lightheadedness or dizziness. No syncopal episodes. Abdominal: No abdominal pain. No nausea, vomiting. No diarrhea. No constipa tion. No bloody or tarry stools. No loss of appetite. Genitourinary: No dysuria, increased frequency, urgency. No urinary retention. Musculoskeletal: No myalgias. No muscle weakness, no gait dysfunction, no frequent falls. No back pain. No neck pain. Integumentary: No wounds, no lesions. No rash or pruritus. No unusual bruising. No change in hair or nails. Neurologic: No aphasia. No facial droop. No change in mentation. No head injury. No headache. No paralysis. No paresthesia. Psychiatric: No depression. No anxiety. No mood swings. Endocrine: No abnormal blood sugars. No weight change. No excessive sweating or thirst. No cold intolerance. SOCIAL HISTORY Patient was a smoker of greater than 1 pack per day for 30 years and quit in 2018 for brief period. She has smoked on and off and recently picked up in AprilMay 2020. Patient drinks 2 beers every day. She denies having any withdrawal symptoms or seizure activity from this. She lives at home with her . She does not have a nebulizer. No CPAP. No oxygen. She is retired from [employer] and May 2018. FAMILY HISTORY Mother at age 84 from Alzheimer's dementia. Father at age 70 from a myocardial infarction. Patient has 2 sisters one has passed from diabetes, occasions. One is living with no major medical problems. Patient does not have any brothers. She has one son with no major medical problems. PHYSICAL EXAMINATION Gen: This is a 70-year-old female. She is resting in bed and appears to be comfortable. No acute respiratory distress noted. HEENT: Head is atraumatic, normocephalic. Pupils equal, round. Sclerae is anicteric. NECK: Supple. No JVD. No lymphadenopathy. No thyromegaly. LUNGS: Bilateral expiratory wheeze and rhonchiClear to auscultation. No wheezes or rhonchi. No intercostal retractions. HEART: Regular rate and rhythm. No murmur. ABDOMEN: Soft. Bowel sounds are present. No masses. No tenderness. EXTREMITIES: No pedal edema. No calf tenderness. NEUROLOGICAL: Patient is awake, alert and oriented with slight confusion. Cranial nerves 2 through 12 are grossly intact. Has been able to do any gait exam. ASSESSMENT AND PLAN: _Acute on chronic respiratory failure: Secondary to severe COPD, hypoxia, bilateral pneumonia, with most likely generalized myalgia. Will continue O2, updraft, steroid, pulmonary consultation. _COPD exacerbation: Will continue albuterol/ipratropium along with Pulmicort, Solu-Medrol 125 mg was giving then 60 mg every 6 hours, titrate O2 try to keep pulse ox above 92 percentile. _Acute severe bilateral pneumonia, with right middle lobe and left lower lobe, ER started patient on Rocephin and azithromycin which is reasonable coverage at this point we will continue current medication for any reason patient continued to be more symptomatic will expand coverage to cover gram-negative and cover patient for aspiration as well. _Severe myalgia: Etiology patient has been on rosuvastatin which can be playing a side effect will take patient off rosuvastatin for now and steroid might help resolve symptoms. _Mildly elevated troponin with possible non-ST IN type II: Consult cardiology, CT with troponin x 3 will be done repeat EKG in the morning. _Hypertension: Was on Zestril 5 mg a day titrate dose higher try to keep systolic blood pressure below 140. _Hyperlipidemia: Was on rosuvastatin 10 mg a day with a significant complaint of myalgia continue to be off rosuvastatin for now. _Chronic depression and help with smoking cessation: Patient remain on Wellbutrin 75 mg twice a day resume medication. _Hypokalemia:_Continue potassium replacement therapy for now. _Hyperglycemia: Continue Accu-Chek with sliding scale coverage. _GI prophylaxis: Pepcid 20 mg daily will be done. _DVT prophylaxis: Will be on Lovenox 40 mg subcutaneous daily. CODE STATUS: Full code. Admit patient to the inpatient service for more than 2 night stay. Past Medical History Past Medical History: COPD Additional Past Medical History / Comment(s): hx. colon polyps History of Any Multi-Drug Resistant Organisms: None Reported Past Surgical History: Tonsillectomy Additional Past Surgical History / Comment(s): catarat surg. kyphplasty, Past Anesthesia/Blood Transfusion Reactions: No Reported Reaction Past Psychological History: No Psychological Hx Reported Smoking Status: Former smoker - Past Family History Mother Family Medical History: No Reported History Additional Family Medical History / Comment(s): Mother from Alzheimer's dementia. Father Additional Family Medical History / Comment(s): Father from coronary artery disease. Sister(s) Additional Family Medical History / Comment(s): Patient has 2 sisters with no major medical problems. Patient does not have any brothers. Patient has one son with no major medical problems. Medications and Allergies Home Medications Medication Instructions Recorded Confirmed Type lisinopriL [Zestril] 5 mg PO DAILY #30 tab 09/08/18 11/24/23 Rx Budesonide/Formoterol Fumarate 2 puff INHALATION RT-BID 10/04/21 11/24/23 History [Symbicort 160-4.5 Mcg Inhaler] Albuterol Sulfate [Albuterol 2 puff INHALATION RT-QID PRN 09/12/23 11/24/23 History Sulfate Hfa] Potassium Chloride ER [K-Dur 10] 10 meq PO DAILY 09/12/23 11/24/23 History Rosuvastatin [Crestor] 10 mg PO DAILY 09/12/23 11/24/23 History buPROPion [Wellbutrin] 75 mg PO BID 09/12/23 11/24/23 History Allergies Allergy/AdvReac Type Severity Reaction Status Date / Time Penicillins Allergy Rash/Hives Verified 11/24/23 14:43 all over Sulfa (Sulfonamide Allergy tongue Verified 11/24/23 14:43 Antibiotics) swelling Physical Exam Vitals: Vital Signs Temp Pulse Resp BP Pulse Ox 11/24/23 18:23 99 22 123/78 92 L 11/24/23 15:51 97.8 F 11/24/23 15:03 98 11/24/23 14:47 98 20 112/77 98 11/24/23 14:43 96 11/24/23 14:30 95 11/24/23 11:08 97.4 F L 108 H 26 H 106/72 95 Intake and Output 11/24/23 11/24/23 11/24/23 06:59 14:59 22:59 Other: Weight 72.575 kg Results CBC & Chem 7: 11/24/23 12:14 11/24/23 12:14 Labs: Abnormal Lab Results - Last 24 Hours (Table) 04/09/1711/24/23 11/24/23 Range/Units 12:14 12:14 12:14 WBC 12.7 H (3.8-10.6) k/uL MCV 101.8 H (80.0-100.0) fL Plt Count 518 H (150-450) k/uL Neutrophils # 11.6 H (1.3-7.7) k/uL Lymphocytes # 0.5 L (1.0-4.8) k/uL Potassium 3.4 L (3.5-5.1) mmol/L BUN 25 H (7-17) mg/dL Glucose 110 H (74-99) mg/dL Magnesium 2.4 H (1.6-2.3) mg/dL Alkaline Phosphatase 128 H (38-126) U/L Troponin I 0.058 H* (0.000-0.034) ng/mL Total Protein 6.0 L (6.3-8.2) g/dL Albumin 3.3 L (3.5-5.0) g/dL 11/24/23 Range/Units 15:38 WBC (3.8-10.6) k/uL MCV (80.0-100.0) fL Plt Count (150-450) k/uL Neutrophils # (1.3-7.7) k/uL Lymphocytes # (1.0-4.8) k/uL Potassium (3.5-5.1) mmol/L BUN (7-17) mg/dL Glucose (74-99) mg/dL Magnesium (1.6-2.3) mg/dL Alkaline Phosphatase (38-126) U/L Troponin I 0.039 H* (0.000-0.034) ng/mL Total Protein (6.3-8.2) g/dL Albumin (3.5-5.0) g/dL
[2023-11-25 06:17] LABS: Glucose,Whole Blood 124 mg/dL (70-110)
[2023-11-25] MEDS: INSULIN ASPART (NovoLOG) 100 UNIT/ML VIAL SQ SCH (06:31)
--- NOTE | 2023-11-25 06:44 | P.CNPUL ---
History of Present Illness Consult date: 11/25/23 Requesting physician: Yonatan Tipton Reason for consult: COPD Chief complaint: Acute on chronic shortness of breath History of present illness: Patient is a 73-year-old white female with past medical history significant for severe COPD, hyperlipidemia, hypertension, and former tobacco dependence. Her primary care provider is Dr. Hernandez. She does follow in the pulmonary office with Dr. Chandra for management of her severe chronic obstructive pulmonary disease. She has an FEV1 42% of predicted. She is maintained on a combination of Symbicort and as needed albuterol inhalers. Patient presented to the emergency room yesterday afternoon complaining acute on chronic shortness of breath. She is also had an associated nonproductive cough, sore throat, and hoarse voice. She denies sick contacts. She does have recent history of acute COVID infection in August,. She states that she never completely recovered from this, but is particularly worse since last Friday. She has had a chest CT with contrast on 11/17/2023 which showed marked emphysematous changes. Small focal area of interstitial changes in the right lung base, mostly likely chronic interstitial changes. New 7 mm pleural/parenchymal nodule in the left upper lobe posteriorly, likely benign. 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 Patient is currently sitting up in bed, on 2 L /min nasal cannula, in no acute distress. Chest x-ray this admission showed a peripheral right midlung and left lower lung field infiltrates. Possible atelectasis versus developing pneumonia. Negative for influenza, RSV, COVID. CBC includes a WBC count of 12.7, hemoglobin 13.8, hematocrit 42.6, platelets 518. BMP unremarkable. Normal saline infusing at 75 ml/hr. Troponins are elevated, but trending down, most recent result 0.019. NT proBNP 1820. Afebrile. Nontoxic appearance. Vital signs are stable. Review of Systems REVIEW OF SYSTEMS: CONSTITUTIONAL: Denies any recent significant weight loss or weight gain. Denies fever. EYES: Denies change in vision. EARS, NOSE, MOUTH, THROAT: Denies headaches. Admits sore throat and voice hoarseness CARDIOVASCULAR: Denies chest pain, palpitations or syncopal episodes. RESPIRATORY: Admits shortness of breath worse than baseline, and a productive cough with brown sputum. denies hemoptysis or chest pain. GASTROINTESTINAL: Denies change in appetite, abdominal pain, nausea and vomiting, or diarrhea GENITOURINARY: Denies hematuria, denies infections. MUSKULOSKELETAL: Denies pain, denies swelling. INTEGUMENTARY: Denies rash, denies eczema. NEUROLOGICAL: Denies recent memory loss, no recent seizure activity. PSYCHIATRIC: Denies anxiety, denies depression. HEMATOLOGIC/LYMPHATIC: Denies anemia, denies enlarged lymph node Past Medical History Past Medical History: COPD Additional Past Medical History / Comment(s): hx. colon polyps History of Any Multi-Drug Resistant Organisms: None Reported Past Surgical History: Tonsillectomy Additional Past Surgical History / Comment(s): catarat surg. kyphplasty, Past Anesthesia/Blood Transfusion Reactions: No Reported Reaction Past Psychological History: No Psychological Hx Reported Smoking Status: Former smoker - Past Family History Mother Family Medical History: No Reported History Additional Family Medical History / Comment(s): Mother from Alzheimer's dementia. Father Additional Family Medical History / Comment(s): Father from coronary artery disease. Sister(s) Additional Family Medical History / Comment(s): Patient has 2 sisters with no major medical problems. Patient does not have any brothers. Patient has one son with no major medical problems. Medications and Allergies Home Medications Medication Instructions Recorded Confirmed Type lisinopriL [Zestril] 5 mg PO DAILY #30 tab 09/08/18 11/24/23 Rx Budesonide/Formoterol Fumarate 2 puff INHALATION RT-BID 10/04/21 11/24/23 History [Symbicort 160-4.5 Mcg Inhaler] Albuterol Sulfate [Albuterol 2 puff INHALATION RT-QID PRN 09/12/23 11/24/23 History Sulfate Hfa] Potassium Chloride ER [K-Dur 10] 10 meq PO DAILY 09/12/23 11/24/23 History Rosuvastatin [Crestor] 10 mg PO DAILY 09/12/23 11/24/23 History buPROPion [Wellbutrin] 75 mg PO BID 09/12/23 11/24/23 History Allergies Allergy/AdvReac Type Severity Reaction Status Date / Time Penicillins Allergy Rash/Hives Verified 11/24/23 14:43 all over Sulfa (Sulfonamide Allergy tongue Verified 11/24/23 14:43 Antibiotics) swelling Physical Exam Vitals: Vital Signs Temp Pulse Pulse Resp BP BP Pulse Ox 11/25/23 04:00 97.6 F 105 H 20 115/75 91 L 11/25/23 01:38 102 H 22 11/25/23 00:00 97.6 F 102 H 22 119/75 94 L 11/24/23 20:45 97.5 F L 109 H 20 117/73 93 L 11/24/23 20:17 98.1 F 111 H 22 119/69 95 11/24/23 19:44 102 H 11/24/23 19:34 101 H 11/24/23 18:23 99 22 123/78 92 L 11/24/23 15:51 97.8 F 11/24/23 15:03 98 11/24/23 14:47 98 20 112/77 98 11/24/23 14:43 96 11/24/23 14:30 95 11/24/23 11:08 97.4 F L 108 H 26 H 106/72 95 Intake and Output 11/24/23 11/24/23 11/25/23 14:59 22:59 06:59 Intake Total 800 Balance 800 Intake: Intake, IV Titration 800 Amount Sodium Chloride 0.9% 1, 750 000 ml @ 75 mls/hr IV . [id number] NEPTALI Rx#:[id number] cefTRIAXone 1 gm In 50 Sodium Chloride 0.9% 50 ml @ 100 mls/hr IVPB Q24H NEPTALI Rx#:[id number] Other: Voiding Method Toilet Toilet # Voids 1 # Bowel Movements 1 Weight 72.575 kg 72.575 kg GENERAL EXAM: Alert, 73-year-old white female, appearing stated age, comfortable in no apparent distress. HEAD: Normocephalic and atraumatic EYES: Normal reaction of pupils, equal size. NOSE: Clear with pink turbinates. THROAT: No erythema or exudates. NECK: No masses, no JVD. CHEST: No chest wall deformity. LUNGS: Equal air entry with mild expiratory wheezes heard bilaterally. No rhonchi or crackles. On 2 L/min nasal cannula. No conversational dyspnea or accessory muscle use while at rest. CVS: S1 and S2 normal with no audible murmur, regular rhythm. No extra heart sounds ABDOMEN: No hepatosplenomegaly, active bowel sounds, no guarding or rigidity. SPINE: No scoliosis or deformity SKIN: No rashes CENTRAL NERVOUS SYSTEM: No focal deficits, tone is normal in all 4 extremities. EXTREMITIES: There is mild bilateral lowerextremity nonpitting edema. No clubbing, or cyanosis. Peripheral pulses are intact. Results - Laboratory Findings CBC and BMP: 11/24/23 12:14 11/24/23 12:14 PT/INR, D-dimer PT 10.0 sec (10.0-12.5) 11/24/23 12:14 INR 0.9 (<1.2) 11/24/23 12:14 Abnormal lab findings: Abnormal Labs 11/24/23 11/24/23 11/24/23 12:14 12:14 12:14 WBC 12.7 H MCV 101.8 H Plt Count 518 H Neutrophils # 11.6 H Lymphocytes # 0.5 L Potassium 3.4 L BUN 25 H Glucose 110 H POC Glucose (mg/dL) Magnesium 2.4 H Alkaline Phosphatase 128 H Troponin I 0.058 H* Total Protein 6.0 L Albumin 3.3 L 11/24/23 11/24/23 11/25/23 15:38 20:43 06:15 WBC MCV Plt Count Neutrophils # Lymphocytes # Potassium BUN Glucose POC Glucose (mg/dL) 157 H 124 H Magnesium Alkaline Phosphatase Troponin I 0.039 H* Total Protein Albumin - Diagnostic Findings Chest x-ray: image reviewed Assessment and Plan Assessment: Acute COPD exacerbation, Chest x-ray this admission showed a peripheral right midlung and left lower lung field infiltrates. Could reflect atelectasis versus developing pneumonia. Negative for influenza, RSV, COVID. 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 History of hyperlipidemia History of hypertension Former tobacco dependence Plan: Patient's medications, labs, chest x-ray reviewed Continue supplemental oxygen Continue combination of bronchodilators, Symbicort inhaler, IV Solu-Medrol Continue empiric antibiotics Procalcitonin level pending Mucinex added as expectorant Continue supportive care We will continue to follow I have personally seen and examined the patient, performed the documentation and the assessment and plan as written. Number of minutes spent on the visit:20 Time with Patient: Greater than 30
--- NOTE | 2023-11-25 08:17 | P.PN ---
Subjective Progress Note Date: 11/25/23 HISTORY OF PRESENT ILLNESS: 73-year-old one of my office patient well-known for long time with past medical history of COPD, mild arrhythmia, history of hypertension, hyperlipidemia, chronic osteoarthritis, chronic vascular cellulitis, mild hyperglycemia, who is known to have advanced COPD with remote history of smoking for long time adequate close to 2 years ago. She was hospitalized last time in December 2021 with COPD exacerbation and severe dyspnea with shortness of breath and has done well. She has been seen pulmonary, cardiology and our service on more regular basis and has been doing well. According to patient developed to have much worsening shortness of breath with dyspnea with minimal exertion for the last 2 weeks become significantly worse last few days that she was not able to stand up and walk has been falling many times she developed to have significant weakness in the upper part of her body. For the last few days developed to have worsening shortness of breath with cough productive of yellow phlegm with low-grade temperature 99.9 with significant expiratory expiratory wheezes patient become more bedbound and started having slight change in mental status with mild confusion. She ended up coming to the emergency department at [facility] where was seen and evaluated, original EKG showed mild tachycardia with no major change. Her troponin came back mildly elevated. White blood cell was 12,700 with left shifted platelet count 518, normal PT/INR electrolyte with mildly hypokalemia slightly elevated blood sugar at 157 with magnesium of 2.4. BNP was 1820 with COVID, influenza and RSV are all negative. Chest x-ray showed peripheral right midlung and left lower field infiltrate correlate with atelectasis versus pneumonia with sign of COPD. Patient was started on O2, updraft treatment on the clock, Solu-Medrol, Rocephin and azithromycin and admit patient to the hospital at this point. 11/25/2023: She is feeling slightly better today, was seen pulmonary service last night agree with the current plan, being on antibiotic along with steroid. With higher oxygen level through the night she is feeling much better. She is not running fever anymore at this point. For another chest x-ray tomorrow the meanwhile continue aggressive management for COPD. She will be seeing cardiology today her troponin become lower with the last 1 but still slightly bit abnormal. Also she is known to have ascending thoracic aneurysm seen vascular and need probably follow-up CAT scan late in the summer this year 4. REVIEW OF SYSTEMS Constitutional: No fever, no chills, no night sweats. No weight change. No weakness, fatigue or lethargy. No daytime sleepiness. EENT: No headache. No blurred vision or double vision, no loss of vision. No loss of Hearing, no ringing in the ears, no dizziness. No nasal drainage or congestion. No epistaxis. No sore throat. Lungs: Reports shortness of breath, cough, no sputum production. Reports wheezing. Cardiovascular: No chest pain, no lower extremity edema. No palpitations. No paroxysmal nocturnal dyspnea. No orthopnea. No lightheadedness or dizziness. No syncopal episodes. Abdominal: No abdominal pain. No nausea, vomiting. No diarrhea. No co nstipation. No bloody or tarry stools. No loss of appetite. Genitourinary: No dysuria, increased frequency, urgency. No urinary retention. Musculoskeletal: No myalgias. No muscle weakness, no gait dysfunction, no frequent falls. No back pain. No neck pain. Integumentary: No wounds, no lesions. No rash or pruritus. No unusual bruising. No change in hair or nails. Neurologic: No aphasia. No facial droop. No change in mentation. No head injury. No headache. No paralysis. No paresthesia. Psychiatric: No depression. No anxiety. No mood swings. Endocrine: No abnormal blood sugars. No weight change. No excessive sweating or thirst. No cold intolerance. PHYSICAL EXAMINATION Gen: This is a 70-year-old female. She is resting in bed and appears to be comfortable. No acute respiratory distress noted. HEENT: Head is atraumatic, normocephalic. Pupils equal, round. Sclerae is anicteric. NECK: Supple. No JVD. No lymphadenopathy. No thyromegaly. LUNGS: Bilateral expiratory wheeze and rhonchiClear to auscultation. No wheezes or rhonchi. No intercostal retractions. HEART: Regular rate and rhythm. No murmur. ABDOMEN: Soft. Bowel sounds are present. No masses. No tenderness. EXTREMITIES: No pedal edema. No calf tenderness. NEUROLOGICAL: Patient is awake, alert and oriented with slight confusion. Cranial nerves 2 through 12 are grossly intact. Has been able to do any gait exam. ASSESSMENT AND PLAN: _Acute on chronic respiratory failure: Secondary to severe COPD, hypoxia, bilateral pneumonia, with most likely generalized myalgia. Will continue O2, updraft, steroid, pulmonary consultation. _COPD exacerbation: Continue bronchodilator nebulizer along with Solu-Medrol steroid nebulizer. _Acute severe bilateral pneumonia, with right middle lobe and left lower lobe, ER started patient on Rocephin and azithromycin which is reasonable coverage at this point we will continue current medication for any reason patient continued to be more symptomatic will expand coverage to cover gram-negative and cover patient for aspiration as well. _Severe myalgia: Being off statin at this point and having to be on higher dose of steroid had helped within overnight. _Mildly elevated troponin with possible non-ST DC type II: Consult cardiology, CT with troponin x 3 will be done repeat EKG in the morning. 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 _Hypertension: Was on Zestril 5 mg a day titrate dose higher try to keep systolic blood pressure below 140. _Hyperlipidemia: Was on rosuvastatin 10 mg a day with a significant complaint of myalgia continue to be off rosuvastatin for now. _Chronic depression and help with smoking cessation: Patient remain on Wellbutrin 75 mg twice a day resume medication. _Hypokalemia:_Continue potassium replacement therapy for now. _Hyperglycemia: Continue Accu-Chek with sliding scale coverage. _GI prophylaxis: Pepcid 20 mg daily will be done. Discussion: Continue O2, updraft treatment, steroid, waiting to see cardiology and pulmonary today continue aggressive management she might need an echocardiogram and continue surveillance monitor for any worsening arrhythmia. Patient probably be in the hospital for the next 48 hours. Objective - Vital Signs Vital signs: Vital Signs Temp 97.6 F 11/25/23 04:00 Pulse 105 H 11/25/23 04:00 Resp 20 11/25/23 04:00 BP 115/75 11/25/23 04:00 Pulse Ox 91 L 11/25/23 04:00 FiO2 Intake & Output 11/24/23 11/25/23 11/25/23 18:59 06:59 18:59 Intake Total 800 Balance 800 Weight 72.575 kg 72.575 kg Intake: Intake, IV Titration 800 Amount Sodium Chloride 0.9% 1, 750 000 ml @ 75 mls/hr IV . [id number] NEPTALI Rx#:[id number] cefTRIAXone 1 gm In 50 Sodium Chloride 0.9% 50 ml @ 100 mls/hr IVPB Q24H NEPTALI Rx#:[id number] Other: Voiding Method Toilet # Voids 1 # Bowel Movements 1 - Labs CBC & Chem 7: 11/24/23 12:14 11/24/23 12:14 Labs: Abnormal Lab Results - Last 24 Hours (Table) 11/24/23 11/24/23 11/24/23 Range/Units 12:14 12:14 12:14 WBC 12.7 H (3.8-10.6) k/uL MCV 101.8 H (80.0-100.0) fL Plt Count 518 H (150-450) k/uL Neutrophils # 11.6 H (1.3-7.7) k/uL Lymphocytes # 0.5 L (1.0-4.8) k/uL Potassium 3.4 L (3.5-5.1) mmol/L BUN 25 H (7-17) mg/dL Glucose 110 H (74-99) mg/dL POC Glucose (mg/dL) (70-110) mg/dL Magnesium 2.4 H (1.6-2.3) mg/dL Alkaline Phosphatase 128 H (38-126) U/L Troponin I 0.058 H* (0.000-0.034) ng/mL Total Protein 6.0 L (6.3-8.2) g/dL Albumin 3.3 L (3.5-5.0) g/dL 11/24/23 11/24/23 11/25/23 Range/Units 15:38 20:43 06:15 WBC (3.8-10.6) k/uL MCV (80.0-100.0) fL Plt Count (150-450) k/uL Neutrophils # (1.3-7.7) k/uL Lymphocytes # (1.0-4.8) k/uL Potassium (3.5-5.1) mmol/L BUN (7-17) mg/dL Glucose (74-99) mg/dL POC Glucose (mg/dL) 157 H 124 H (70-110) mg/dL Magnesium (1.6-2.3) mg/dL Alkaline Phosphatase (38-126) U/L Troponin I 0.039 H* (0.000-0.034) ng/mL Total Protein (6.3-8.2) g/dL Albumin (3.5-5.0) g/dL
[2023-11-25] MEDS: SYMBICORT 160-4.5 MCG INHALER INHALATION SCH (09:07)
[2023-11-25] MEDS: POTASSIUM CHLORIDE ER 10 MEQ TAB.ER.PRT PO SCH (09:30)
[2023-11-25] MEDS: guaiFENesin 600 MG TABLET.ER PO SCH (09:30)
[2023-11-25] MEDS: lisinopriL 5 MG TAB PO SCH (09:30)
[2023-11-25] MEDS: ATORVASTATIN 20 MG TAB PO SCH (09:30)
[2023-11-25] MEDS: FAMOTIDINE 20 MG TAB PO SCH (09:30)
[2023-11-25] MEDS: ENOXAPARIN 40 MG/0.4 ML SYRINGE SQ SCH (09:31)
[2023-11-25 11:26] LABS: Glucose,Whole Blood 125 mg/dL (70-110)
--- NOTE | 2023-11-25 11:59 | P.CRDCN ---
History of Present Illness History of present illness: HISTORY OF PRESENT ILLNESS: This is a 73-year-old female with a past medical history significant for tobacco abuse, COPD, hypertension, hyperlipidemia and pulmonary hypertension. Patient follows in the office with Dr. Mauricio. We have been asked to see the patient in consultation for elevated troponin. Patient examined at the bedside. Patient presented to the hospital with a chief complaint of shortness of breath. She states she has been short of breath for about 1 week. She also reports having a nonproductive cough. She denies any fever or chills at home. Patient denies any chest pain or pressure. Vital signs are stable. DIAGNOSTICS: - EKG reveals sinus mechanism with no signs of acute ischemia. - Chest xray peripheral right midlung and left lower lung field infiltrates. Correlate for atelectasis or pneumonia.. - Laboratory data: WBC 12.7. Hemoglobin 13.8. Platelet count 518. Sodium 138. Potassium 3.4. BUN 25. Creatinine 0.55. Magnesium 2.4. Procalcitonin 0.35. Troponin 0.058. 0.039. 0.027. 0.019. - Current home cardiac medications include lisinopril 5 mg daily and rosuvastatin 10 mg daily. - Most recent echocardiogram obtained in the office in August 2022 revealed ejection fraction 55 to 60%, moderate LVH - Patient underwent Lexiscan in August 2022 which was negative for ischemia REVIEW OF SYSTEMS: At the time of my exam: CONSTITUTIONAL: Denies fever or chills. HEENT: Denies blurred vision, vision changes, or eye pain. Denies hemoptysis CARDIOVASCULAR: Denies chest pain. Denies orthopnea. Denies PND. Denies palpitations RESPIRATORY: Denies shortness of breath. GASTROINTESTINAL: Denies abdominal pain. Denies nausea or vomiting. HEMATOLOGIC: Denies bleeding disorders. GENITOURINARY: Denies any blood in urine. SKIN: Denies pruitis. Denies rash. PHYSICAL EXAM: VITAL SIGNS: Reviewed. GENERAL: Well-developed in no acute distress. HEENT: Head is normocephalic. Pupils are equal, round. Sclerae anicteric. Mucous membranes of the mouth are moist. Neck supple. No JVD or thyromegaly LUNGS: Respirations even and unlabored. Lungs with mild expiratory wheezing HEART: Regular rate and rhythm. S1 and S2 heard. ABDOMEN: Soft. Nondistended. Nontender. EXTREMITIES: Normal range of motion. No clubbing or cyanosis. Peripheral pulses intact. No lower extremity edema NEUROLOGIC: Awake and alert. Oriented x 3. ASSESSMENT: Shortness of breath Acute COPD exacerbation Possible pneumonia Abnormal troponins, likely type II MS secondary to oxygen demand and supply mismatch, no evidence of acute coronary syndrome Hypertension Hyperlipidemia Pulmonary hypertension PLAN: An acute coronary event has been ruled out Obtain 2D echo to assess cardiac structure and function Resume home cardiac medications Pulmonary following. IV steroids per pulmonary medicine. Patient is currently stable from a cardiac perspective Further recommendations pending patient course Nurse practitioner note has been reviewed by physician. Signing provider agrees with the documented findings, assessment, and plan of care documented by LATEX FASHIONS DESIGNER as a scribe. Past Medical History Past Medical History: COPD Additional Past Medical History / Comment(s): hx. colon polyps History of Any Multi-Drug Resistant Organisms: None Reported Past Surgical History: Tonsillectomy Additional Past Surgical History / Comment(s): catarat surg. kyphplasty, Past Anesthesia/Blood Transfusion Reactions: No Reported Reaction Past Psychological History: No Psychological Hx Reported Smoking Status: Former smoker - Past Family History Mother Family Medical History: No Reported History Additional Family Medical History / Comment(s): Mother from Alzheimer's dementia. Father Additional Family Medical History / Comment(s): Father from coronary artery disease. Sister(s) Additional Family Medical History / Comment(s): Patient has 2 sisters with no major medical problems. Patient does not have any brothers. Patient has one son with no major medical problems. Medications and Allergies Home Medications Medication Instructions Recorded Confirmed Type lisinopriL [Zestril] 5 mg PO DAILY #30 tab 09/08/18 11/24/23 Rx Budesonide/Formoterol Fumarate 2 puff INHALATION RT-BID 10/04/21 11/24/23 History [Symbicort 160-4.5 Mcg Inhaler] Albuterol Sulfate [Albuterol 2 puff INHALATION RT-QID PRN 09/12/23 11/24/23 History Sulfate Hfa] Potassium Chloride ER [K-Dur 10] 10 meq PO DAILY 09/12/23 11/24/23 History Rosuvastatin [Crestor] 10 mg PO DAILY 09/12/23 11/24/23 History buPROPion [Wellbutrin] 75 mg PO BID 09/12/23 11/24/23 History Allergies Allergy/AdvReac Type Severity Reaction Status Date / Time Penicillins Allergy Rash/Hives Verified 11/24/23 14:43 all over Sulfa (Sulfonamide Allergy tongue Verified 11/24/23 14:43 Antibiotics) swelling Physical Exam Vitals: Vital Signs Temp Pulse Pulse Resp BP BP Pulse Ox 11/25/23 09:18 110 H 11/25/23 09:07 112 H 94 L 11/25/23 08:00 97.4 F L 112 H 19 113/72 92 L 11/25/23 04:00 97.6 F 105 H 20 115/75 91 L 11/25/23 01:38 102 H 22 11/25/23 00:00 97.6 F 102 H 22 119/75 94 L 11/24/23 20:45 97.5 F L 109 H 20 117/73 93 L 11/24/23 20:17 98.1 F 111 H 22 119/69 95 11/24/23 19:44 102 H 11/24/23 19:34 101 H 11/24/23 18:23 99 22 123/78 92 L 11/24/23 15:51 97.8 F 11/24/23 15:03 98 11/24/23 14:47 98 20 112/77 98 11/24/23 14:43 96 11/24/23 14:30 95 11/24/23 11:08 97.4 F L 108 H 26 H 106/72 95 Intake and Output 11/24/23 11/25/23 11/25/23 22:59 06:59 14:59 Intake Total 800 60 Balance 800 60 Intake: Intake, IV Titration 800 Amount Sodium Chloride 0.9% 1, 750 000 ml @ 75 mls/hr IV . [id number] [facility] Rx#:[id number] cefTRIAXone 1 gm In 50 Sodium Chloride 0.9% 50 ml @ 100 mls/hr IVPB Q24H [facility] Rx#:[id number] Oral 60 Other: Voiding Method Toilet Toilet Toilet # Voids 1 # Bowel Movements 1 Weight 72.575 kg Results 11/24/23 12:14 11/24/23 12:14 Cardiac Enzymes 11/24/23 11/24/23 11/24/23 Range/Units 12:14 12:14 15:38 AST 21 (14-36) U/L Troponin I 0.058 H* 0.039 H* (0.000-0.034) ng/mL 11/24/23 11/24/23 Range/Units 18:24 21:14 AST (14-36) U/L Troponin I 0.024 0.019 (0.000-0.034) ng/mL Coagulation 11/24/23 Range/Units 12:14 PT 10.0 (10.0-12.5) sec APTT 28.2 (22.0-30.0) sec CBC 11/24/23 Range/Units 12:14 WBC 12.7 H (3.8-10.6) k/uL RBC 4.18 (3.80-5.40) m/uL Hgb 13.8 (11.4-16.0) gm/dL Hct 42.6 (34.0-46.0) % Plt Count 518 H (150-450) k/uL Comprehensive Metabolic Panel 11/24/23 Range/Units 12:14 Sodium 138 (137-145) mmol/L Potassium 3.4 L (3.5-5.1) mmol/L Chloride 100 (98-107) mmol/L Carbon Dioxide 28 (22-30) mmol/L BUN 25 H (7-17) mg/dL Creatinine 0.55 (0.52-1.04) mg/dL Glucose 110 H (74-99) mg/dL Calcium 8.6 (8.4-10.2) mg/dL AST 21 (14-36) U/L ALT 18 (4-34) U/L Alkaline Phosphatase 128 H (38-126) U/L Total Protein 6.0 L (6.3-8.2) g/dL Albumin 3.3 L (3.5-5.0) g/dL Current Medications Generic Name Dose Route Start Last Admin Trade Name Freq PRN Reason Stop Dose Admin Acetaminophen 650 mg 11/24/23 15:20 Acetaminophen Tab 325 Mg Tab PO Q4HR PRN Mild Pain or Fever > 100.5 Albuterol Sulfate 2 puff 11/24/23 21:15 Albuterol Hfa Inhaler INHALATION RT-QID PRN Shortness Of Breath Albuterol/Ipratropium 3 ml 11/24/23 15:20 Ipratropium-Albuterol 3 Ml Neb INHALATION RT-Q2H PRN Shortness Of Breath Or Wheezing Albuterol/Ipratropium 3 ml 11/24/23 16:00 11/25/23 09:06 Ipratropium-Albuterol 3 Ml Neb INHALATION 3 ml RT-QID [facility] Administration Atorvastatin Calcium 20 mg 11/25/23 09:00 11/25/23 09:30 Atorvastatin 20 Mg Tab PO 20 mg DAILY [facility] Administration Budesonide/Formoterol Fumarate 2 puff 11/25/23 08:00 11/25/23 09:07 Symbicort 160-4.5 Mcg Inhaler INHALATION 2 puff RT-BID [facility] Administration Bupropion HCl 75 mg 11/24/23 21:15 11/25/23 09:30 Bupropion 75 Mg Tab PO 75 mg BID [facility] Administration Dextrose/Water 25 ml 11/24/23 21:16 Dextrose 50% Syringe 50 Ml IVP PER PROTOCOL PRN Hypoglycemia Protocol Dextrose/Water 50 ml 11/24/23 21:16 Dextrose 50% Syringe 50 Ml IVP PER PROTOCOL PRN Hypoglycemia Protocol Enoxaparin Sodium 40 mg 11/25/23 09:00 11/25/23 09:31 Enoxaparin 40 Mg/0.4 Ml Syringe SQ 40 mg DAILY [facility] Administration Famotidine 20 mg 11/25/23 09:00 11/25/23 09:30 Famotidine 20 Mg Tab PO 20 mg DAILY [facility] Administration Guaifenesin 1,200 mg 11/25/23 09:00 11/25/23 09:30 Guaifenesin 600 Mg Tablet.Er PO 1,200 mg Q12HR [facility] Administration Sodium Chloride 1,000 mls @ 75 mls/hr 11/24/23 15:30 11/25/23 06:31 Saline 0.9% IV 75 mls/hr .[id number] [facility] Administration Azithromycin 500 mg/ Sodium 250 mls @ 250 mls/hr 11/25/23 15:00 Chloride IVPB 11/27/23 15:59 DAILY@1500 [facility] Protocol Ceftriaxone Sodium 1 gm/ 50 mls @ 100 mls/hr 11/24/23 15:00 11/25/23 00:22 Sodium Chloride IVPB 100 mls/hr Q24H [facility] Administration Protocol Insulin Aspart 0 unit 11/25/23 07:30 11/25/23 06:31 Insulin Aspart (Novolog) 100 Unit/Ml Vial SQ Not Given ACHS [facility] Protocol Lisinopril 5 mg 11/25/23 09:00 11/25/23 09:30 Lisinopril 5 Mg Tab PO 5 mg DAILY [facility] Administration Methylprednisolone Sodium Succinate 60 mg 11/24/23 18:00 11/25/23 06:29 Methylprednisolone Sod Succi 125 Mg/2 Ml Vial IV 60 mg Q6HR [facility] Administration Naloxone HCl 0.2 mg 11/24/23 15:20 Naloxone 0.4 Mg/Ml 1 Ml Vial IVP Q2M PRN Opioid Reversal Potassium Chloride 10 meq 11/25/23 09:00 11/25/23 09:30 Potassium Chloride Er 10 Meq Tab.Er.Prt PO 10 meq DAILY [facility] Administration Intake and Output 11/24/23 11/25/23 11/25/23 22:59 06:59 14:59 Intake Total 800 60 Balance 800 60 Intake: Intake, IV Titration 800 Amount Sodium Chloride 0.9% 1, 750 000 ml @ 75 mls/hr IV . [id number] [facility] Rx#:[id number] cefTRIAXone 1 gm In 50 Sodium Chloride 0.9% 50 ml @ 100 mls/hr IVPB Q24H [facility] Rx#:[id number] Oral 60 Other: Voiding Method Toilet Toilet Toilet # Voids 1 # Bowel Movements 1 Weight 72.575 kg 11/24/23 12:14 11/24/23 12:14
[2023-11-25] MEDS: METOPROLOL TARTRATE 25 MG TAB PO SCH (12:18)
--- NOTE | 2023-11-25 15:18 | CA ---
Transthoracic Echo Report Name: Destiny Miles Age: 73 Gender: F : 1950 Exam Date: 11/25/2023 12:56 Exam Location: [facility] Ht (in): 66 Wt (lb): 160 Ordering Physician: Mei Fall Attending/Referring Phys: [id number], Juan David Furnace Worker Tammi Whitley RCS Procedure CPT: Indications: lv function, elevated trops Cardiac Hx: Technical Quality: Fair Contrast 1: Total Dose (mL): Contrast 2: Total Dose (mL): MEASUREMENTS (Male / Female) Normal Values 2D ECHO LV Diastolic Diameter PLAX 4.7 cm 4.2 - 5.9 / 3.9 - 5.3 cm IVS Diastolic Thickness 0.9 cm 0.6 - 1.0 / 0.6 - 0.9 cm LVPW Diastolic Thickness 0.8 cm 0.6 - 1.0 / 0.6 - 0.9 cm LV Relative Wall Thickness 0.4 RV Internal Dim ED PLAX 2.8 cm LVOT Diameter 2.0 cm LV Diastolic Volume MOD BP 85.0 cm??? 67 - 155 / 56 - 104 cm??? LV Systolic Volume MOD BP 24.0 cm??? 22 - 58 / 19 - 49 cm??? LV Ejection Fraction MOD BP 71.8 % >= 55 % LV Cardiac Index MOD BP 3496.4 cm???/min???m??? LV Diastolic Volume MOD 4C 80.5 cm??? LV Systolic Volume MOD 4C 21.4 cm??? LV Ejection Fraction MOD 4C 73.5 % LV Cardiac Index MOD 4C 3386.8 cm???/min???m??? LV Diastolic Length 4C 7.9 cm LV Systolic Length 4C 6.0 cm LV Diastolic Volume MOD 2C 88.5 cm??? LV Systolic Volume MOD 2C 27.1 cm??? LV Ejection Fraction MOD 2C 69.4 % LV Cardiac Index MOD 2C 3514.6 cm???/min???m??? LV Diastolic Length 2C 8.0 cm LV Systolic Length 2C 6.0 cm LA Volume 31.1 cm??? 18 - 58 / 22 - 52 cm??? LA Volume Index 16.8 cm???/m??? 16 - 28 cm???/m??? DOPPLER AV Peak Velocity 143.3 cm/s AV Peak Gradient 8.2 mmHg AV Mean Velocity 102.8 cm/s AV Mean Gradient 4.7 mmHg AV Velocity Time Integral 26.3 cm LVOT Peak Velocity 127.9 cm/s LVOT Peak Gradient 6.5 mmHg LVOT Velocity Time Integral 22.8 cm LVOT Stroke Volume 70.0 cm??? LVOT Stroke Volume Index 38.5 ml/m??? LVOT Cardiac Index 4006.6 cm???/min???m??? AV Area Cont Eq vti 2.7 cm??? AV Area Cont Eq pk 2.7 cm??? Mitral E Point Velocity 73.5 cm/s Mitral A Point Velocity 101.0 cm/s Mitral E to A Ratio 0.7 MV Deceleration Time 111.6 ms MV E' Velocity 6.7 cm/s Mitral E to MV E' Ratio 11.0 TR Peak Velocity 283.2 cm/s TR Peak Gradient 32.1 mmHg Right Atrial Pressure 10.0 mmHg Pulmonary Artery Systolic Pressu 42.1 mmHg Right Ventricular Systolic Press 42.0 mmHg FINDINGS Left Ventricle Left ventricular ejection fraction is estimated at 65 %. Normal left ventricular systolic function. Left ventricular wall thickness normal. Left ventricular cavity size normal. No obvious regional wall motion abnormalities. Right Ventricle Normal right ventricular size and function. Mildly elevated right ventricular systolic function. Right Atrium Right atrium not well visualized. Left Atrium Normal left atrial size. Mitral Valve Structurally normal mitral valve. No evidence for mitral valve prolapse. No mitral stenosis. Trace mitral regurgitation. Aortic Valve Aortic valve not well visualized. No aortic stenosis. No aortic regurgitation. Tricuspid Valve Structurally normal tricuspid valve. No tricuspid stenosis. Mild tricuspid regurgitation. Pulmonic Valve Pulmonic valve not well visualized. No pulmonic stenosis. No pulmonic regurgitation. Pericardium No pericardial effusion. Aorta Aortic annulus normal. Ascending aorta not well visualized. CONCLUSIONS Left ventricular ejection fraction 65% RVSP 42 Trace mitral regurgitation Mild tricuspid regurgitation Previewed by: Dr. Enzo Mauricio DO (Electronically Signed) Final Date: 25 November 2023 15:18
[2023-11-25 16:54] LABS: Glucose,Whole Blood 120 mg/dL (70-110)
[2023-11-25] MEDS: AZITHROMYCIN 500 MG in SODIUM CHLORIDE 0.9% 250 ML IVPB SCH (17:47)
[2023-11-25 20:00] LABS: Glucose,Whole Blood 119 mg/dL (70-110)
[2023-11-26 06:25] LABS: Glucose,Whole Blood 122 mg/dL (70-110)
[2023-11-26 10:07] LABS: Basophils # (A) 0.1 k/uL (0-0.2); Basophils % (A) 1 %; Eosinophils % (A) 0 %; HCT 43.1 % (34.0-46.0); HGB 13.3 gm/dL (11.4-16.0); Lymphocytes # (A) 0.4 k/uL (1.0-4.8); Lymphocytes % (A) 4 %; MCHC 30.9 g/dL (31.0-37.0); MCV 103.4 fL (80.0-100.0); Macrocytosis Slight; Mean Platelet Volume 7.6; Monocytes # (A) 0.2 k/uL (0-1.0); Monocytes % (A) 2 %; Neutrophils # (A) 10.7 k/uL (1.3-7.7); Neutrophils % (A) 93 %; Platelet Count 570 k/uL (150-450); RBC 4.17 m/uL (3.80-5.40); RDW 12.3 % (11.5-15.5); WBC 11.4 k/uL (3.8-10.6)
[2023-11-26 10:37] LABS: ALT 21 U/L (4-34); AST 21 U/L (14-36); African American GFR (CKD) >90 (>60 ml/min/1.73 sqM); Albumin 3.1 g/dL (3.5-5.0); Alkaline Phosphatase 104 U/L (38-126); Anion Gap 11 mmol/L; Blood Urea Nitrogen 27 mg/dL (7-17); Calcium 8.7 mg/dL (8.4-10.2); Carbon Dioxide 23 mmol/L (22-30); Chloride 104 mmol/L (98-107); Glucose 156 mg/dL (74-99); Non-African American GFR(CKD) >90 (>60 ml/min/1.73 sqM); Potassium 4.1 mmol/L (3.5-5.1); Sodium 138 mmol/L (137-145); Total Bilirubin 0.4 mg/dL (0.2-1.3); Total Protein 5.7 g/dL (6.3-8.2)
[2023-11-26 10:44] LABS: NT-Pro-B-Type Natriuretic Pept 2290 pg/mL
[2023-11-26] MEDS: ASPIRIN 81 MG PO SCH (10:53)
[2023-11-26 11:17] LABS: Glucose,Whole Blood 156 mg/dL (70-110)
--- NOTE | 2023-11-26 11:58 | P.PN ---
Subjective HISTORY OF PRESENT ILLNESS: This is a 73-year-old female with a past medical history significant for tobacco abuse, COPD, hypertension, hyperlipidemia and pulmonary hypertension. Patient follows in the office with Dr. Mauricio. We have been asked to see the patient in consultation for elevated troponin. Patient examined at the bedside. Patient presented to the hospital with a chief complaint of shortness of breath. She states she has been short of breath for about 1 week. She also reports having a nonproductive cough. She denies any fever or chills at home. Patient denies any chest pain or pressure. Vital signs are stable. DIAGNOSTICS: - EKG reveals sinus mechanism with no signs of acute ischemia. - Chest xray peripheral right midlung and left lower lung field infiltrates. Correlate for atelectasis or pneumonia.. - Laboratory data: WBC 12.7. Hemoglobin 13.8. Platelet count 518. Sodium 138. Potassium 3.4. BUN 25. Creatinine 0.55. Magnesium 2.4. Procalcitonin 0.35. Troponin 0.058. 0.039. 0.027. 0.019. - Current home cardiac medications include lisinopril 5 mg daily and rosuvastatin 10 mg daily. - Most recent echocardiogram obtained in the office in August 2022 revealed ejection fraction 55 to 60%, moderate LVH - Patient underwent Lexiscan in August 2022 which was negative for ischemia 11/26/2023 Patient examined this morning. She is sitting up in the chair. Patient's family is present. Patient states she is feeling better today. She continues to report shortness of breath although improved. She denies any chest pain or pressure. Vital signs are stable. Echocardiogram completed revealing ejection fraction 65% with no obvious regional wall motion abnormalities, trace MR, mild TR PHYSICAL EXAM: VITAL SIGNS: Reviewed. GENERAL: Well-developed in no acute distress. HEENT: Head is normocephalic. Pupils are equal, round. Sclerae anicteric. Mucous membranes of the mouth are moist. Neck supple. No JVD or thyromegaly LUNGS: Respirations even and unlabored. Lungs with mild expiratory wheezing HEART: Regular rate and rhythm. S1 and S2 heard. ABDOMEN: Soft. Nondistended. Nontender. EXTREMITIES: Normal range of motion. No clubbing or cyanosis. Peripheral pulses intact. No lower extremity edema NEUROLOGIC: Awake and alert. Oriented x 3. ASSESSMENT: Shortness of breath Acute COPD exacerbation Possible pneumonia Abnormal troponins, likely type II PR secondary to oxygen demand and supply mismatch, no evidence of acute coronary syndrome Hypertension Hyperlipidemia Pulmonary hypertension PLAN: An acute coronary event has been ruled out Continue current cardiac medications Pulmonary following. IV steroids per pulmonary medicine. Patient is currently stable from a cardiac perspective Further recommendations pending patient course Nurse practitioner note has been reviewed by physician. Signing provider agrees with the documented findings, assessment, and plan of care documented by DIAMOND EXPERT as a scribe. Objective - Vital Signs Vital signs: Vital Signs Temp 97.7 F 11/26/23 10:00 Pulse 83 11/26/23 11:43 Resp 22 11/26/23 10:00 BP 118/66 11/26/23 10:00 Pulse Ox 94 L 11/26/23 10:00 FiO2 Intake & Output 11/25/23 11/26/23 11/26/23 18:59 06:59 18:59 Intake Total 1078 110 Balance 1078 110 Intake: Intake, IV Titration 900 Amount Azithromycin 500 mg In 250 Sodium Chloride 0.9% 250 ml @ 250 mls/hr IVPB DAILY@1500 [facility] Rx#: [id number] Sodium Chloride 0.9% 1, 600 000 ml @ 75 mls/hr IV . [id number] [facility] Rx#:[id number] cefTRIAXone 1 gm In 50 Sodium Chloride 0.9% 50 ml @ 100 mls/hr IVPB Q24H [facility] Rx#:[id number] Oral 178 110 Other: Voiding Method Toilet Toilet # Voids 4 1 1 - Labs CBC & Chem 7: 11/26/23 09:15 11/26/23 09:19 Labs: Abnormal Lab Results - Last 24 Hours (Table) 11/25/23 11/25/23 11/26/23 Range/Units 16:46 19:59 06:14 WBC (3.8-10.6) k/uL MCV (80.0-100.0) fL MCHC (31.0-37.0) g/dL Plt Count (150-450) k/uL Neutrophils # (1.3-7.7) k/uL Lymphocytes # (1.0-4.8) k/uL BUN (7-17) mg/dL Glucose (74-99) mg/dL POC Glucose (mg/dL) 120 H 119 H 122 H (70-110) mg/dL Total Protein (6.3-8.2) g/dL Albumin (3.5-5.0) g/dL 11/26/23 11/26/23 11/26/23 Range/Units 09:15 09:19 11:15 WBC 11.4 H (3.8-10.6) k/uL MCV 103.4 H (80.0-100.0) fL MCHC 30.9 L (31.0-37.0) g/dL Plt Count 570 H (150-450) k/uL Neutrophils # 10.7 H (1.3-7.7) k/uL Lymphocytes # 0.4 L (1.0-4.8) k/uL BUN 27 H (7-17) mg/dL Glucose 156 H (74-99) mg/dL POC Glucose (mg/dL) 156 H (70-110) mg/dL Total Protein 5.7 L (6.3-8.2) g/dL Albumin 3.1 L (3.5-5.0) g/dL Microbiology - Last 24 Hours (Table) 11/24/23 12:40 Blood Culture - Preliminary Blood 11/24/23 12:55 Blood Culture - Preliminary Blood
--- NOTE | 2023-11-26 13:01 | P.PN ---
Subjective Progress Note Date: 11/26/23 Principal diagnosis: Shortness of breath. Patient is a 73-year-old white female with past medical history significant for severe COPD, hyperlipidemia, hypertension, and former tobacco dependence. Her primary care provider is Dr. Hernandez. She does follow in the pulmonary office w lindsey Chandra for management of her severe chronic obstructive pulmonary disease. She has an FEV1 42% of predicted. She is maintained on a combination of Symbicort and as needed albuterol inhalers. Patient presented to the emergency room yesterday afternoon complaining acute on chronic shortness of breath. She is also had an associated nonproductive cough, sore throat, and hoarse voice. She denies sick contacts. She does have recent history of acute COVID infection in August,. She states that she never completely recovered from this, but is particularly worse since last Friday. She has had a chest CT with contrast on 11/17/2023 which showed marked emphysematous changes. Small focal area of interstitial changes in the right lung base, mostly likely chronic interstitial changes. New 7 mm pleural/parenchymal nodule in the left upper lobe posteriorly, likely benign. 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 Patient is currently sitting up in bed, on 2 L/min nasal cannula, in no acute distress. Chest x-ray this admission showed a peripheral right midlung and left lower lung field infiltrates. Possible atelectasis versus developing pneumonia. Negative for influenza, RSV, COVID. CBC includes a WBC count of 12.7, hemoglobin 13.8, hematocrit 42.6, platelets 518. BMP unremarkable. Normal saline infusing at 75 ml/hr. Troponins are elevated, but trending down, most recent result 0.019. NT proBNP 1820. Afebrile. Nontoxic appearance. Vital signs are stable. Progress note dated December 05. 73-year-old female with history of severe COPD, seen today in room 380. The patient is feeling about the same, may be slightly better than she did yesterday. She was seen in consultation yesterday. She continues on 2 L of oxygen. We have her on updrafts with albuterol sulfate and ipratropium bromide, Solu-Medrol, and Symbicort inhaler. The Symbicort inhaler will be changed to budesonide, and formoterol, twice a day. Current labs include a white count 11.4, hemoglobin 13.3, hematocrit 43.1, and a platelet count of 570,000. Sodium 138, potassium 4.1, chlorides 104, CO2 23, BUN 27, creatinine 0.58. Glucose 156. Albumin 3.1. N-terminal proBNP is 2290. Objective - Vital Signs Vital signs: Vital Signs Temp 97.7 F 11/26/23 10:00 Pulse 83 11/26/23 11:43 Resp 22 11/26/23 10:00 BP 118/66 11/26/23 10:00 Pulse Ox 94 L 11/26/23 10:00 FiO2 Intake & Output 11/25/23 11/26/23 11/26/23 18:59 06:59 18:59 Intake Total 1078 110 Balance 1078 110 Intake: Intake, IV Titration 900 Amount Azithromycin 500 mg In 250 Sodium Chloride 0.9% 250 ml @ 250 mls/hr IVPB DAILY@1500 [facility] Rx#: [id number] Sodium Chloride 0.9% 1, 600 000 ml @ 75 mls/hr IV . [id number] [facility] Rx#:[id number] cefTRIAXone 1 gm In 50 Sodium Chloride 0.9% 50 ml @ 100 mls/hr IVPB Q24H [facility] Rx#:[id number] Oral 178 110 Other: Voiding Method Toilet Toilet # Voids 4 1 1 - Exam No acute distress, oriented 3. Currently on 2 L of oxygen. No conversational dyspnea or use of accessory muscles. HEENT examination is grossly unremarkable. Mucous membranes are moist. No oral lesions. Neck supple. Full range of motion. No adenopathy thyromegaly or neck vein distention. Cardiovascular examination reveals regular rhythm rate. S1-S2 normal. No S3 or S4. No discernible murmur noted. Heart rate 83 bpm. Heart sounds are distant. Lungs reveal expiratory rhonchi and wheezes. Breath sounds equal but diminished throughout. No crackles. 2 L saturation is 94%. Abdomen soft bowel sounds are heard. No masses or tenderness. Extremities are intact. No cyanosis clubbing or edema. Skin is without rash or lesion. Neurologic examination is brief but nonfocal. - Labs CBC & Chem 7: 11/26/23 09:15 11/26/23 09:19 Labs: Abnormal Lab Results - Last 24 Hours (Table) 11/25/23 11/25/23 11/26/23 Range/Units 16:46 19:59 06:14 WBC (3.8-10.6) k/uL MCV (80.0-100.0) fL MCHC (31.0-37.0) g/dL Plt Count (150-450) k/uL Neutrophils # (1.3-7.7) k/uL Lymphocytes # (1.0-4.8) k/uL BUN (7-17) mg/dL Glucose (74-99) mg/dL POC Glucose (mg/dL) 120 H 119 H 122 H (70-110) mg/dL Total Protein (6.3-8.2) g/dL Albumin (3.5-5.0) g/dL 11/26/23 11/26/23 11/26/23 Range/Units 09:15 09:19 11:15 WBC 11.4 H (3.8-10.6) k/uL MCV 103.4 H (80.0-100.0) fL MCHC 30.9 L (31.0-37.0) g/dL Plt Count 570 H (150-450) k/uL Neutrophils # 10.7 H (1.3-7.7) k/uL Lymphocytes # 0.4 L (1.0-4.8) k/uL BUN 27 H (7-17) mg/dL Glucose 156 H (74-99) mg/dL POC Glucose (mg/dL) 156 H (70-110) mg/dL Total Protein 5.7 L (6.3-8.2) g/dL Albumin 3.1 L (3.5-5.0) g/dL Microbiology - Last 24 Hours (Table) 11/24/23 12:40 Blood Culture - Preliminary Blood 11/24/23 12:55 Blood Culture - Preliminary Blood Assessment and Plan Assessment: Acute COPD exacerbation, Chest x-ray this admission showed a peripheral right midlung and left lower lung field infiltrates. Could reflect atelectasis versus developing pneumonia. Negative for influenza, RSV, COVID. Acute on chronic shortness of breath, secondary to above. Recent COVID-19 infection. Voice hoarseness, possible laryngitis. Severe chronic obstructive pulmonary disease, with an FEV1 42% of predicted. New 7mm pleural/parenchymal pulmonary nodule, likely benign, however, recommend 6 month follow up outpatient. Elevated troponins, trending down, ACS unlikely. 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 History of hyperlipidemia. History of hypertension. Former tobacco dependence. Plan: Plan dated November 26, 2023. The patient will continue on appropriate medications including bronchodilators, corticosteroids, etc. We will continue to follow, make recommendations along the way. The patient was started on empiric antibiotics. Procalcitonin level was a bit elevated at 0.35. Labs, x-rays, and medications are reviewed. Prognosis is guarded. Time with Patient: Less than 30
[2023-11-26 16:14] LABS: Glucose,Whole Blood 111 mg/dL (70-110)
[2023-11-26 20:05] LABS: Glucose,Whole Blood 135 mg/dL (70-110)
[2023-11-26] MEDS: FORMOTEROL FUMARATE 20 MCG/2 ML NEBU INHALATION SCH (21:24)
[2023-11-26] MEDS: BUDESONIDE 1 MG/2 ML NEBU INHALATION SCH (21:24)
[2023-11-27 06:05] LABS: Glucose,Whole Blood 127 mg/dL (70-110)
--- NOTE | 2023-11-27 06:15 | P.PN ---
Subjective Progress Note Date: 11/26/23 HISTORY OF PRESENT ILLNESS: 73-year-old one of my office patient well-known for long time with past medical history of COPD, mild arrhythmia, history of hypertension, hyperlipidemia, chronic osteoarthritis, chronic vascular cellulitis, mild hyperglycemia, who is known to have advanced COPD with remote history of smoking for long time adequate close to 2 years ago. She was hospitalized last time in December 2021 with COPD exacerbation and severe dyspnea with shortness of breath and has done well. She has been seen pulmonary, cardiology and our service on more regular basis and has been doing well. According to patient developed to have much worsening shortness of breath with dyspnea with minimal exertion for the last 2 weeks become significantly worse last few days that she was not able to stand up and walk has been falling many times she developed to have significant weakness in the upper part of her body. For the last few days developed to have worsening shortness of breath with cough productive of yellow phlegm with low-grade temperature 99.9 with significant expiratory expiratory wheezes patient become more bedbound and started having slight change in mental status with mild confusion. She ended up coming to the emergency department at [facility] where was seen and evaluated, original EKG showed mild tachycardia with no major change. Her troponin came back mildly elevated. White blood cell was 12,700 with left shifted platelet count 518, normal PT/INR electrolyte with mildly hypokalemia slightly elevated blood sugar at 157 with magnesium of 2.4. BNP was 1820 with COVID, influenza and RSV are all negative. Chest x-ray showed peripheral right midlung and left lower field infiltrate correlate with atelectasis versus pneumonia with sign of COPD. Patient was started on O2, updraft treatment on the clock, Solu-Medrol, Rocephin and azithromycin and admit patient to the hospital at this point. 11/25/2023: She is feeling slightly better today, was seen pulmonary service last night agree with the current plan, being on antibiotic along with steroid. With higher oxygen level through the night she is feeling much better. She is not running fever anymore at this point. For another chest x-ray tomorrow the meanwhile continue aggressive management for COPD. She will be seeing cardiology today her troponin become lower with the last 1 but still slightly bit abnormal. Also she is known to have ascending thoracic aneurysm seen vascular and need probably follow-up CAT scan late in the summer this year 4. 11/26/2023: She is doing very bit better today with significant decrease shortness of breath compared to yesterday. 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 Continue corticosteroid along with bronchodilator continue antibiotics as well. REVIEW OF SYSTEMS Constitutional: No fever, no chills, no night sweats. No weight change. No weakness, fatigue or lethargy. No daytime sleepiness. EENT: No headache. No blurred vision or double vision, no loss of vision. No loss of Hearing, no ringing in the ears, no dizziness. No nasal drainage or congestion. No epistaxis. No sore throat. Lungs: Reports shortness of breath, cough, no sputum production. Reports wheezing. Cardiovascular: No chest pain, no lower extremity edema. No palpitations. No paroxysmal nocturnal dyspnea. No orthopnea. No lightheadedness or dizziness. No syncopal episodes. Abdominal: No abdominal pain. No nausea, vomiting. No diarrhea. No constipation. No bloody or tarry stools. No loss of appetite. Genitourinary: No dysuria, increased frequency, urgency. No urinary retention. Musculoskeletal: No myalgias. No muscle weakness, no gait dysfunction, no frequent falls. No back pain. No neck pain. Integumentary: No wounds, no lesions. No rash or pruritus. No unusual bruising. No change in hair or nails. Neurologic: No aphasia. No facial droop. No change in mentation. No head injury. No headache. No paralysis. No paresthesia. Psychiatric: No depression. No anxiety. No mood swings. Endocrine: No abnormal blood sugars. No weight change. No excessive sweating or thirst. No cold intolerance. PHYSICAL EXAMINATION Gen: This is a 70-year-old female. She is resting in bed and appears to be comfortable. No acute respiratory distress noted. HEENT: Head is atraumatic, normocephalic. Pupils equal, round. Sclerae is anicteric. NECK: Supple. No JVD. No lymphadenopathy. No thyromegaly. LUNGS: Bilateral expiratory wheeze and rhonchiClear to auscultation. No wheezes or rhonchi. No intercostal retractions. HEART: Regular rate and rhythm. No murmur. ABDOMEN: Soft. Bowel sounds are present. No masses. No tenderness. EXTREMITIES: No pedal edema. No calf tenderness. NEUROLOGICAL: Patient is awake, alert and oriented with slight confusion. Cranial nerves 2 through 12 are grossly intact. Has been able to do any gait exam. ASSESSMENT AND PLAN: _Acute on chronic respiratory failure: Secondary to severe COPD, hypoxia, bilateral pneumonia, with most likely generalized myalgia. Will continue O2, updraft, steroid, pulmonary consultation. Still seen pulmonary agree with the current management and plan. _COPD exacerbation: Continue bronchodilator nebulizer along with Solu-Medrol steroid nebulizer. Feeling much better compared to last 48 hours. _Acute severe bilateral pneumonia, with right middle lobe and left lower lobe, ER started patient on Rocephin and azithromycin which is reasonable coverage at this point we will continue current medication for any reason patient continued to be more symptomatic will expand coverage to cover gram-negative and cover patient for aspiration as well. Will continue antibiotics will switch to oral in a day or 2. _Severe myalgia: Being off statin at this point and having to be on higher dose of steroid had helped within overnight. [place] much better being off statin and on steroid. _Mildly elevated troponin with possible non-ST CA type II: Consult cardiology, CT with troponin x 3 will be done repeat EKG in the morning. Seen cardiology no sign of CA at this point and troponin trend down. 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 _Hypertension: Was on Zestril 5 mg a day titrate dose higher try to keep syst olic blood pressure below 140. _Hyperlipidemia: Was on rosuvastatin 10 mg a day with a significant complaint of myalgia continue to be off rosuvastatin for now. _Chronic depression and help with smoking cessation: Patient remain on Wellbutrin 75 mg twice a day resume medication. _Hypokalemia:_Continue potassium replacement therapy for now. _Hyperglycemia: Continue Accu-Chek with sliding scale coverage. Prognosis: Fair. Discussion will continue current management increase activity and hopefully possible discharge in 48 to 72 hours. Objective - Vital Signs Vital signs: Vital Signs Temp 98.0 F 11/26/23 04:36 Pulse 88 11/26/23 04:36 Resp 20 11/26/23 04:36 BP 126/80 11/26/23 04:36 Pulse Ox 93 L 11/26/23 04:36 FiO2 Intake & Output 11/25/23 11/25/23 11/26/23 06:59 18:59 06:59 Intake Total 800 1078 Balance 800 1078 Weight 72.575 kg Intake: Intake, IV Titration 800 900 Amount Azithromycin 500 mg In 250 Sodium Chloride 0.9% 250 ml @ 250 mls/hr IVPB DAILY@1500 [facility] Rx#: [id number] Sodium Chloride 0.9% 1, 750 600 000 ml @ 75 mls/hr IV . [id number] [facility] Rx#:[id number] cefTRIAXone 1 gm In 50 50 Sodium Chloride 0.9% 50 ml @ 100 mls/hr IVPB Q24H [facility] Rx#:[id number] Oral 178 Other: Voiding Method Toilet Toilet # Voids 1 4 1 # Bowel Movements 1 - Labs CBC & Chem 7: 11/26/23 09:15 11/26/23 09:19 Labs: Abnormal Lab Results - Last 24 Hours (Table) 11/25/23 11/25/23 11/25/23 Range/Units 00:04 06:15 11:21 POC Glucose (mg/dL) 124 H 125 H (70-110) mg/dL Procalcitonin 0.35 H (0.02-0.09) ng/mL 11/25/23 11/25/23 Range/Units 16:46 19:59 POC Glucose (mg/dL) 120 H 119 H (70-110) mg/dL Procalcitonin (0.02-0.09) ng/mL Microbiology - Last 24 Hours (Table) 11/24/23 12:40 Blood Culture - Preliminary Blood 11/24/23 12:55 Blood Culture - Preliminary Blood
--- NOTE | 2023-11-27 07:43 | XR ---
EXAMINATION TYPE: XR chest 2V DATE OF EXAM: 11/27/2023 COMPARISON: 11/24/2023 HISTORY: Shortness of breath TECHNIQUE: Frontal and lateral views of the chest are obtained. FINDINGS: Scattered senescent parenchymal changes noted. Hyperinflation compatible with COPD. Patchy infiltrate right upper lobe persists and may be slightly improved. There is also patchy densit y left lower lobe. Continued follow-up is advised. Heart size is stable. Mediastinal structures are stable and grossly unremarkable. No evidence for hilar prominence. Degenerative changes dorsal spine. IMPRESSION: 1. Patchy infiltrate right upper lobe persists and may be slightly improved. There is also patchy den sity left lower lobe. Continued follow-up is advised.
[2023-11-27 11:38] LABS: Glucose,Whole Blood 113 mg/dL (70-110)
--- NOTE | 2023-11-27 11:46 | P.PN ---
Subjective Progress Note Date: 11/27/23 Principal diagnosis: Shortness of breath. Patient is a 73-year-old white female with past medical history significant for severe COPD, hyperlipidemia, hypertension, and former tobacco dependence. Her primary care provider is Dr. Hernandez. She does follow in the pulmonary office w lindsey Chandra for management of her severe chronic obstructive pulmonary disease. She has an FEV1 42% of predicted. She is maintained on a combination of Symbicort and as needed albuterol inhalers. Patient presented to the emergency room yesterday afternoon complaining acute on chronic shortness of breath. She is also had an associated nonproductive cough, sore throat, and hoarse voice. She denies sick contacts. She does have recent history of acute COVID infection in August,. She states that she never completely recovered from this, but is particularly worse since last Friday. She has had a chest CT with contrast on 11/17/2023 which showed marked emphysematous changes. Small focal area of interstitial changes in the right lung base, mostly likely chronic interstitial changes. New 7 mm pleural/parenchymal nodule in the left upper lobe posteriorly, likely benign. 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 Patient is currently sitting up in bed, on 2 L/min nasal cannula, in no acute distress. Chest x-ray this admission showed a peripheral right midlung and left lower lung field infiltrates. Possible atelectasis versus developing pneumonia. Negative for influenza, RSV, COVID. CBC includes a WBC count of 12.7, hemoglobin 13.8, hematocrit 42.6, platelets 518. BMP unremarkable. Normal saline infusing at 75 ml/hr. Troponins are elevated, but trending down, most recent result 0.019. NT proBNP 1820. Afebrile. Nontoxic appearance. Vital signs are stable. Progress note dated November 25. 73-year-old female with history of severe COPD, seen today in room 380. The patient is feeling about the same, may be slightly better than she did yesterday. She was seen in consultation yesterday. She continues on 2 L of oxygen. We have her on updrafts with albuterol sulfate and ipratropium bromide, Solu-Medrol, and Symbicort inhaler. The Symbicort inhaler will be changed to budesonide, and formoterol, twice a day. Current labs include a white count 11.4, hemoglobin 13.3, hematocrit 43.1, and a platelet count of 570,000. Sodium 138, potassium 4.1, chlorides 104, CO2 23, BUN 27, creatinine 0.58. Glucose 156. Albumin 3.1. N-terminal proBNP is 2290. Progress note dated November 27, 2023. 73-year-old female with a history of severe COPD, admitted with a COPD exacerbation. Currently, the patient is on 2 L of oxygen. She is not receiving any IV fluids. She is feeling a bit better today, and actually looks a bit better today. She is sitting in a chair, next to her hospital bed. She appears to be a bit depressed. She is receiving DuoNebs, budesonide, formoterol, and corticosteroids. Labs today include a glucose of 113. Cultures are currently negative. Chest x-ray shows a patchy infiltrate, right upper lobe, which is improved. There is also patchy density in the left lower lobe. Objective - Vital Signs Vital signs: Vital Signs Temp 97.6 F 11/27/23 08:15 Pulse 74 11/27/23 11:39 Resp 18 11/27/23 08:20 BP 116/66 11/27/23 08:15 Pulse Ox 97 11/27/23 08:15 FiO2 Intake & Output 11/26/23 11/27/23 11/27/23 18:59 06:59 18:59 Intake Total 220 1080 240 Balance 220 1080 240 Intake: Oral 220 1080 240 Other: Voiding Method Toilet Toilet Toilet # Voids 1 1 - Exam No acute distress, oriented 3. Currently on 2 L of oxygen. No conversational dyspnea or use of accessory muscles. HEENT examination is grossly unremarkable. Mucous membranes are moist. No oral lesions. Neck supple. Full range of motion. No adenopathy thyromegaly or neck vein distention. Cardiovascular examination reveals regular rhythm rate. S1-S2 normal. No S3 or S4. No discernible murmur noted. Heart rate 74 bpm. Heart sounds are distant. Lungs reveal expiratory rhonchi and wheezes. Breath sounds equal but diminished throughout. No crackles. 2 L saturation is 97 %. Abdomen soft bowel sounds are heard. No masses or tenderness. Extremities are intact. No cyanosis clubbing or edema. Skin is without rash or lesion. Neurologic examination is brief but nonfocal. - Labs CBC & Chem 7: 11/26/23 09:15 11/26/23 09:19 Labs: Abnormal Lab Results - Last 24 Hours (Table) 11/26/23 11/26/23 11/27/23 Range/Units 16:13 20:04 06:03 POC Glucose (mg/dL) 111 H 135 H 127 H (70-110) mg/dL 11/27/23 Range/Units 11:37 POC Glucose (mg/dL) 113 H (70-110) mg/dL Microbiology - Last 24 Hours (Table) 11/24/23 12:40 Blood Culture - Preliminary Blood 11/24/23 12:55 Blood Culture - Preliminary Blood Assessment and Plan Assessment: Acute COPD exacerbation, Chest x-ray this admission showed a peripheral right midlung and left lower lung field infiltrates. Could reflect atelectasis versus developing pneumonia. Negative for influenza, RSV, COVID. Acute on chronic shortness of breath, secondary to above. Recent COVID-19 infection. Voice hoarseness, possible laryngitis. Severe chronic obstructive pulmonary disease, with an FEV1 42% of predicted. New 7mm pleural/parenchymal pulmonary nodule, likely benign, however, recommend 6 month follow up outpatient. Elevated troponins, trending down, ACS unlikely. 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 History of hyperlipidemia. History of hypertension. Former tobacco dependence. Plan: Plan dated November 26, 2023. The patient will continue on appropriate medications including bronchodilators, corticosteroids, etc. We will continue to follow, make recommendations along the way. The patient was started on empiric antibiotics. Procalcitonin level was a bit elevated at 0.35. Labs, x-rays, and medications are reviewed. Prognosis is guarded. Plan dated November 27, 2023. The patient is seen today in room 380. She continues on oxygen at 2 L. She is receiving Solu-Medrol, updrafts, and antibiotics, for possible pneumonia. She did have an elevated procalcitonin level. We will continue to follow the patient, make recommendations along the way. Labs, x-rays, and medications are reviewed. The patient is concerned that she may need oxygen post discharge. We will continue to follow. Time with Patient: Less than 30
--- NOTE | 2023-11-27 12:19 | P.PN ---
Subjective HISTORY OF PRESENT ILLNESS: This is a 73-year-old female with a past medical history significant for tobacco abuse, COPD, hypertension, hyperlipidemia and pulmonary hypertension. Patient follows in the office with Dr. Mauricio. We have been asked to see the patient in consultation for elevated troponin. Patient examined at the bedside. Patient presented to the hospital with a chief complaint of shortness of breath. She states she has been short of breath for about 1 week. She also reports having a nonproductive cough. She denies any fever or chills at home. Patient denies any chest pain or pressure. Vital signs are stable. DIAGNOSTICS: - EKG reveals sinus mechanism with no signs of acute ischemia. - Chest xray peripheral right midlung and left lower lung field infiltrates. Correlate for atelectasis or pneumonia.. - Laboratory data: WBC 12.7. Hemoglobin 13.8. Platelet count 518. Sodium 138. Potassium 3.4. BUN 25. Creatinine 0.55. Magnesium 2.4. Procalcitonin 0.35. Troponin 0.058. 0.039. 0.027. 0.019. - Current home cardiac medications include lisinopril 5 mg daily and rosuvastatin 10 mg daily. - Most recent echocardiogram obtained in the office in August 2022 revealed ejection fraction 55 to 60%, moderate LVH - Patient underwent Lexiscan in August 2022 which was negative for ischemia 11/26/2023 Patient examined this morning. She is sitting up in the chair. Patient's family is present. Patient states she is feeling better today. She continues to report shortness of breath although improved. She denies any chest pain or pressure. Vital signs are stable. Echocardiogram completed revealing ejection fraction 65% with no obvious regional wall motion abnormalities, trace MR, mild TR 11/27/2023 Patient examined this morning at the bedside. Patient denies chest pain or pressure. She states her breathing has improved today. Vital signs are stable. She is hoping to be discharged home today. PHYSICAL EXAM: VITAL SIGNS: Reviewed. GENERAL: Well-developed in no acute distress. HEENT: Head is normocephalic. Pupils are equal, round. Sclerae anicteric. Mucous membranes of the mouth are moist. Neck supple. No JVD or thyromegaly LUNGS: Respirations even and unlabored. Lungs with mild expiratory wheezing HEART: Regular rate and rhythm. S1 and S2 heard. ABDOMEN: Soft. Nondistended. Nontender. EXTREMITIES: Normal range of motion. No clubbing or cyanosis. Peripheral pulses intact. No lower extremity edema NEUROLOGIC: Awake and alert. Oriented x 3. ASSESSMENT: Shortness of breath Acute COPD exacerbation Possible pneumonia Abnormal troponins, likely type II IA secondary to oxygen demand and supply mismatch, no evidence of acute coronary syndrome Hypertension Hyperlipidemia Pulmonary hypertension PLAN: An acute coronary event has been ruled out Continue current cardiac medications Pulmonary following. IV steroids per pulmonary medicine. Patient is currently stable from a cardiac perspective We will sign off. Please reconsult if needed. Nurse practitioner note has been reviewed by physician. Signing provider agrees with the documented findings, assessment, and plan of care documented by MARBLE COPER as a scribe. Objective - Vital Signs Vital signs: Vital Signs Temp 97.6 F 11/27/23 08:15 Pulse 74 11/27/23 11:39 Resp 18 11/27/23 08:20 BP 116/66 11/27/23 08:15 Pulse Ox 97 11/27/23 08:15 FiO2 Intake & Output 11/26/23 11/27/23 11/27/23 18:59 06:59 18:59 Intake Total 220 1080 240 Balance 220 1080 240 Intake: Oral 220 1080 240 Other: Voiding Method Toilet Toilet Toilet # Voids 1 1 - Labs CBC & Chem 7: 11/26/23 09:15 11/26/23 09:19 Labs: Abnormal Lab Results - Last 24 Hours (Table) 11/26/23 11/26/23 11/27/23 Range/Units 16:13 20:04 06:03 POC Glucose (mg/dL) 111 H 135 H 127 H (70-110) mg/dL 11/27/23 Range/Units 11:37 POC Glucose (mg/dL) 113 H (70-110) mg/dL Microbiology - Last 24 Hours (Table) 11/24/23 12:40 Blood Culture - Preliminary Blood 11/24/23 12:55 Blood Culture - Preliminary Blood
[2023-11-27 16:55] LABS: Glucose,Whole Blood 123 mg/dL (70-110)
[2023-11-27 20:03] LABS: Glucose,Whole Blood 146 mg/dL (70-110)
[2023-11-27] MEDS: NYSTATIN 100,000 UNIT/ML SUSP 500,000 UNIT/5 ML CUP PO SCH (20:06)
[2023-11-28 06:19] LABS: Glucose,Whole Blood 122 mg/dL (70-110)
[2023-11-28] MEDS: DOXYCYCLINE 100 MG CAP PO SCH (10:58)
[2023-11-28 11:43] LABS: Glucose,Whole Blood 133 mg/dL (70-110)
--- NOTE | 2023-11-28 12:10 | P.PN ---
Subjective Progress Note Date: 11/28/23 Principal diagnosis: Shortness of breath. Patient is a 73-year-old white female with past medical history significant for severe COPD, hyperlipidemia, hypertension, and former tobacco dependence. Her primary care provider is Dr. Hernandez. She does follow in the pulmonary office w lindsey Chandra for management of her severe chronic obstructive pulmonary disease. She has an FEV1 42% of predicted. She is maintained on a combination of Symbicort and as needed albuterol inhalers. Patient presented to the emergency room yesterday afternoon complaining acute on chronic shortness of breath. She is also had an associated nonproductive cough, sore throat, and hoarse voice. She denies sick contacts. She does have recent history of acute COVID infection in August,. She states that she never completely recovered from this, but is particularly worse since last Friday. She has had a chest CT with contrast on 11/17/2023 which showed marked emphysematous changes. Small focal area of interstitial changes in the right lung base, mostly likely chronic interstitial changes. New 7 mm pleural/parenchymal nodule in the left upper lobe posteriorly, likely benign. 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 Patient is currently sitting up in bed, on 2 L/min nasal cannula, in no acute distress. Chest x-ray this admission showed a peripheral right midlung and left lower lung field infiltrates. Possible atelectasis versus developing pneumonia. Negative for influenza, RSV, COVID. CBC includes a WBC count of 12.7, hemoglobin 13.8, hematocrit 42.6, platelets 518. BMP unremarkable. Normal saline infusing at 75 ml/hr. Troponins are elevated, but trending down, most recent result 0.019. NT proBNP 1820. Afebrile. Nontoxic appearance. Vital signs are stable. Progress note dated November 25. 73-year-old female with history of severe COPD, seen today in room 380. The patient is feeling about the same, may be slightly better than she did yesterday. She was seen in consultation yesterday. She continues on 2 L of oxygen. We have her on updrafts with albuterol sulfate and ipratropium bromide, Solu-Medrol, and Symbicort inhaler. The Symbicort inhaler will be changed to budesonide, and formoterol, twice a day. Current labs include a white count 11.4, hemoglobin 13.3, hematocrit 43.1, and a platelet count of 570,000. Sodium 138, potassium 4.1, chlorides 104, CO2 23, BUN 27, creatinine 0.58. Glucose 156. Albumin 3.1. N-terminal proBNP is 2290. Progress note dated November 27, 2023. 73-year-old female with a history of severe COPD, admitted with a COPD exacerbation. Currently, the patient is on 2 L of oxygen. She is not receiving any IV fluids. She is feeling a bit better today, and actually looks a bit better today. She is sitting in a chair, next to her hospital bed. She appears to be a bit depressed. She is receiving DuoNebs, budesonide, formoterol, and corticosteroids. Labs today include a glucose of 113. Cultures are currently negative. Chest x-ray shows a patchy infiltrate, right upper lobe, which is improved. There is also patchy density in the left lower lobe. Progress note dated November 28, 2023. 73-year-old female with history of severe COPD, admitted with a COPD exacerbation. The patient is doing a bit better today. She continues on oxygen at 2 L. She is not receiving any IV fluids. She actually walked the hallway a bit. She is on appropriate medications. Today, we change her budesonide and formoterol to Symbicort. We also change her IV Solu-Medrol to prednisone. We will also change her IV antibiotic to an oral antibiotic. I am hoping the patient can be discharged tomorrow. Current labs include a glucose of 133. Blood cultures are currently negative. Chest x-ray shows a patchy right upper lobe infiltrate, that is improved. In addition, she has a patchy left lower lobe infiltrate. Objective - Vital Signs Vital signs: Vital Signs Temp 97.9 F 11/28/23 08:00 Pulse 66 11/28/23 11:25 Resp 18 11/28/23 11:25 BP 117/75 11/28/23 11:25 Pulse Ox 96 11/28/23 11:25 FiO2 Intake & Output 11/27/23 11/28/23 11/28/23 18:59 06:59 18:59 Intake Total 1138 1560 540 Balance 1138 1560 540 Intake: Intake, IV Titration 300 300 Amount Azithromycin 500 mg In 250 250 Sodium Chloride 0.9% 250 ml @ 250 mls/hr IVPB DAILY@1500 [facility] Rx#: [id number] cefTRIAXone 1 gm In 50 50 Sodium Chloride 0.9% 50 ml @ 100 mls/hr IVPB Q24H [facility] Rx#:[id number] Oral [id number] Other: Voiding Method Toilet Toilet Toilet # Voids 2 2 1 - Exam No acute distress, oriented 3. Currently on 2 L of oxygen. No conversational dyspnea or use of accessory muscles. HEENT examination is grossly unremarkable. Mucous membranes are moist. No oral lesions. Neck supple. Full range of motion. No adenopathy thyromegaly or neck vein distention. Cardiovascular examination reveals regular rhythm rate. S1-S2 normal. No S3 or S4. No discernible murmur noted. Heart rate 70 bpm. Heart sounds are distant. Lungs reveal expiratory rhonchi and wheezes. Breath sounds equal but diminished throughout. Breath sounds are improved. No crackles. 2 L saturation is 96 %. Abdomen soft bowel sounds are heard. No masses or tenderness. Extremities are intact. No cyanosis clubbing or edema. Skin is without rash or lesion. Neurologic examination is brief but nonfocal. - Labs CBC & Chem 7: 11/26/23 09:15 11/26/23 09:19 Labs: Abnormal Lab Results - Last 24 Hours (Table) 11/27/23 11/27/23 11/28/23 Range/Units 16:54 20:02 06:18 POC Glucose (mg/dL) 123 H 146 H 122 H (70-110) mg/dL 11/28/23 Range/Units 11:41 POC Glucose (mg/dL) 133 H (70-110) mg/dL Microbiology - Last 24 Hours (Table) 11/24/23 12:40 Blood Culture - Preliminary Blood 11/24/23 12:55 Blood Culture - Preliminary Blood Assessment and Plan Assessment: Acute COPD exacerbation, Chest x-ray this admission showed a peripheral right midlung and left lower lung field infiltrates. Could reflect atelectasis versus developing pneumonia. Negative for influenza, RSV, COVID. Acute on chronic shortness of breath, secondary to above. Recent COVID-19 infection. Voice hoarseness, possible laryngitis. Severe chronic obstructive pulmonary disease, with an FEV1 42% of predicted. New 7mm pleural/parenchymal pulmonary nodule, likely benign, however, recommend 6 month follow up outpatient. Elevated troponins, trending down, ACS unlikely. 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 History of hyperlipidemia. History of hypertension. Former tobacco dependence. Plan: Plan dated November 26, 2023. The patient will continue on appropriate medications including bronchodilators, corticosteroids, etc. We will continue to follow, make recommendations along the way. The patient was started on empiric antibiotics. Procalcitonin level was a bit elevated at 0.35. Labs, x-rays, and medications are reviewed. Prognosis is guarded. Plan dated November 27, 2023. The patient is seen today in room 380. She continues on oxygen at 2 L. She is receiving Solu-Medrol, updrafts, and antibiotics, for possible pneumonia. She did have an elevated procalcitonin level. We will continue to follow the patient, make recommendations along the way. Labs, x-rays, and medications are reviewed. The patient is concerned that she may need oxygen post discharge. We will continue to follow. Plan dated November 28, 2023. The patient appears to be improved. She was actually walking the hallway earlier today. She continues on oxygen at 2 L. The patient's Solu-Medrol was converted to prednisone. In addition, the budesonide and formoterol is changed to Symbicort. Finally, the ceftriaxone is continued, in favor of doxycycline 100 mg twice a day. Labs, x-rays, and medications are reviewed. Were hoping the patient is stable for discharge tomorrow. Time with Patient: Less than 30
--- NOTE | 2023-11-28 16:07 | P.PN ---
Subjective Progress Note Date: 11/28/23 This is a pleasant 73-year-old female who follows with Dr. Hernandez. Patient is being treated for an acute COPD exacerbation as well as hypoxemic respiratory failure. She maintains on 2 L of oxygen with oxygen saturations of 95% would recommend to wean as tolerated. Being followed closely by pulmonary and cardiology services. She continues on steroids was started on an oral prednisone taper today. Additionally she continues on IV ceftriaxone. She is reporting improvement in her shortness of breath and does state that she continues have a cough mostly nonproductive but feels like it is breaking up some. She is continued on Mucinex. Procalcitonin mildly elevated at 0.35. Review of Systems Constitutional: Denied any fatigue denied any fever. Cardio vascular: denied any chest pain, palpitations Gastrointestinal: denied any nausea, vomiting, diarrhea Pulmonary: Denied any shortness of breath cough Neurologic denied any new focal deficits All inpatient medications were reviewed and appropriate changes in these medications as dictated in the interval history and assessment and plan. PHYSICAL EXAMINATION: GENERAL: The patient is alert and oriented x3, not in any acute distress. Well developed, well nourished. HEENT: Pupils are round and equally reacting to light. EOMI. No scleral icterus. No conjunctival pallor. Normocephalic, atraumatic. No pharyngeal erythema. No thyromegaly. CARDIOVASCULAR: S1 and S2 present. No murmurs, rubs, or gallops. PULMONARY: Chest is clear to auscultation, no wheezing or crackles. ABDOMEN: Soft, nontender, nondistended, normoactive bowel sounds. No palpable organomegaly. MUSCULOSKELETAL: No joint swelling or deformity. EXTREMITIES: No cyanosis, clubbing, or pedal edema. NEUROLOGICAL: Gross neurological examination did not reveal any focal deficits. SKIN: No rashes. Assessment and Plan -Acute on chronic respiratory failure: Secondary to severe COPD, hypoxia, bilateral pneumonia. Will continue O2, updraft, steroid, pulmonary consultation. -COPD exacerbation: Continue bronchodilator nebulizer along with Solu-Medrol steroid nebulizer. -Acute severe bilateral pneumonia, with right middle lobe and left lower lobe. Procalcitonin level 0.35 on IV ceftriaxone. -Severe myalgia, significantly improved. Was resumed on statin therapy. -Mildly elevated troponin with possible non-ST RI type II: Seen cardiology no sign of RI at this point and troponin trend down. 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 -Hyperlipidemia -Chronic depression and help with smoking cessation: Patient remain on Wellbutrin 75 mg twice a day -Hypokalemia:Continue potassium replacement therapy for now. -Hyperglycemia: Continue Accu-Chek with sliding scale coverage. GI prophylaxis DVT prophylaxis Continue oral prednisone taper and IV ceftriaxone. Wean oxygen as tolerated. Pulmonary following closely. Possible D/C home in the next 24 hours. The impression and plan of care has been dictated by Paradise Mathews Nurse Practitioner as directed. Dr. Naomi MD I have performed a history and physical examination and medical decision making of this patient, discussed the same with the dictator, and agree with the dictators assessment and plan as written, documented as a scribe. Based on total visit time, I have performed more than 50% of this visit. Objective - Vital Signs Vital signs: Vital Signs Temp 97.8 F 11/28/23 15:42 Pulse 78 11/28/23 15:42 Resp 18 11/28/23 15:42 BP 114/74 11/28/23 15:42 Pulse Ox 94 L 11/28/23 15:42 FiO2 Intake & Output 11/27/23 11/28/23 11/28/23 18:59 06:59 18:59 Intake Total 1138 1560 658 Balance 1138 1560 658 Intake: Intake, IV Titration 300 300 Amount Azithromycin 500 mg In 250 250 Sodium Chloride 0.9% 250 ml @ 250 mls/hr IVPB DAILY@1500 [facility] Rx#: [id number] cefTRIAXone 1 gm In 50 50 Sodium Chloride 0.9% 50 ml @ 100 mls/hr IVPB Q24H [facility] Rx#:[id number] Oral [id number] Other: Voiding Method Toilet Toilet Toilet # Voids 2 2 1 - Labs CBC & Chem 7: 11/26/23 09:15 11/26/23 09:19 Labs: Abnormal Lab Results - Last 24 Hours (Table) 11/27/23 11/27/23 11/28/23 Range/Units 16:54 20:02 06:18 POC Glucose (mg/dL) 123 H 146 H 122 H (70-110) mg/dL 11/28/23 Range/Units 11:41 POC Glucose (mg/dL) 133 H (70-110) mg/dL Microbiology - Last 24 Hours (Table) 11/24/23 12:40 Blood Culture - Preliminary Blood 11/24/23 12:55 Blood Culture - Preliminary Blood Assessment and Plan Time with Patient: Less than 30
[2023-11-28 16:21] LABS: Glucose,Whole Blood 101 mg/dL (70-110)
[2023-11-28 20:06] LABS: Glucose,Whole Blood 106 mg/dL (70-110)
[2023-11-28] MEDS: SYMBICORT 160-4.5 MCG INHALER INHALATION SCH (20:58)
[2023-11-29 06:10] LABS: Glucose,Whole Blood 74 mg/dL (70-110)
[2023-11-29] MEDS: predniSONE 50 MG TAB PO SCH (09:00)
[2023-11-29 11:51] LABS: Glucose,Whole Blood 88 mg/dL (70-110)
--- NOTE | 2023-11-29 13:14 | P.PN ---
Subjective Progress Note Date: 11/29/23 Principal diagnosis: Shortness of breath. Patient is a 73-year-old white female with past medical history significant for severe COPD, hyperlipidemia, hypertension, and former tobacco dependence. Her primary care provider is Dr. Hernandez. She does follow in the pulmonary office w lindsey Chandra for management of her severe chronic obstructive pulmonary disease. She has an FEV1 42% of predicted. She is maintained on a combination of Symbicort and as needed albuterol inhalers. Patient presented to the emergency room yesterday afternoon complaining acute on chronic shortness of breath. She is also had an associated nonproductive cough, sore throat, and hoarse voice. She denies sick contacts. She does have recent history of acute COVID infection in August,. She states that she never completely recovered from this, but is particularly worse since last Friday. She has had a chest CT with contrast on 11/17/2023 which showed marked emphysematous changes. Small focal area of interstitial changes in the right lung base, mostly likely chronic interstitial changes. New 7 mm pleural/parenchymal nodule in the left upper lobe posteriorly, likely benign. 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 Patient is currently sitting up in bed, on 2 L/min nasal cannula, in no acute distress. Chest x-ray this admission showed a peripheral right midlung and left lower lung field infiltrates. Possible atelectasis versus developing pneumonia. Negative for influenza, RSV, COVID. CBC includes a WBC count of 12.7, hemoglobin 13.8, hematocrit 42.6, platelets 518. BMP unremarkable. Normal saline infusing at 75 ml/hr. Troponins are elevated, but trending down, most recent result 0.019. NT proBNP 1820. Afebrile. Nontoxic appearance. Vital signs are stable. Progress note dated November 25. 73-year-old female with history of severe COPD, seen today in room 380. The patient is feeling about the same, may be slightly better than she did yesterday. She was seen in consultation yesterday. She continues on 2 L of oxygen. We have her on updrafts with albuterol sulfate and ipratropium bromide, Solu-Medrol, and Symbicort inhaler. The Symbicort inhaler will be changed to budesonide, and formoterol, twice a day. Current labs include a white count 11.4, hemoglobin 13.3, hematocrit 43.1, and a platelet count of 570,000. Sodium 138, potassium 4.1, chlorides 104, CO2 23, BUN 27, creatinine 0.58. Glucose 156. Albumin 3.1. N-terminal proBNP is 2290. Progress note dated November 27, 2023. 73-year-old female with a history of severe COPD, admitted with a COPD exacerbation. Currently, the patient is on 2 L of oxygen. She is not receiving any IV fluids. She is feeling a bit better today, and actually looks a bit better today. She is sitting in a chair, next to her hospital bed. She appears to be a bit depressed. She is receiving DuoNebs, budesonide, formoterol, and corticosteroids. Labs today include a glucose of 113. Cultures are currently negative. Chest x-ray shows a patchy infiltrate, right upper lobe, which is improved. There is also patchy density in the left lower lobe. Progress note dated November 28, 2023. 73-year-old female with history of severe COPD, admitted with a COPD exacerbation. The patient is doing a bit better today. She continues on oxygen at 2 L. She is not receiving any IV fluids. She actually walked the hallway a bit. She is on appropriate medications. Today, we change her budesonide and formoterol to Symbicort. We also change her IV Solu-Medrol to prednisone. We will also change her IV antibiotic to an oral antibiotic. I am hoping the patient can be discharged tomorrow. Current labs include a glucose of 133. Blood cultures are currently negative. Chest x-ray shows a patchy right upper lobe infiltrate, that is improved. In addition, she has a patchy left lower lobe infiltrate. Progress note dated November 29, 2023. 73-year-old female with history of severe COPD. She was admitted with a diagnosis of COPD exacerbation. Today, the patient is doing much better. She is currently off oxygen. She is not receiving any IV fluids. She does have an appointment to see me in the office, on Friday. From my perspective, the patient could be discharged home, but we will leave that up to the hospital service. The patient should go home on prednisone with a burst and taper, beginning with 40 to 50 mg. No new labs today other than a glucose of 88. The patient's is at the bedside. I did tell the patient, if she went home, she would really have to take it easy, the rest of today, Friday, and Friday. As mentioned above, she does have an appointment to see me on Friday. Objective - Vital Signs Vital signs: Vital Signs Temp 97.4 F L 11/29/23 08:00 Pulse 76 11/29/23 12:00 Resp 16 11/29/23 12:00 BP 112/74 11/29/23 12:00 Pulse Ox 92 L 11/29/23 12:00 FiO2 Intake & Output 11/28/23 11/29/23 11/29/23 18:59 06:59 18:59 Intake Total 1016 540 118 Balance 1016 540 118 Intake: Oral 1016 540 118 Other: Voiding Method Toilet Toilet # Voids 3 1 - Exam No acute distress, oriented 3. Currently on room air. No conversational dyspnea or use of accessory muscles. HEENT examination is grossly unremarkable. Mucous membranes are moist. No oral lesions. Neck supple. Full range of motion. No adenopathy thyromegaly or neck vein distention. Cardiovascular examination reveals regular rhythm rate. S1-S2 normal. No S3 or S4. No discernible murmur noted. Heart rate 76 bpm. Heart sounds are distant. Lungs reveal expiratory rhonchi and wheezes. Breath sounds equal but diminished throughout. Breath sounds are improved. No crackles. Room air saturation is 92%. Abdomen soft bowel sounds are heard. No masses or tenderness. Extremities are intact. No cyanosis clubbing or edema. Skin is without rash or lesion. Neurologic examination is brief but nonfocal. - Labs CBC & Chem 7: 11/26/23 09:15 11/26/23 09:19 Assessment and Plan Assessment: Acute COPD exacerbation, Chest x-ray this admission showed a peripheral right midlung and left lower lung field infiltrates. Could reflect atelectasis versus developing pneumonia. Negative for influenza, RSV, COVID. Acute on chronic shortness of breath, secondary to above. Recent COVID-19 infection. Voice hoarseness, possible laryngitis. Severe chronic obstructive pulmonary disease, with an FEV1 42% of predicted. New 7mm pleural/parenchymal pulmonary nodule, likely benign, however, recommend 6 month follow up outpatient. Elevated troponins, trending down, ACS unlikely. 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 History of hyperlipidemia. History of hypertension. Former tobacco dependence. Plan: Plan dated November 26, 2023. The patient will continue on appropriate medications including bronchodilators, corticosteroids, etc. We will continue to follow, make recommendations along the way. The patient was started on empiric antibiotics. Procalcitonin level was a bit elevated at 0.35. Labs, x-rays, and medications are reviewed. Cesar singh is guarded. Plan dated November 27, 2023. The patient is seen today in room 380. She continues on oxygen at 2 L. She is receiving Solu-Medrol, updrafts, and antibiotics, for possible pneumonia. She did have an elevated procalcitonin level. We will continue to follow the patient, make recommendations along the way. Labs, x-rays, and medications are reviewed. The patient is concerned that she may need oxygen post discharge. We will continue to follow. Plan dated November 28, 2023. The patient appears to be improved. She was actually walking the hallway earlier today. She continues on oxygen at 2 L. The patient's Solu-Medrol was converted to prednisone. In addition, the budesonide and formoterol is changed to Symbicort. Finally, the ceftriaxone is continued, in favor of doxycycline 100 mg twice a day. Labs, x-rays, and medications are reviewed. Were hoping the patient is stable for discharge tomorrow. Plan dated November 29, 2023. The patient is doing much better. The patient is much more stable, and her breathing is much improved. The patient continues on appropriate medications. We will continue to follow, make recommendations along the way. In my opinion, the patient could be considered for possible discharge. The patient does have an appointment to see me on Friday, in the office. Additional recommendations and suggestions are forthcoming. The patient is currently on Symbicort, and prednisone. Labs, x-rays, and medications are reviewed. Time with Patient: Less than 30
--- NOTE | 2023-11-29 14:49 | P.PN ---
Subjective Progress Note Date: 11/29/23 This is a pleasant 73-year-old female who follows with Dr. Hernandez. Patient is being treated for an acute COPD exacerbation as well as hypoxemic respiratory failure. She maintains on 2 L of oxygen with oxygen saturations of 95% would recommend to wean as tolerated. Being followed closely by pulmonary and cardiology services. She continues on steroids was started on an oral prednisone taper today. Additionally she continues on IV ceftriaxone. She is reporting improvement in her shortness of breath and does state that she continues have a cough mostly nonproductive but feels like it is breaking up some. She is continued on Mucinex. Procalcitonin mildly elevated at 0.35. 11/29/2023 Patient seen and evaluated in follow-up today. She was able to be weaned off of the oxygen while at rest however when she is up ambulating her oxygen saturations did drop to an 86 to 87%. Patient prefer not to be discharged home with oxygen therapy will continue to monitor the patient overnight and continue on current course of oral antibiotics and oral prednisone. She does report improvement in her symptoms and is feeling less shortness of breath. Review of Systems Constitutional: Denied any fatigue denied any fever. Cardio vascular: denied any chest pain, palpitations Gastrointestinal: denied any nausea, vomiting, diarrhea Pulmonary: Denied any shortness of breath cough Neurologic denied any new focal deficits All inpatient medications were reviewed and appropriate changes in these medications as dictated in the interval history and assessment and plan. PHYSICAL EXAMINATION: GENERAL: The patient is alert and oriented x3, not in any acute distress. Well developed, well nourished. HEENT: Pupils are round and equally reacting to light. EOMI. No scleral icterus. No conjunctival pallor. Normocephalic, atraumatic. No pharyngeal erythema. No thyromegaly. CARDIOVASCULAR: S1 and S2 present. No murmurs, rubs, or gallops. PULMONARY: Chest is clear to auscultation, no wheezing or crackles. ABDOMEN: Soft, nontender, nondistended, normoactive bowel sounds. No palpable organomegaly. MUSCULOSKELETAL: No joint swelling or deformity. EXTREMITIES: No cyanosis, clubbing, or pedal edema. NEUROLOGICAL: Gross neurological examination did not reveal any focal deficits. SKIN: No rashes. Assessment and Plan -Acute on chronic respiratory failure: Secondary to severe COPD, hypoxia, bilateral pneumonia. Will continue O2, updraft, steroid, pulmonary consultation. -COPD exacerbation: Continue bronchodilator nebulizer along with Solu-Medrol steroid nebulizer. -Acute severe bilateral pneumonia, with right middle lobe and left lower lobe. Procalcitonin level 0.35 on IV ceftriaxone. -Severe myalgia, significantly improved. Was resumed on statin therapy. -Mildly elevated troponin with possible non-ST MS type II: Seen cardiology no sign of MS at this point and troponin trend down. 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 -Hyperlipidemia -Chronic depression and help with smoking cessation: Patient remain on Wellbutrin 75 mg twice a day -Hypokalemia:Continue potassium replacement therapy for now. -Hyperglycemia: Continue Accu-Chek with sliding scale coverage. GI prophylaxis DVT prophylaxis Continue oral prednisone taper antibiotics and then changed to oral doxycycline for a 5-day course. Wean oxygen as tolerated. Pulmonary following closely. Possible D/C home in the next 24 hours. The impression and plan of care has been dictated by Paradise Mathews, Nurse Prac titioner as directed. Dr. Naomi MD I have performed a history and physical examination and medical decision making of this patient, discussed the same with the dictator, and agree with the dictators assessment and plan as written, documented as a scribe. Based on total visit time, I have performed more than 50% of this visit. Objective - Vital Signs Vital signs: Vital Signs Temp 97.4 F L 11/29/23 08:00 Pulse 76 11/29/23 12:00 Resp 16 11/29/23 12:00 BP 112/74 11/29/23 12:00 Pulse Ox 92 L 11/29/23 12:00 FiO2 Intake & Output 11/28/23 11/29/23 11/29/23 18:59 06:59 18:59 Intake Total 1016 540 118 Balance 1016 540 118 Intake: Oral 1016 540 118 Other: Voiding Method Toilet Toilet # Voids 3 1 - Labs CBC & Chem 7: 11/26/23 09:15 11/26/23 09:19 Assessment and Plan Time with Patient: Less than 30
[2023-11-29 16:54] LABS: Glucose,Whole Blood 107 mg/dL (70-110)
[2023-11-29 19:57] LABS: Glucose,Whole Blood 126 mg/dL (70-110)
[2023-11-30 06:39] LABS: Glucose,Whole Blood 75 mg/dL (70-110)
--- NOTE | 2023-11-30 11:41 | P.PN ---
Subjective Progress Note Date: 11/30/23 Patient is a 73-year-old white female with past medical history significant for severe COPD, hyperlipidemia, hypertension, and former tobacco dependence. Her primary care provider is Dr. Hernandez. She does follow in the pulmonary office with Dr. Chandra for management of her severe chronic obstructive pulmonary disease. She has an FEV1 42% of predicted. She is maintained on a combination of Symbicort and as needed albuterol inhalers. Patient presented to the emergency room yesterday afternoon complaining acute on chronic shortness of breath. She is also had an associated nonproductive cough, sore throat, and hoarse voice. She denies sick contacts. She does have recent history of acute COVID infection in August,. She states that she never completely recovered from this, but is particularly worse since last Friday. She has had a chest CT with contrast on 11/17/2023 which showed marked emphysematous changes. Small focal area of interstitial changes in the right lung base, mostly likely chronic interstitial changes. New 7 mm pleural/parenchymal nodule in the left upper lobe posteriorly, likely benign. 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 Patient is currently sitting up in bed, on 2 L/min nasal cannula, in no acute distress. Chest x-ray this admission showed a peripheral right midlung and left lower lung field infiltrates. Possible atelectasis versus developing pneumonia. Negative for influenza, RSV, COVID. CBC includes a WBC count of 12.7, hemoglobin 13.8, hematocrit 42.6, platelets 518. BMP unremarkable. Normal saline infusing at 75 ml/hr. Troponins are elevated, but trending down, most recent result 0.019. NT proBNP 1820. Afe brile. Nontoxic appearance. Vital signs are stable. Progress note dated November 25. 73-year-old female with history of severe COPD, seen today in room 380. The patient is feeling about the same, may be slightly better than she did yesterday. She was seen in consultation yesterday. She continues on 2 L of oxygen. We have her on updrafts with albuterol sulfate and ipratropium bromide, Solu-Medrol, and Symbicort inhaler. The Symbicort inhaler will be changed to budesonide, and formoterol, twice a day. Current labs include a white count 11.4, hemoglobin 13.3, hematocrit 43.1, and a platelet count of 570,000. Sodium 138, potassium 4.1, chlorides 104, CO2 23, BUN 27, creatinine 0.58. Glucose 156. Albumin 3.1. N-terminal proBNP is 2290. Progress note dated November 27, 2023. 73-year-old female with a history of severe COPD, admitted with a COPD exacerbation. Currently, the patient is on 2 L of oxygen. She is not receiving any IV fluids. She is feeling a bit better today, and actually looks a bit better today. She is sitting in a chair, next to her hospital bed. She appears to be a bit depressed. She is receiving DuoNebs, budesonide, formoterol, and corticosteroids. Labs today include a glucose of 113. Cultures are currently negative. Chest x-ray shows a patchy infiltrate, right upper lobe, which is improved. There is also patchy density in the left lower lobe. Progress note dated November 28, 2023. 73-year-old female with history of severe COPD, admitted with a COPD exacerbation. The patient is doing a bit better today. She continues on oxygen at 2 L. She is not receiving any IV fluids. She actually walked the hallway a bit. She is on appropriate medications. Today, we change her budesonide and formoterol to Symbicort. We also change her IV Solu-Medrol to prednisone. We will also change her IV antibiotic to an oral antibiotic. I am hoping the steve hernandez can be discharged tomorrow. Current labs include a glucose of 133. Blood cultures are currently negative. Chest x-ray shows a patchy right upper lobe infiltrate, that is improved. In addition, she has a patchy left lower lobe infiltrate. Progress note dated November 29, 2023. 73-year-old female with history of severe COPD. She was admitted with a diagnosis of COPD exacerbation. Today, the patient is doing much better. She is currently off oxygen. She is not receiving any IV fluids. She does have an appointment to see me in the office, on Friday. From my perspective, the patient could be discharged home, but we will leave that up to the hospital service. The patient should go home on prednisone with a burst and taper, beginning with 40 to 50 mg. No new labs today other than a glucose of 88. The patient's is at the bedside. I did tell the patient, if she went home, she would really have to take it easy, the rest of today, Friday, and Friday. As mentioned above, she does have an appointment to see me on Friday. The patient is seen today November 30, 2023 in follow-up on the regular medical floor. She is currently sitting up in bed. Awake and alert in no acute distress. She is currently maintaining good O2 saturations in the 90s on room air at rest. No worsening shortness of breath, cough or congestion. Blood cultures revealed no growth. Glucose 75. She remains on DuoNeb ventilations, Symbicort, prednisone taper. Empiric antibiotics in the form of doxycycline. Remains on Mucinex. Lovenox for DVT prophylaxis. Objective - Vital Signs Vital signs: Vital Signs Temp 97.9 F 11/30/23 07:48 Pulse 76 11/30/23 09:09 Resp 18 11/30/23 07:48 BP 122/84 11/30/23 07:48 Pulse Ox 94 L 11/30/23 09:03 FiO2 Intake & Output 11/29/23 11/30/23 11/30/23 18:59 06:59 18:59 Intake Total 236 540 Balance 236 540 Intake: Oral 236 540 Other: Voiding Method Toilet # Voids 3 2 - Exam GENERAL EXAM: Alert, active, very pleasant 73-year-old female, on room air, comfortable in no apparent distress. HEAD: Normocephalic. EYES: Normal reaction of pupils, equal size. NOSE: Clear with pink turbinates. THROAT: No erythema or exudates. NECK: No masses, no JVD. CHEST: No chest wall deformity. LUNGS: Equal air entry with end expiratory wheeze, diminished. CVS: S1 and S2 normal with no audible murmur, regular rhythm. ABDOMEN: No hepatosplenomegaly, normal bowel sounds, no guarding or rigidity. SPINE: No scoliosis or deformity SKIN: No rashes CENTRAL NERVOUS SYSTEM: No focal deficits, tone is normal in all 4 extremities. EXTREMITIES: There is no peripheral edema. No clubbing, no cyanosis. Periph eral pulses are intact. - Labs CBC & Chem 7: 11/26/23 09:15 11/26/23 09:19 Labs: Abnormal Lab Results - Last 24 Hours (Table) 11/29/23 Range/Units 19:56 POC Glucose (mg/dL) 126 H (70-110) mg/dL Microbiology - Last 24 Hours (Table) 11/24/23 12:40 Blood Culture - Final Blood 11/24/23 12:55 Blood Culture - Final Blood Assessment and Plan Assessment: Acute COPD exacerbation, Chest x-ray this admission showed a peripheral right midlung and left lower lung field infiltrates. Could reflect atelectasis versus developing pneumonia. Negative for influenza, RSV, COVID. Acute on chronic shortness of breath, secondary to above. Recent COVID-19 infection. Voice hoarseness, possible laryngitis. Severe chronic obstructive pulmonary disease, with an FEV1 42% of predicted. New 7mm pleural/parenchymal pulmonary nodule, likely benign, however, recommend 6 month follow up outpatient. Elevated troponins, trending down, ACS unlikely. 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 History of hyperlipidemia. History of hypertension. Former tobacco dependence. Plan: The patient was seen and evaluated Medications reviewed To be evaluated for possible home oxygen Currently on room air at rest Continue Symbicort, albuterol, prednisone taper Complete a course of empiric antibiotics Cleared for discharge Keep appointment in our office for 12/02/2023 I have personally seen and examined the patient, performed the documentation and the assessment and plan as written. Number of minutes spent on the visit: 10.
[2023-11-30] MEDS: FUROSEMIDE 10 MG/ML 2 ML VIAL IV ONE (14:26)
--- NOTE | 2023-11-30 14:38 | P.PN ---
Subjective Progress Note Date: 11/30/23 This is a pleasant 73-year-old female who follows with Dr. Hernandez. Patient is being treated for an acute COPD exacerbation as well as hypoxemic respiratory failure. She maintains on 2 L of oxygen with oxygen saturations of 95% would recommend to wean as tolerated. Being followed closely by pulmonary and cardiology services. She continues on steroids was started on an oral prednisone taper today. Additionally she continues on IV ceftriaxone. She is reporting improvement in her shortness of breath and does state that she continues have a cough mostly nonproductive but feels like it is breaking up some. She is continued on Mucinex. Procalcitonin mildly elevated at 0.35. 11/29/2023 Patient seen and evaluated in follow-up today. She was able to be weaned off of the oxygen while at rest however when she is up ambulating her oxygen saturations did drop to an 86 to 87%. Patient prefer not to be discharged home with oxygen therapy will continue to monitor the patient overnight and continue on current course of oral antibiotics and oral prednisone. She does report improvement in her symptoms and is feeling less shortness of breath. 11/30/2023 Patient is evaluated today in follow-up. She is hoping to be discharged home however upon reassessment of her oxygenation she dropped down to 86% on room air while she was up ambulating. Unfortunately she had refused the oxygen yesterday and we are unable to set up home oxygen today and patient will need to remain in the hospital until Friday for this. She continues on a course of oral antibiotics and oral prednisone. We will recommend a dose of IV Lasix as her proBNP was elevated at 2000 on admission. She does have a continued lower extremity edema mostly in the ankles which patient states is chronic for her. Review of Systems Constitutional: Denied any fatigue denied any fever. Cardio vascular: denied any chest pain, palpitations Gastrointestinal: denied any nausea, vomiting, diarrhea Pulmonary: Denied any shortness of breath cough Neurologic denied any new focal deficits All inpatient medications were reviewed and appropriate changes in these medications as dictated in the interval history and assessment and plan. PHYSICAL EXAMINATION: GENERAL: The patient is alert and oriented x3, not in any acute distress. Well developed, well nourished. HEENT: Pupils are round and equally reacting to light. EOMI. No scleral icterus. No conjunctival pallor. Normocephalic, atraumatic. No pharyngeal erythema. No thyromegaly. CARDIOVASCULAR: S1 and S2 present. No murmurs, rubs, or gallops. PULMONARY: Chest is clear to auscultation, no wheezing or crackles. ABDOMEN: Soft, nontender, nondistended, normoactive bowel sounds. No palpable organomegaly. MUSCULOSKELETAL: No joint swelling or deformity. EXTREMITIES: No cyanosis, clubbing, or pedal edema. Patient has mild ankle edema. NEUROLOGICAL: Gross neurological examination did not reveal any focal deficits. SKIN: No rashes. Assessment and Plan -Acute on chronic respiratory failure: Secondary to severe COPD, hypoxia, bilateral pneumonia. Will continue O2, updraft, steroid, pulmonary consultation. -COPD exacerbation: Continue bronchodilator nebulizer along with Solu-Medrol steroid nebulizer. -Acute severe bilateral pneumonia, with right middle lobe and left lower lobe. Procalcitonin level 0.35 on IV ceftriaxone. -Severe myalgia, significantly improved. Was resumed on statin therapy. -Mildly elevated troponin with possible non-ST AL type II: Seen cardiology no sign of AL at this point and troponin trend down. 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 -Hyperlipidemia -Chronic depression and help with smoking cessation: Patient remain on Wellbutrin 75 mg twice a day -Hypokalemia:Continue potassium replacement therapy for now. -Hyperglycemia: Continue Accu-Chek with sliding scale coverage. GI prophylaxis DVT prophylaxis Continue oral prednisone taper antibiotics, patient is on a 5-day course of oral doxycycline. Patient is saturating well on room air however when she is up ambulating her pulse ox drops into the 85 to 86% and based on the guidelines will require home oxygen on discharge. Unfortunately is Friday and patient will need to remain in the hospital Friday so this can be set up by case management. Her proBNP was mildly elevated on admission and we will recommend to give a small dose of IV Lasix. Follow up BMP in the morning. The impression and plan of care has been dictated by Paradise Mathews, Nurse Practitioner as directed. Dr. Naomi MD I have performed a history and physical examination and medical decision making of this patient, discussed the same with the dictator, and agree with the dictators assessment and plan as written, documented as a scribe. Based on total visit time, I have performed more than 50% of this visit. Objective - Vital Signs Vital signs: Vital Signs Temp 97.9 F 11/30/23 07:48 Pulse 74 11/30/23 12:17 Resp 18 11/30/23 07:48 BP 122/84 11/30/23 07:48 Pulse Ox 92 L 11/30/23 13:02 FiO2 Intake & Output 11/29/23 11/30/23 11/30/23 18:59 06:59 18:59 Intake Total 236 540 Balance 236 540 Intake: Oral 236 540 Other: Voiding Method Toilet # Voids 3 2 - Labs CBC & Chem 7: 11/26/23 09:15 11/26/23 09:19 Labs: Abnormal Lab Results - Last 24 Hours (Table) 11/29/23 Range/Units 19:56 POC Glucose (mg/dL) 126 H (70-110) mg/dL Microbiology - Last 24 Hours (Table) 11/24/23 12:40 Blood Culture - Final Blood 11/24/23 12:55 Blood Culture - Final Blood Assessment and Plan Time with Patient: Less than 30
[2023-11-30 14:52] VITALS: RESP 17
[2023-11-30 18:11] LABS: Glucose,Whole Blood 170 mg/dL (70-110)
[2023-11-30 19:52] LABS: Glucose,Whole Blood 157 mg/dL (70-110)
[2023-12-01 06:27] LABS: Glucose,Whole Blood 80 mg/dL (70-110)
--- NOTE | 2023-12-01 06:38 | P.PN ---
Subjective Progress Note Date: 11/27/23 HISTORY OF PRESENT ILLNESS: 73-year-old one of my office patient well-known for long time with past medical history of COPD, mild arrhythmia, history of hypertension, hyperlipidemia, chronic osteoarthritis, chronic vascular cellulitis, mild hyperglycemia, who is known to have advanced COPD with remote history of smoking for long time adequate close to 2 years ago. She was hospitalized last time in December 2021 with COPD exacerbation and severe dyspnea with shortness of breath and has done well. She has been seen pulmonary, cardiology and our service on more regular basis and has been doing well. According to patient developed to have much worsening shortness of breath with dyspnea with minimal exertion for the last 2 weeks become significantly worse last few days that she was not able to stand up and walk has been falling many times she developed to have significant weakness in the upper part of her body. For the last few days developed to have worsening shortness of breath with cough productive of yellow phlegm with low-grade temperature 99.9 with significant expiratory expiratory wheezes patient become more bedbound and started having slight change in mental status with mild confusion. She ended up coming to the emergency department at [facility] where was seen and evaluated, original EKG showed mild tachycardia with no major change. Her troponin came back mildly elevated. White blood cell was 12,700 with left shifted platelet count 518, normal PT/INR electrolyte with mildly hypokalemia slightly elevated blood sugar at 157 with magnesium of 2.4. BNP was 1820 with COVID, influenza and RSV are all negative. Chest x-ray showed peripheral right midlung and left lower field infiltrate correlate with atelectasis versus pneumonia with sign of COPD. Patient was started on O2, updraft treatment on the clock, Solu-Medrol, Rocephin and azithromycin and admit patient to the hospital at this point. 11/25/2023: She is feeling slightly better today, was seen pulmonary service last night agree with the current plan, being on antibiotic along with steroid. With higher oxygen level through the night she is feeling much better. She is not running fever anymore at this point. For another chest x-ray tomorrow the meanwhile continue aggressive management for COPD. She will be seeing cardiology today her troponin become lower with the last 1 but still slightly bit abnormal. Also she is known to have ascending thoracic aneurysm seen vascular and need probably follow-up CAT scan late in the summer this year 4. 11/26/2023: She is doing very bit better today with significant decrease shortness of breath compared to yesterday. Is seen pulmonary agree with the current plan will continue management of COPD exacerbation her FEV1 is only 42 percentile she had 7 mm pleural nodule are likely benign but recommended follow-up in 6 months also 4.4 cm dilated of the ascending thoracic aneurysm has been watch by harshil benedict. Continue corticosteroid along with bronchodilator continue antibiotics as well. 11/27/2023: She is still quite with symptomatic significant shortness of breath cough and wheezes with worsening dyspnea require more help I do not see any gabriel of having her out of the hospital as she is still symptomatic we will continue pulmonary service at this point continue current management patient might leave the hospital on O2 permanently from here on might require help in that regard in the meanwhile with the significant decline in their FEV1 patient required to be on aggressive regimen for COPD she still kind of in denial with her condition feel her COPD is like her blood pressure should be treatable and manageable with simple medication. REVIEW OF SYSTEMS Constitutional: No fever, no chills, no night sweats. No weight change. No weakness, fatigue or lethargy. No daytime sleepiness. EENT: No headache. No blurred vision or double vision, no loss of vision. No loss of Hearing, no ringing in the ears, no dizziness. No nasal drainage or congestion. No epistaxis. No sore throat. Lungs: Reports shortness of breath, cough, no sputum production. Reports wheezing. Cardiovascular: No chest pain, no lower extremity edema. No palpitations. No paroxysmal nocturnal dyspnea. No orthopnea. No lightheadedness or dizziness. No syncopal episodes. Abdominal: No abdominal pain. No nausea, vomiting. No diarrhea. No constipation. No bloody or tarry stools. No loss of appetite. Genitourinary: No dysuria, increased frequency, urgency. No urinary retention. Musculoskeletal: No myalgias. No muscle weakness, no gait dysfunction, no frequent falls. No back pain. No neck pain. Integumentary: No wounds, no lesions. No rash or pruritus. No unusual bruising. No change in hair or nails. Neurologic: No aphasia. No facial droop. No change in mentation. No head injury. No headache. No paralysis. No paresthesia. Psychiatric: No depression. No anxiety. No mood swings. Endocrine: No abnormal blood sugars. No weight change. No excessive sweating or thirst. No cold intolerance. PHYSICAL EXAMINATION Gen: This is a 70-year-old female. She is resting in bed and appears to be comfortable. No acute respiratory distress noted. HEENT: Head is atraumatic, normocephalic. Pupils equal, round. Sclerae is ani cteric. NECK: Supple. No JVD. No lymphadenopathy. No thyromegaly. LUNGS: Bilateral expiratory wheeze and rhonchiClear to auscultation. No wheezes or rhonchi. No intercostal retractions. HEART: Regular rate and rhythm. No murmur. ABDOMEN: Soft. Bowel sounds are present. No masses. No tenderness. EXTREMITIES: No pedal edema. No calf tenderness. NEUROLOGICAL: Patient is awake, alert and oriented with slight confusion. Cranial nerves 2 through 12 are grossly intact. Has been able to do any gait exam. ASSESSMENT AND PLAN: _Acute on chronic respiratory failure: Secondary to severe COPD, hypoxia, bilateral pneumonia, with most likely generalized myalgia. Will continue O2, updraft, steroid, pulmonary consultation. Continue aggressive management will try to approve patient for home O2 along with updraft management. _COPD exacerbation: Continue bronchodilator nebulizer along with Solu-Medrol steroid nebulizer. Still on aggressive regime of management with her FEV1 being very low she can probably benefit from combination of inhaler, along with nebulizer and O2. So far does not require to be on any BiPAP at home. _Acute severe bilateral pneumonia, with right middle lobe and left lower lobe, ER started patient on Rocephin and azithromycin which is reasonable coverage at this point we will continue current medication for any reason patient continued to be more symptomatic will expand coverage to cover gram-negative and cover patient for aspiration as well. Will continue antibiotics will switch to oral in a day or 2. _Severe myalgia: Being off statin at this point and having to be on higher dose of steroid had helped within overnight. Elsie much better being off statin and on steroid. Might resume statin in few weeks. _Mildly elevated troponin with possible non-ST SD type II, troponin trend to be negative patient seen cardiology. 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 _Hypertension: Was on Zestril 5 mg a day titrate dose higher try to keep systolic blood pressure below 140. _Hyperlipidemia: Was on rosuvastatin 10 mg a day with a significant complaint of myalgia continue to be off rosuvastatin for now. _Chronic depression and help with smoking cessation: Patient remain on Wellbutrin 75 mg twice a day resume medication. _Hypokalemia:_Continue potassium replacement therapy for now. _Hyperglycemia: Continue Accu-Chek with sliding scale coverage. Prognosis: Fair. Discussion will continue current management patient might discharge in 48 hours. Objective - Vital Signs Vital signs: Vital Signs Temp 97.8 F 11/26/23 20:00 Pulse 80 11/27/23 04:00 Resp 16 11/27/23 04:00 BP 119/77 11/27/23 04:00 Pulse Ox 94 L 11/27/23 04:00 FiO2 Intake & Output 11/26/23 11/26/23 11/27/23 06:59 18:59 06:59 Intake Total 220 1080 Balance 220 1080 Intake: Oral 220 1080 Other: Voiding Method Toilet Toilet # Voids 1 1 1 - Labs CBC & Chem 7: 11/26/23 09:15 11/26/23 09:19 Labs: Abnormal Lab Results - Last 24 Hours (Table) 11/26/23 11/26/23 11/26/23 Range/Units 06:14 09:15 09:19 WBC 11.4 H (3.8-10.6) k/uL MCV 103.4 H (80.0-100.0) fL MCHC 30.9 L (31.0-37.0) g/dL Plt Count 570 H (150-450) k/uL Neutrophils # 10.7 H (1.3-7.7) k/uL Lymphocytes # 0.4 L (1.0-4.8) k/uL BUN 27 H (7-17) mg/dL Glucose 156 H (74-99) mg/dL POC Glucose (mg/dL) 122 H (70-110) mg/dL Total Protein 5.7 L (6.3-8.2) g/dL Albumin 3.1 L (3.5-5.0) g/dL 11/26/23 11/26/23 11/26/23 Range/Units 11:15 16:13 20:04 WBC (3.8-10.6) k/uL MCV (80.0-100.0) fL MCHC (31.0-37.0) g/dL Plt Count (150-450) k/uL Neutrophils # (1.3-7.7) k/uL Lymphocytes # (1.0-4.8) k/uL BUN (7-17) mg/dL Glucose (74-99) mg/dL POC Glucose (mg/dL) 156 H 111 H 135 H (70-110) mg/dL Total Protein (6.3-8.2) g/dL Albumin (3.5-5.0) g/dL 11/27/23 Range/Units 06:03 WBC (3.8-10.6) k/uL MCV (80.0-100.0) fL MCHC (31.0-37.0) g/dL Plt Count (150-450) k/uL Neutrophils # (1.3-7.7) k/uL Lymphocytes # (1.0-4.8) k/uL BUN (7-17) mg/dL Glucose (74-99) mg/dL POC Glucose (mg/dL) 127 H (70-110) mg/dL Total Protein (6.3-8.2) g/dL Albumin (3.5-5.0) g/dL Microbiology - Last 24 Hours (Table) 11/24/23 12:40 Blood Culture - Preliminary Blood 11/24/23 12:55 Blood Culture - Preliminary Blood
--- NOTE | 2023-12-01 08:09 | P.DS ---
Providers Date of admission: 11/24/23 15:21 Attending physician: Kevin Hernandez Consults: 11/24/23 15:20 Consult Physician Routine Consulting Provider: Yonatan Chandra Reason/Comments: COPD/PNA Do you want consulting provider notified?: Yes Primary care physician: Kevin Hernandez [facility] Course: HISTORY OF PRESENT ILLNESS: 73-year-old one of my office patient well-known for long time with past medical history of COPD, mild arrhythmia, history of hypertension, hyperlipidemia, chronic osteoarthritis, chronic vascular cellulitis, mild hyperglycemia, who is known to have advanced COPD with remote history of smoking for long time adequate close to 2 years ago. She was hospitalized last time in December 2021 with COPD exacerbation and severe dyspnea with shortness of breath and has done well. She has been seen pulmonary, cardiology and our service on more regular basis and has been doing well. According to patient developed to have much worsening shortness of breath with dyspnea with minimal exertion for the last 2 weeks become significantly worse last few days that she was not able to stand up and walk has been falling many times she developed to have significant weakness in the upper part of her body. For the last few days developed to have worsening shortness of breath with cough productive of yellow phlegm with low-grade temperature 99.9 with significant expiratory expiratory wheezes patient become more bedbound and started having slight change in mental status with mild confusion. She ended up coming to the emergency department at [facility] where was seen and evaluated, original EKG showed mild tachycardia with no major change. Her troponin came back mildly elevated. White blood cell was 12,700 with left shifted platelet count 518, normal PT/INR electrolyte with mildly hypokalemia slightly elevated blood sugar at 157 with magnesium of 2.4. BNP was 1820 with COVID, influenza and RSV are all negative. Chest x-ray showed peripheral right midlung and left lower field infiltrate correlate with atelectasis versus pneumonia with sign of COPD. Patient was started on O2, updraft treatment on the clock, Solu-Medrol, Rocephin and azithromycin and admit patient to the hospital at this point. 11/25/2023: She is feeling slightly better today, was seen pulmonary service last night agree with the current plan, being on antibiotic along with steroid. With higher oxygen level through the night she is feeling much better. She is not running fever anymore at this point. For another chest x-ray tomorrow the meanwhile continue aggressive management for COPD. She will be seeing cardiology today her troponin become lower with the last 1 but still slightly bit abnormal. Also she is known to have ascending thoracic aneurysm seen vascular and need probably follow-up CAT scan late in the summer this year 4. 11/26/2023: She is doing very bit better today with significant decrease shortness of breath compared to yesterday. 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 Continue corticosteroid along with bronchodilator continue antibiotics as well. 12/01/2023: She has done well last 48 hours, patient still seen pulmonary and cardiology, her COPD exacerbation and infection is much better, she was evaluated for oxygen through the weekend and apparently is now wearing oxygen for the last 2 days that she will be qualified for oxygen as an outpatient she has an appoint with Dr. Abebe in the office tomorrow is going to go ambulatory oxygen evaluation and baseline at hopefully she will prove for home O2. Her antibiotic will be changed to doxycycline as an outpatient for few more days along with taper prednisone. The patient will be back in the office with fee ling short with time. REVIEW OF SYSTEMS Constitutional: No fever, no chills, no night sweats. No weight change. No weakness, fatigue or lethargy. No daytime sleepiness. EENT: No headache. No blurred vision or double vision, no loss of vision. No loss of Hearing, no ringing in the ears, no dizziness. No nasal drainage or congestion. No epistaxis. No sore throat. Lungs: Reports shortness of breath, cough, no sputum production. Reports wheezing. Cardiovascular: No chest pain, no lower extremity edema. No palpitations. No paroxysmal nocturnal dyspnea. No orthopnea. No lightheadedness or dizziness. No syncopal episodes. Abdominal: No abdominal pain. No nausea, vomiting. No diarrhea. No constipation. No bloody or tarry stools. No loss of appetite. Genitourinary: No dysuria, increased frequency, urgency. No urinary retention. Musculoskeletal: No myalgias. No muscle weakness, no gait dysfunction, no frequent falls. No back pain. No neck pain. Integumentary: No wounds, no lesions. No rash or pruritus. No unusual bruising. No change in hair or nails. Neurologic: No aphasia. No facial droop. No change in mentation. No head injury. No headache. No paralysis. No paresthesia. Psychiatric: No depression. No anxiety. No mood swings. Endocrine: No abnormal blood sugars. No weight change. No excessive sweating or thirst. No cold intolerance. PHYSICAL EXAMINATION Gen: This is a 70-year-old female. She is resting in bed and appears to be comfortable. No acute respiratory distress noted. HEENT: Head is atraumatic, normocephalic. Pupils equal, round. Sclerae is anicteric. NECK: Supple. No JVD. No lymphadenopathy. No thyromegaly. LUNGS: Bilateral expiratory wheeze and rhonchiClear to auscultation. No wheezes or rhonchi. No intercostal retractions. HEART: Regular rate and rhythm. No murmur. ABDOMEN: Soft. Bowel sounds are present. No masses. No tenderness. EXTREMITIES: No pedal edema. No calf tenderness. NEUROLOGICAL: Patient is awake, alert and oriented with slight confusion. Cranial nerves 2 through 12 are grossly intact. Has been able to do any gait exam. ASSESSMENT AND PLAN: _Acute on chronic respiratory failure: Secondary to severe COPD, hypoxia, bilateral pneumonia, much better so far improved compared to admission. _COPD exacerbation: Continue bronchodilator nebulizer she is on oral prednisone will be on tapered dose for few days. She is remain on doxycycline for chlamydia after discharge. _Acute severe bilateral pneumonia, with right middle lobe and left lower lobe, she is remain on oral antibiotics for few more days. _Severe myalgia: Being off statin at this point and having to be on higher dose of steroid had helped within overnight. [place] much better being off statin and on steroid. _Mildly elevated troponin with possible non-ST MS type II: Stress test was negative still seen cardiology. 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 _Hypertension: Was on Zestril 5 mg a day titrate dose higher try to keep systolic blood pressure below 140. _Hyperlipidemia: Was on rosuvastatin 10 mg a day with a significant complaint of myalgia continue to be off rosuvastatin for now. _Chronic depression and help with smoking cessation: Patient remain on Wellbutrin 75 mg twice a day resume medication. _Hypokalemia:_Continue potassium replacement therapy for now. _Hyperglycemia: Continue Accu-Chek with sliding scale coverage. Prognosis: Fair. Discussion patient be able to be discharged home today to follow-up with pulmonary tomorrow and then our office on 11. Hospital course: Patient was hospitalized with severe respiratory failure secon rito to COPD exacerbation along with bilateral pneumonia and elevated troponin. Patient FEV1 was 42 percentile only had quite a difficult with her pneumonia and shortness of breath was on oxygen initially and took herself off oxygen last 2 days in the hospital she will be probably approved for home O2 eventually but she will continue current management for few more days. Cardiology seen patient in the clinic for stress test and she will be seen back in the office as an outpatient. Patient is very stable today to be discharged home with follow-up as an outpatient on day 11. Time spent on discharging patient was over 35 minutes Patient Condition at Discharge: Stable Plan - Discharge Summary Discharge Rx Participant: No New Discharge Prescriptions: New Aspirin 81 mg PO DAILY #30 tab Famotidine [Pepcid] 20 mg PO DAILY #30 tab predniSONE 0 mg PO DIRECTED 16 Days #38 tab Metoprolol Tartrate [Lopressor] 25 mg PO BID #60 tab Nystatin 100,000 Unit/ml Susp [Mycostatin Oral Susp] 500,000 unit PO QID 4 Days #80 ml Doxycycline [Vibramycin] 100 mg PO BID 3 Days #6 cap Continue lisinopriL [Zestril] 5 mg PO DAILY #30 tab Potassium Chloride ER [K-Dur 10] 10 meq PO DAILY Budesonide/Formoterol Fumarate [Symbicort 160-4.5 Mcg Inhaler] 2 puff INHALATION RT-BID buPROPion [Wellbutrin] 75 mg PO BID Albuterol Sulfate [Albuterol Sulfate Hfa] 2 puff INHALATION RT-QID PRN PRN Reason: Shortness Of Breath Rosuvastatin [Crestor] 10 mg PO DAILY Discharge Medication List lisinopriL [Zestril] 5 mg PO DAILY #30 tab 09/08/18 [Rx] Budesonide/Formoterol Fumarate [Symbicort 160-4.5 Mcg Inhaler] 2 puff INHALATION RT-BID 10/04/21 [History] Albuterol Sulfate [Albuterol Sulfate Hfa] 2 puff INHALATION RT-QID PRN 09/12/23 [History] Potassium Chloride ER [K-Dur 10] 10 meq PO DAILY 09/12/23 [History] Rosuvastatin [Crestor] 10 mg PO DAILY 09/12/23 [History] buPROPion [Wellbutrin] 75 mg PO BID 09/12/23 [History] Aspirin 81 mg PO DAILY #30 tab 11/29/23 [Rx] Doxycycline [Vibramycin] 100 mg PO BID 3 Days #6 cap 11/29/23 [Rx] Famotidine [Pepcid] 20 mg PO DAILY #30 tab 11/29/23 [Rx] Metoprolol Tartrate [Lopressor] 25 mg PO BID #60 tab 11/29/23 [Rx] Nystatin 100,000 Unit/ml Susp [Mycostatin Oral Susp] 500,000 unit PO QID 4 Days #80 ml 11/29/23 [Rx] predniSONE 0 mg PO DIRECTED 16 Days #38 tab 11/29/23 [Rx] Follow up Appointment(s)/Referral(s): Enzo Mauricio DO [STAFF PHYSICIAN] - 1 Week (Please call to make a follow-up appointment with the director of vocational training in about one week. ) Kevin Hernandez MD [Primary Care Provider] - 1-2 days (Please call to make a follow- up with your primary care provider within about a week.) Yonatan Chandra DO [Doctor of Osteopathic Medicine] - 1 Week (Please call and make a follow-up with the shoe shiner in about a week. ) Ambulatory/Diagnostic Orders: Basic Metabolic Panel [LAB.AMB] Location: None Selected Complete Blood Count w/diff [LAB.AMB] Time Frame: 3 Days, Location: None Selected Patient Instructions/Handouts: COPD (Chronic Obstructive Pulmonary Disease) (DC) Discharge Disposition: HOME SELF-CARE
[2023-12-01 08:20] LABS: Glucose,Whole Blood 113 mg/dL (70-110)
[2023-12-01 09:00] LABS: BUN/Creat Ratio 26.71 Ratio (12.00-20.00); Blood Urea Nitrogen 18.7 mg/dL (9.0-27.0); Calcium 8.5 mg/dL (8.7-10.3); Carbon Dioxide 28.1 mmol/L (21.6-31.8); Chloride 104 mmol/L (96-109); Glucose 80 mg/dL (70-110); Potassium 3.9 mmol/L (3.5-5.5); Sodium 143 mmol/L (135-145)
[2023-12-01 09:26] VITALS: BP 111/72; PULSE 79; TEMP 97.5
== END 2023-12-01 09:44 | disposition home or self-care (01) | DRG 193 ==
LOC: EC 11:07 → 3SCARD 15:21 → 4SSUR 11-29 21:56
PROVIDERS: ADMIT Internal Medicine Geriatric Medicine; ATTEND Internal Medicine Geriatric Medicine
DX: J18.9 Pneumonia, unspecified organism (principal); I21.A1 Myocardial infarction type 2; J96.21 Acute and chronic respiratory failure with hypoxia; J44.0 Chronic obstructive pulmonary disease with (acute) lower respiratory infection; J44.1 Chronic obstructive pulmonary disease with (acute) exacerbation; I10 Essential (primary) hypertension; E78.5 Hyperlipidemia, unspecified; E87.5 Hyperkalemia; Z86.16 Personal history of COVID-19; I27.20 Pulmonary hypertension, unspecified; R91.1 Solitary pulmonary nodule; Z79.899 Other long term (current) drug therapy; E87.6 Hypokalemia; F32.A Depression, unspecified; Z71.6 Tobacco abuse counseling; M79.10 Myalgia, unspecified site; I08.1 Rheumatic disorders of both mitral and tricuspid valves; R73.9 Hyperglycemia, unspecified; F17.210 Nicotine dependence, cigarettes, uncomplicated; I77.810 Thoracic aortic ectasia; Z74.01 Bed confinement status; Z79.51 Long term (current) use of inhaled steroids; Z82.49 Family history of ischemic heart disease and other diseases of the circulatory system; Z87.19 Personal history of other diseases of the digestive system; Z88.0 Allergy status to penicillin; Z88.2 Allergy status to sulfonamides; Z98.42 Cataract extraction status, left eye; Z98.41 Cataract extraction status, right eye
CPT/HCPCS: 36415; 71046; 80048; 80053; 83605; 83735; 83880; 84145; 84484; 85025; 85610; 85730; 87040; 87636; 93005; 93306; 94640; 94760; 96361; 96365; 96367; 96375; 96376; 99291

== ENCOUNTER → 2023-12-25 | Outpatient (CLI) | payer MEDICARE ==
[2023-12-25 14:24] LABS: HCT 40.2 % (37.2-46.3); MCH 32.6 pg (27.0-32.0); MCHC 32.3 g/dL (32.0-37.0); MCV 100.8 FL (80.0-97.0); Mean Platelet Volume 9.5 FL (9.5-12.2); NRBC Per 100 WBC 0 X 10*3/uL (0.00-0.01); Platelet Count 259 X 10*3/uL (140-440); RBC 3.99 X 10*6/uL (4.10-5.20); RDW 13.7 % (11.5-14.5); WBC 4.21 X 10*3/uL (4.50-10.00)
[2023-12-25 14:50] LABS: Blood Urea Nitrogen 10.5 mg/dL (9.0-27.0); Carbon Dioxide 25.5 mmol/L (21.6-31.8); Chloride 106 mmol/L (96-109); Potassium 4.3 mmol/L (3.5-5.5); Sodium 142 mmol/L (135-145)
== END | disposition home or self-care (01) ==
LOC: LABPAT 10:10
PROVIDERS: ATTEND Internal Medicine
DX: Z01.812 Encounter for preprocedural laboratory examination (principal); R06.02 Shortness of breath
CPT/HCPCS: 80051; 82565; 84520; 85027

== ENCOUNTER 2023-12-30 07:48 | Day surgery (SDC) | payer MEDICARE ==
[~2023-12-30 07:48] MED LIST changes: +ALPRAZolam 0.25 MG TAB PO PRN; +ALPRAZolam 0.5 MG TAB PO PRN; +ASPIRIN 325 MG TAB PO ONE; +HEPARIN SODIUM,PORCINE (1 ML) 2,500 UNIT in SODIUM CHLORIDE 0.9% 250 ML IRRIGATION PRN; +HEPARIN SODIUM,PORCINE 10,000 UNIT in SODIUM CHLORIDE 0.9% 1,000 ML IRRIGATION PRN; -LACTATED RINGERS 1,000 ML IV SCH; +NITROGLYCERIN SL TABS 0.4 MG TAB SUBLINGUAL PRN; +SODIUM CHLORIDE 0.9% 1,000 ML in EMPTY BAG 1 BAG IV SCH
[2023-12-30] MEDS: SODIUM CHLORIDE 0.9% 1,000 ML IV ONE (08:07)
[2023-12-30] MEDS: ASPIRIN 81 MG ONE (08:09)
[2023-12-30] MEDS ORDERED: HEPARIN SODIUM 1,000 UN/ML (10ML VL) ONE (08:46)
[2023-12-30] MEDS ORDERED: fentaNYL (PF) 50 MCG/ML 2 ML AMP ONE (08:46)
[2023-12-30] MEDS ORDERED: LIDOCAINE 1% INJ 10MG/ML (20 ML MDV) ONE (08:47)
[2023-12-30] MEDS ORDERED: VERAPAMIL 2.5 MG/ML 2 ML AMP ONE (08:47)
[2023-12-30 09:00] VITALS: RESP 16; TEMP 97.8
[2023-12-30] MEDS: MIDAZOLAM 2 MG/2 ML VIAL IVP ONE (09:25)
[2023-12-30] MEDS: fentaNYL (PF) 50 MCG/1 ML VIAL IVP ONE (09:26)
[2023-12-30] MEDS: LIDOCAINE 1% INJ 10MG/ML (20 ML MDV) SQ ONE (09:27)
[2023-12-30] MEDS: VERAPAMIL SYRINGE (5 MG/10 ML) INTRAARTER ONE (09:29)
[2023-12-30] MEDS: HEPARIN SODIUM 1,000 UN/ML (10ML VL) IVP ONE (09:31)
[2023-12-30] MEDS: IOPAMIDOL-370 100ML BTL INJ ONE (09:44)
[2023-12-30 15:14] VITALS: BP 104/58; PULSE 75
--- NOTE | 2023-12-30 22:27 | P.CARDCATH ---
Description of Procedure: PROCEDURES PERFORMED: Left heart catheterization, bilateral coronary angiography, ultrasound guided arterial access, iFR LAD INDICATION: Dyspnea on exertion concerning for angina CONSENT:I have discussed the risks, benefits and alternative therapies for the above-mentioned procedure and for both sedation/analgesia as well as necessary blood product administration, if indicated, as they pertain to this patient. The patient has indicated understanding and acceptance of the risks and procedures discussed. PROCEDURE: After the risks, benefits and alternatives of the above mentioned procedure explained in detail with the patient, informed consent was obtained. Patient was taken to the catheterization lab and prepped and draped in usual fashion. Ultrasound guidance was used to assess for arterial access. 1% lidocaine was used to anesthetize the right radial artery. A 6-[place] sheath was placed in the right radial artery using modified Seldinger technique and ultrasound guidance. Left coronary angiography was performed with a 5-[place] JL 3.5 catheter and right coronary angiography was performed with a 5-[place] FR5 ca theter in various views. A 5-[place] FR5 catheter was inserted into the left ventricle and pressure measurements were obtained. Given LAD covered a big territory and significant calcification with possibility of proximal LAD being significant, the decision was made to perform iFR of the LAD. Heparin was given. Using the FL 3.5 catheter, a 0.014 pressure wire was advanced into the proximal left main and normalized. It was then advanced 1 cm distal to the proximal LAD lesion and iFR was performed and was normal at 0.96. The right radial sheath was removed and a TR band was placed with hemostasis achieved. The patient tolerated the procedure well. Patient was transported back to the post catheterization holding area in stable condition. Conscious Sedation: Patient was monitored under the direct supervision of myself for conscious sedation using Versed and fentanyl for a total duration of 19 minutes HEMODYNAMICS: Ao: 132/78 LV: 130/2, LVEDP 18 SELECTIVE CORONARY ARTERIOGRAPHY: LEFT MAIN: The left main is a large caliber vessel which bifurcates into the LAD and circumflex. There is no significant stenosis. LEFT ANTERIOR DESCENDING CORONARY ARTERY: LAD is a large caliber vessel which wraps around to the apex. There is a proximal LAD 30-40% calcified stenosis and otherwise mild luminal irregularities. LEFT CIRCUMFLEX CORONARY ARTERY: Left circumflex is a moderate caliber vessel without significant stenosis. RIGHT CORONARY ARTERY: The right coronary artery is a large caliber vessel which gives off a PDA and PLV branch and is the dominant vessel. There is proximal PDA 30% stenosis and otherwise mild luminal irregularities. FINAL IMPRESSION: 1. Relatively normal coronary arteries other than proximal LAD 30-40% and proximal PDA 30% stenosis 2. Mildly elevated left sided filling pressures 3. iFR LAD normal PLAN: 1. Aggressive risk factor modification per most recent ACC/AHA guidelines. 2. Follow-up in the office in 1-2 weeks. May consider trial of increasing antianginals for microvascular disease or increasing diuresis.
== END 2023-12-30 13:44 | disposition home or self-care (01) ==
LOC: CATHCVL 07:48
PROVIDERS: ATTEND Internal Medicine
DX: I25.10 Atherosclerotic heart disease of native coronary artery without angina pectoris (principal); I10 Essential (primary) hypertension; E78.5 Hyperlipidemia, unspecified; J44.9 Chronic obstructive pulmonary disease, unspecified; Z82.49 Family history of ischemic heart disease and other diseases of the circulatory system; F17.210 Nicotine dependence, cigarettes, uncomplicated; Z88.0 Allergy status to penicillin; Z88.2 Allergy status to sulfonamides; Z79.899 Other long term (current) drug therapy
CPT/HCPCS: 93458; 93799; 76937; C1769 ×2; C1894; J2250; J2001; J1644; Q9967; J3010